=== PATIENT | male | born 1945 | race Caucasian/White ===

== ENCOUNTER → 2017-09-12 13:57 | Outpatient (CLI) | payer MEDICARE, SELFPAY ==
--- NOTE | 2017-09-12 | DI.RAD.S_ITS ---
PROCEDURE: XR SHOULDER RT MIN 2V INDICATIONS: SHOULDER PAIN TECHNIQUE: 3 views of the shoulder were acquired. COMPARISON: [facility], , XR SHOULDER 2V RIGHT, 02/16/2005, 12:13. FINDINGS: Bones: No fractures or dislocations. No suspicious bony lesions. Visualized ribs appear intact. Degenerative a.c. joint disease is again noted. Soft tissues: No suspicious soft tissue calcifications. IMPRESSION: Arthritis right a.c. joint Dictated by: Parish Abarca M.D. on 09/12/2017 at 14:25 Approved by: Parish Abarca M.D. on 09/12/2017 at 14:26
--- NOTE | 2017-09-12 | DI.CT.S_ITS ---
PROCEDURE: CT CHEST WO CON INDICATIONS: Lung nodules TECHNIQUE: Noncontrast 2.0-2.5 mm thick sections acquired from the pulmonary apices to the posterior costophrenic angles. 7 mm thick coronal and sagittal MIP reformats were then acquired. A low radiation dose technique was utilized. COMPARISON: [facility], CT, THORAX WITHOUT CONTRAST, 09/28/2010, 12:46. [facility], CT, PE STUDY (CTA CHEST), 01/08/2011, 20:59. [facility], CT, THORAX WITHOUT CONTRAST, 09/24/2016, 13:18. [facility], CR, CHEST 2 VIEW, 07/03/2014, 16:56. FINDINGS: Image quality: Diagnostic, given the low radiation dose technique. Lungs and pleura: There is mild to moderate emphysema. Small pulmonary nodules are present in the lower lobes bilaterally, unchanged in size. For example, there is a 3 mm nodule in the right lower lobe (series 3 image 103), unchanged. A calcified nodule is seen in the same slice in the right lower. A couple of nodules are present in the left lower lobe, measuring 2 mm (series 3 image 99) and 3 mm (series 3 image 113), also stable. There is a calcified nodule in the right upper lobe in the posterior segment. There is left basilar scars/atelectasis. Mediastinum: Heart size is normal. No pericardial effusion. No mediastinal adenopathy by size criteria. Thoracic aorta and central pulmonary arteries are normal in size. Esophagus is normal in caliber. Tiny hiatal hernia. Bones and chest wall: No suspicious bony lesions. No vertebral body compression fractures. No axillary or supraclavicular adenopathy by size criteria. Thyroid gland is normal. Abdomen: There is a 3.5 cm exophytic cyst in the superior pole the left kidney. Visualized upper abdomen solid organs and bowel loops appear normal in the absence of contrast. IMPRESSION: 1. Stable subcentimeter lung nodules bilaterally in lower lobes as described. 2. Calcified nodules are likely secondary to old granulomatous disease. 3. Mild to moderate emphysema. Fleischner Society criteria for SOLID lung nodule followup. Nodule size (mm)Low-risk patientHigh-risk patient<6 (single or multiple)No routine followup.Optional CT at 12 months. 6-8 (single or multiple)CT at 6-12 months, then optional CT at 18-24 mo.CT at 6-12 months, then CT at 18-24 months. >8 (single)CT at 3 months, PET-CT, or biopsy. Same as for low-risk pts. >8 (multiple)CT at 3-6 months, then optional CT at 18-24 mo.CT at 3-6 months, then CT at 18-24 months. Fleischner Society criteria for SUB-SOLID lung nodule followup. Solitary pure ground-glass nodules<6 mm (ground glass or part solid)No followup needed. 6 mm or larger (ground glass)CT at 6-12 months to confirm persistence, then CT every 2 years until 5 years.6 mm or larger (part solid)CT at 3-6 months to confirm persistence, then annual CT until 5 years if unchanged and solid component remains <6 mm. Multiple sub-solid nodules<6 mmCT at 3-6 months, then CT consider at 2 & 4 years for high risk patients. [address] at 3-6 months. Subsequent management based on most suspicious lesions. Recommendations do not apply to lung cancer screening, patients with immunosuppression, or patients with known primary cancer. Dictated by: Calvin Fields M.D. on 09/12/2017 at 16:20 Approved by: Calvin Fields M.D. on 09/14/2017 at 13:44
== END ==
PROVIDERS: PCP Family Medicine; Visit Provider Family Medicine
DX: R91.8 Other nonspecific abnormal finding of lung field (principal); J43.9 Emphysema, unspecified; M19.011 Primary osteoarthritis, right shoulder
CPT/HCPCS: 71250; 73030

== ENCOUNTER → 2017-09-22 12:40 | Outpatient (CLI) | payer MEDICARE, SELFPAY ==
--- NOTE | 2017-09-22 | DI.US.S_ITS ---
PROCEDURE: US ABD AORTA ANEURYSM SCREEN INDICATIONS: AAA SCREEN TECHNIQUE: Real time scanning was performed of the aorta and iliac arteries, with image documentation. COMPARISON: None. FINDINGS: Aorta: Proximal aortic diameter measures 2.3 cm. Mid-aorta measures 1.8 cm. Distal aortic diameter is 1.5 cm. Iliac arteries: Right common iliac artery measures 1.0 cm. Left common iliac artery measures 1.1 cm. IMPRESSION: No aortic aneurysm Dictated by: Parish Abarca M.D. on 09/22/2017 at 13:33 Approved by: Parish Abarca M.D. on 09/22/2017 at 13:34
== END ==
PROVIDERS: PCP Family Medicine; Visit Provider Family Medicine
DX: Z13.6 Encounter for screening for cardiovascular disorders (principal)
CPT/HCPCS: 76706

== ENCOUNTER → 2018-09-25 15:47 | Outpatient (CLI) | payer MEDICARE, SELFPAY ==
--- NOTE | 2018-09-25 | DI.RAD.S_ITS ---
PROCEDURE: XR CHEST 2V INDICATIONS: HISTORY OF PNEUMONIA,BACK PAIN TECHNIQUE: 2 views of the chest were acquired. COMPARISON: [facility], , CHEST 2 VIEW, 07/03/2014, 16:56. FINDINGS: Surgical changes and devices: None. Lungs and pleura: No acute consolidation. Scattered subsegmental atelectasis and/or scarring. No pleural effusions or pneumothorax. Blunting of the left costophrenic angle is unchanged Mediastinum: Mediastinal contours are normal. Heart size is normal. Bones and chest wall: No suspicious bony abnormalities. Soft tissues appear unremarkable. IMPRESSION: No acute disease. Scattered scarring/atelectasis. Dictated by: Abram Pulliam M.D. on 09/25/2018 at 17:12 Approved by: Abram Pulliam M.D. on 09/25/2018 at 17:13
== END ==
PROVIDERS: PCP Family Medicine; Visit Provider Family Medicine
DX: M54.9 Dorsalgia, unspecified (principal); Z87.01 Personal history of pneumonia (recurrent)
CPT/HCPCS: 71046

== ENCOUNTER → 2018-11-09 10:55 | Outpatient (CLI) | payer MEDICARE, SELFPAY ==
--- NOTE | 2018-11-09 11:08 | DI.CT.S_ITS ---
PROCEDURE: CT CHEST WO CON INDICATIONS: CHEST PAIN TECHNIQUE: Noncontrast 5 mm thick sections acquired from the pulmonary apices to the posterior costophrenic angles. 1 mm lung window, 5 mm thick coronal and sagittal and 7 mm axial MIP reformats were then acquired. For radiation dose reduction, the following was used: automated exposure control, adjustment of mA and/or kV according to patient size. COMPARISON: [facility], CT, CT CHEST WO CON, 09/12/2017, 14:17. FINDINGS: Image quality: Excellent. Lungs and pleura: No acute consolidation. Scattered subsegmental atelectasis and/or scarring. Upper lobe predominant centrilobular emphysema. Scattered calcified granulomatous change, chronic. 2 mm right basilar pulmonary nodule is unchanged. Lingular linear/bandlike scarring and atelectasis. Additional 2 mm nodules in the left lung base, for example image 26 series 2, also unchanged. Central bronchial wall thickening, with areas of mucoid impaction involving the left lower lobe. No pleural effusions or pneumothorax. Central and peripheral airways are patent and normal in caliber. Mediastinum: Heart size is normal. Coronary artery calcifications are present. No pericardial effusion. Small right posterior thigh containing diaphragmatic hernia. He No mediastinal adenopathy by size criteria. Thoracic aorta and central pulmonary arteries are normal in size. Esophagus is normal in caliber. No hiatal hernia. Bones and chest wall: No suspicious bony lesions. No vertebral body compression fractures. No axillary or supraclavicular adenopathy by size criteria. Thyroid gland unremarkable. Abdomen: Visualized upper abdominal solid organs and bowel loops appear normal in the absence of contrast. Simple appearing left renal cyst measuring 3-4 cm befor as before e IMPRESSION: Overall, no acute process. No focal consolidation. Chronic scarring and atelectasis as above. Redemonstration of long standing granulomatous sequela, unchanged. Coronary artery disease. Upper lobe predominant centrilobular emphysema. Central bronchial wall thickening, suggesting reactive airways disease and/or nonspecific bronchitis. Dictated by: Abram Pulliam M.D. on 11/09/2018 at 13:31 Approved by: Abram Pulliam M.D. on 11/09/2018 at 13:43
== END ==
PROVIDERS: PCP Family Medicine; Visit Provider Family Medicine
DX: R07.9 Chest pain, unspecified (principal); J98.4 Other disorders of lung; J98.11 Atelectasis; I25.10 Atherosclerotic heart disease of native coronary artery without angina pectoris; J43.2 Centrilobular emphysema
CPT/HCPCS: 71250

== ENCOUNTER 2019-01-03 17:38 | Emergency (ER) | payer MEDICARE, SELFPAY ==
[2019-01-03 17:45] VITALS: BP 150/83; PULSE 106; RESP 15; TEMP 38.5; O2SAT 99
--- NOTE | 2019-01-03 18:12 | ED.FEVER ---
HPI - Fever General Chief Complaint: Fever Stated Complaint: says running a temp of 103. Time Seen by Provider: 01/03/19 18:09 Source: patient Mode of arrival: ambulatory Limitations: no limitations History of Present Illness HPI Narrative: Patient is a 73-year-old male. Has a history of COPD. Here for evaluation of a fever. He states that he has had the fever for the past 3 days. He did take some Tylenol or ibuprofen today. He did contact his primary doctor told him that if the fever ?spikes ?he needed to come to the emergency department. He denies any chest pain, shortness of breath, abdominal pain. He does state that he has had off and on lower back pain for the past several weeks if not months or more. He also has left-sided groin pain that has also been off and on for the past several weeks if not months or longer. No urinary symptoms. No change in bowel habits. No rashes. no other sick contacts. He states that he does have a cough at this is been going on for 8 years now. He also has a sore throat that he contributes to sinus congestion which has also been going on for many years now. Related Data Home Medications Medication Instructions Recorded Confirmed aspirin 81 mg PO QPM 01/03/19 01/03/19 cholecalciferol (vitamin D3) 1,000 unit PO QPM 01/03/19 01/03/19 [Vitamin D3] cyanocobalamin (vitamin B-12) 1,000 mcg PO QPM 01/03/19 01/03/19 [Vitamin B-12] latanoprost 1 drp OPHTHALMIC (EYE) BEDTIME 01/03/19 01/03/19 pravastatin 20 mg PO BEDTIME 01/03/19 01/03/19 tiotropium bromide [Spiriva with 1 cap INHALATION DAILY 01/03/19 01/03/19 HandiHaler] Allergies Allergy/AdvReac Type Severity Reaction Status Date / Time No Known Drug Allergies Allergy Verified 01/03/19 17:45 Review of Systems Constitutional Constitutional: Reports fever(s) and Denies headache(s) Eyes Eyes: Denies change in vision ENT Ears, Nose, Mouth, and Throat: Denies headache(s) and Denies disequilibrium Cardiovascular Cardiovascular: Denies chest pain, Denies edema, Denies palpitations and Denies dyspnea Respiratory Respiratory: Denies dyspnea Gastrointestinal Gastrointestinal: Denies abdominal pain, Denies nausea and Denies vomiting Genitourinary Genitourinary: Denies dysuria Comments: Left-sided groin pain Musculoskeletal Musculoskeletal: Denies abnormal gait, Reports back pain, Denies myalgias and Denies arthralgias Integumentary/Breasts Skin/Breast: Denies lesions and Denies rash Neurologic Neurologic: Denies abnormal gait, Denies behavioral changes, Denies headache(s) and Denies disequilibrium Psychiatric Psychiatric: Denies behavioral changes Endocrine Endocrine: Denies palpitations Hematologic/Lymphatic Hematologic/Lymphatic: Denies easy bleeding and Denies easy bruising [facility], [facility] Medical History COPD (chronic obstructive pulmonary disease) (Acute) Social History Smoking Status: Current every day smoker Social History Smoking Status: Current every day smoker Exam Initial Vital Signs Initial Vital Signs: Vital Signs Temperature 101.3 F H 01/03/19 17:45 Pulse Rate 106 H 01/03/19 17:45 Respiratory Rate 15 01/03/19 17:45 Blood Pressure 150/83 H 01/03/19 17:45 Pulse Oximetry 99 01/03/19 17:45 Const General: cooperative, healthy appearing, comfortable, well developed, well groomed and No acute distress Orientation: alert and oriented x3 HENMT Head: normal to inspection and normocephalic Ears: TM's normal bilaterally Mouth: oral mucosae normal Throat: posterior oropharynx normal Resp Effort & Inspection: normal respiratory effort Auscultation: clear to auscultation bilaterally Cardio Rate: regular rate Rhythm: regular rhythm Pulses: radial pulses present GI Inspection: non-distended Palpation: soft, No firm and No tender Rectal Exam: visual inspection normal Other: Patient has no left-sided groin tenderness. He does state that the tenderness is over 1 of the abductor tendons. No prostate tenderness on rectal exam. Back/Spine/Pelvis Thoracic/Lumbar Spine: No thoracic spinal tenderness and No lumbar spinal tenderness Skin Lesions: no lesions Rashes: no rashes Neuro General: alert and awake Cognition: normal cognition Speech: speech normal Motor: muscle tone normal throughout Sensory Exam: no sensory deficits noted Extrem General: normal to inspection and capillary refill normal Psych Appearance: grossly normal and well kempt Course Orders Ordered: ED Orders 01/03/19 18:11 XR chest 2V Stat 01/03/19 18:14 EKG-12 Lead Stat 01/03/19 18:30 Complete Blood Count AUTO DIFF Stat Comprehensive Metabolic Panel Stat Lactate (Lactic Acid) Stat Lipase Stat Procalcitonin Stat 01/03/19 18:50 Blood Culture Stat Discontinued Medications Acetaminophen (Tylenol) 650 mg PO NOW ONE Stop: 01/03/19 18:10 Last Admin: 01/03/19 19:23 Dose: 650 mg Documented by: VAN Sodium Chloride (Normal Saline 0.9%) 1,000 mls @ 1,000 mls/hr IV BOLUS ONE Stop: 01/03/19 19:08 Last Infusion: 01/03/19 20:13 Dose: 0 mls/hr Documented by: Admin: 01/03/19 19:24 Dose: 1,000 mls/hr Documented by: VAN Vital Signs Vital signs: Vital Signs - 8 hr 01/03/19 17:45 01/03/19 18:32 01/03/19 19:34 Temperature 101.3 F H 100.4 F H Pulse Rate 106 H 96 H 88 Respiratory Rate 15 17 Blood Pressure 150/83 H Blood Pressure [Right Arm] 152/69 H 136/61 Pulse Oximetry 99 97 98 01/03/19 20:12 01/03/19 20:13 Temperature 101.4 F H 101.4 F H Pulse Rate 82 Respiratory Rate 19 Blood Pressure 140/64 Blood Pressure [Right Arm] Pulse Oximetry 99 MDM - Fever Lab Data Attestation: I reviewed the patient's lab results. Result diagrams: 01/03/19 18:30 01/03/19 18:30 Labs: Lab Results 01/03/19 01/03/19 01/03/19 Range/Units 18:30 18:30 18:30 WBC 15.5 H (4.5-11.0) X10^3/uL RBC 4.71 (4.5-5.9) X10^6/uL Hgb 14.6 (13.5-17.5) g/dL Hct 41.9 (41-53) % MCV 89.1 (80-100) fL MCH 31.0 (26-34) PG MCHC 34.8 (30-36) % RDW 13.5 (11.6-14.8) % Plt Count 159 (150-400) X10^3/uL Neut % (Auto) 88.2 H (50-75) % Lymph % (Auto) 4.8 L (25-40) % Sandoval % (Auto) 6.2 (3-14) % Eos % (Auto) 0.3 L (2-4) % Baso % (Auto) 0.5 (0-2) % Neut # (Auto) 37294 H (5774-4560) /uL Lymph # (Auto) 700 L (1555-3256) /uL Sandoval # (Auto) 1000 H (0-900) /uL Eos # (Auto) 0 (0-450) /uL Baso # (Auto) 100 (0-100) /uL Sodium 135 L (137-145) mmol/L Potassium 3.6 (3.4-5.1) mmol/L Chloride 104 (98-107) mmol/L Carbon Dioxide 22 (22-32) mmol/L BUN 20 (9-20) mg/dL Creatinine 0.90 (0.66-1.25) mg/dL Estimated GFR > 60.0 (>60) mL/min BUN/Creatinine Ratio 22.2 H (6-22) Glucose 110 (80-110) mg/dL Lactate (0.7-2.1) mmol/L Calcium 9.0 (8.4-10.2) mg/dL Total Bilirubin 0.9 (0.2-1.3) mg/dL AST 23 (17-59) IU/L ALT 19 L (21-72) IU/L Alkaline Phosphatase 72 (38-126) U/L Total Protein 7.1 (6.3-8.2) g/dL Albumin 3.9 (3.5-5.0) g/dL Globulin 3.2 (1.7-4.1) g/dL Albumin/Globulin Ratio 1.2 (1.0-2.8) Lipase 34 (23-300) U/L Procalcitonin 0.05 (<0.5) ng/mL 01/03/19 Range/Units 18:30 WBC (4.5-11.0) X10^3/uL RBC (4.5-5.9) X10^6/uL Hgb (13.5-17.5) g/dL Hct (41-53) % MCV (80-100) fL MCH (26-34) PG MCHC (30-36) % RDW (11.6-14.8) % Plt Count (150-400) X10^3/uL Neut % (Auto) (50-75) % Lymph % (Auto) (25-40) % Sandoval % (Auto) (3-14) % Eos % (Auto) (2-4) % Baso % (Auto) (0-2) % Neut # (Auto) (7707-8971) /uL Lymph # (Auto) (0610-6040) /uL Sandoval # (Auto) (0-900) /uL Eos # (Auto) (0-450) /uL Baso # (Auto) (0-100) /uL Sodium (137-145) mmol/L Potassium (3.4-5.1) mmol/L Chloride (98-107) mmol/L Carbon Dioxide (22-32) mmol/L BUN (9-20) mg/dL Creatinine (0.66-1.25) mg/dL Estimated GFR (>60) mL/min BUN/Creatinine Ratio (6-22) Glucose (80-110) mg/dL Lactate 0.9 (0.7-2.1) mmol/L Calcium (8.4-10.2) mg/dL Total Bilirubin (0.2-1.3) mg/dL AST (17-59) IU/L ALT (21-72) IU/L Alkaline Phosphatase (38-126) U/L Total Protein (6.3-8.2) g/dL Albumin (3.5-5.0) g/dL Globulin (1.7-4.1) g/dL Albumin/Globulin Ratio (1.0-2.8) Lipase (23-300) U/L Procalcitonin (<0.5) ng/mL Urine Dip Bedside Urine Glucose Negative Bedside Urine Bilirubin - Negative Bedside Urine Ketone - Negative Urine Specific [place] 1.020 Bedside Urine Occult Blood - Negative Bedside Urine pH 6.0 Bedside Urine Protein +/- 15 Bedside Urine Urobilinogen +/- 1mg Bedside Urine Nitrite - Negative Bedside Urine Leukocytes - Negative Esterase Imaging Data Chest x-ray: Radiologist's impression: [address] [address] XRay Report Signed Patient: Judah Cee [facility]#: [id number] : 3Acct:[id number] Age/Sex: 73 / MDate of Service: 01/03/19 Loc: ED Accession Number: [id number] Procedure: XR chest 2V Ordering Provider: Rj Yañez D.O. PROCEDURE: XR CHEST 2V INDICATIONS: sepsis screen for PNA TECHNIQUE: 2 views of the chest were acquired. COMPARISON: [facility], CR, XR CHEST 2V, 09/25/2018, 15:55. FINDINGS: Surgical changes and devices: None. Lungs and pleura: Bibasilar scarring. No acute pulmonary infiltrates. No pleural effusions or pneumothorax. Mediastinum: Mediastinal contours are normal. Heart size is normal. Bones and chest wall: No suspicious bony abnormalities. Soft tissues appear unremarkable. IMPRESSION: Bibasilar scarring. No evidence acute pulmonary process. Dictated by: Sonu Barnoe M.D. on 01/03/2019 at 19:14 Approved by: Sonu Barone M.D. on 01/03/2019 at 19:14 ECG Data Attestation: I personally reviewed and interpreted this ECG as follows: Prior ECG tracings: not available for review Interpretation: Sinus rhythm Ventricular rate of 92 Normal axis Normal QRS Normal QTC No ST T wave changes MDM Narrative Medical decision making narrative: Patient is extremely nontoxic appearing. I do not have a specific source of his infection. Does not appear to be pneumonia. His abdomen is soft. He has no testicular tenderness. His prostate is nontender. I do not think that is low back pain is related to prostatitis. He has no signs urinary tract infection. No rashes. I do not have a specific source of his infection. I have no indication for antibiotics. I did considered atypical pneumonia given his COPD exacerbation but he has had no chest pain or shortness of breath or change in his cough. We did discuss use of Tylenol and ibuprofen. I have him follow up with his primary provider. He was given strict return precautions. He expressed understanding and agreement with plan. Discharge Plan Departure Patient Disposition: Home Clinical Impression: Fever of unknown origin Discharge Date/Time: 01/03/19 20:16 Instructions: DI for Fever (Symptom) -- Adult Activity Restrictions/Additional Instructions: You can do 2 regular strength Tylenol every 4-6 hours and/or 3x 200 mg Motrin/ibuprofen every 6-8 hours as needed for fevers. Contact your primary doctor tomorrow for a follow-up. Return to the emergency department for any new symptoms to include chest pain, shortness of breath, productive cough, abdominal pain, rashes, urinary symptoms, or any other concerning symptoms. Continue all of your other medications as directed Prescriptions: No Action latanoprost 0.005 % drops 1 drp OPHTHALMIC (EYE) BEDTIME RF: 0 cyanocobalamin (vitamin B-12) [Vitamin B-12] 1,000 mcg tablet 1,000 mcg PO QPM RF: 0 aspirin 81 mg tablet,chewable 81 mg PO QPM RF: 0 pravastatin 20 mg tablet 20 mg PO BEDTIME RF: 0 cholecalciferol (vitamin D3) [Vitamin D3] 1,000 unit capsule 1,000 unit PO QPM RF: 0 Spiriva with HandiHaler 18 mcg capsule, w/inhalation device 1 cap INHALATION DAILY RF: 0 Referrals: Cisco Villafana MD [Primary Care Provider] -
[2019-01-03 18:32] VITALS: BP 152/69; PULSE 96; O2SAT 97
[2019-01-03 18:43] LABS: Add Manual Diff / Slide Review NO; Basophils Absolute Auto 100 /uL (0-100); Basophils Percent Auto 0.5 % (0-2); Eosinophils Absolute Auto 0 /uL (0-450); Eosinophils Percent Auto 0.3 % (2-4); Hematocrit 41.9 % (41-53); Hemoglobin 14.6 g/dL (13.5-17.5); Lymphocytes Absolute Auto 700 /uL (1100-4500); Lymphocytes Percent Auto 4.8 % (25-40); Mean Corpuscular HGB Conc 34.8 % (30-36); Mean Corpuscular Volume 89.1 fL (80-100); Monocytes Absolute Auto 1000 /uL (0-900); Monocytes Percent Auto 6.2 % (3-14); Neutrophils Absolute Auto 13700 /uL (1500-7000); Neutrophils Percent Auto 88.2 % (50-75); Platelet Count 159 X10^3/uL (150-400); Red Blood Cell Count 4.71 X10^6/uL (4.5-5.9); Red Cell Distribution Width 13.5 % (11.6-14.8); White Blood Cell Count 15.5 X10^3/uL (4.5-11.0)
[2019-01-03 18:57] LABS: Lactate (Lactic Acid) 0.9 mmol/L (0.7-2.1)
[2019-01-03 18:58] LABS: Alanine Aminotransferase 19 IU/L (21-72); Albumin 3.9 g/dL (3.5-5.0); Albumin Globulin Ratio 1.2 (1.0-2.8); Alkaline Phosphatase 72 U/L (38-126); Aspartate Aminotransferase 23 IU/L (17-59); BUN Creatinine Ratio 22.2 (6-22); Bilirubin Total 0.9 mg/dL (0.2-1.3); Blood Urea Nitrogen 20 mg/dL (9-20); Carbon Dioxide 22 mmol/L (22-32); Chloride 104 mmol/L (98-107); Estimated Glomerular Filt Rate > 60.0 mL/min (>60); Globulin 3.2 g/dL (1.7-4.1); Glucose 110 mg/dL (80-110); HEMOLYSIS < 15 (0-50); Lipase 34 U/L (23-300); Potassium 3.6 mmol/L (3.4-5.1); Sodium 135 mmol/L (137-145); Total Protein 7.1 g/dL (6.3-8.2)
[2019-01-03 19:17] LABS: Procalcitonin 0.05 ng/mL (<0.5)
[2019-01-03] MEDS: ACETAMINOPHEN 325 MG TABLET 650 MG PO (19:23)
[2019-01-03] MEDS: SODIUM CHLORIDE 0.9% 1,000 ML 1000 ML IV (19:24)
[2019-01-03 19:34] VITALS: BP 136/61; PULSE 88; RESP 17; TEMP 38; O2SAT 98
[2019-01-03 20:12] VITALS: TEMP 38.6
[2019-01-03 20:13] VITALS: BP 140/64; PULSE 82; RESP 19; TEMP 38.6; O2SAT 99
== END 2019-01-03 20:16 | disposition home or self-care (01) ==
PROVIDERS: Emergency Provider Emergency Medicine; PCP Family Medicine
DX: R50.9 Fever, unspecified (principal); R07.9 Chest pain, unspecified; J44.9 Chronic obstructive pulmonary disease, unspecified
CPT/HCPCS: 36415; 36591; 71046; 80053; 81003; 83605; 83690; 84145; 85025; 87040; 93005; 93010; 96360; 99283; 99285

== ENCOUNTER → 2019-08-28 13:21 | Outpatient (CLI) | payer MEDICARE, SELFPAY ==
[2019-08-28 14:34] LABS: Add Manual Diff / Slide Review NO; Basophils Absolute Auto 100 /uL (0-100); Basophils Percent Auto 0.8 % (0-2); Eosinophils Absolute Auto 400 /uL (0-450); Eosinophils Percent Auto 5.7 % (2-4); Hematocrit 48.7 % (41-53); Hemoglobin 16.8 g/dL (13.5-17.5); Lymphocytes Absolute Auto 1600 /uL (1100-4500); Lymphocytes Percent Auto 21.5 % (25-40); Mean Corpuscular HGB Conc 34.4 % (30-36); Mean Corpuscular Hemoglobin 31.1 PG (26-34); Mean Corpuscular Volume 90.5 fL (80-100); Monocytes Absolute Auto 700 /uL (0-900); Monocytes Percent Auto 9.9 % (3-14); Neutrophils Absolute Auto 4600 /uL (1500-7000); Neutrophils Percent Auto 62.1 % (50-75); Platelet Count 197 X10^3/uL (150-400); Red Blood Cell Count 5.38 X10^6/uL (4.5-5.9); Red Cell Distribution Width 13.8 % (11.6-14.8); White Blood Cell Count 7.5 X10^3/uL (4.5-11.0)
[2019-08-28 15:01] LABS: INR 1.1 (0.9-1.3); Prothrombin Time 12.8 SECONDS (10.1-12.7)
[2019-08-28 15:03] LABS: PTT Partial Thromboplastin Tim 30 SECONDS (26.4-36.2)
[2019-08-28 16:14] LABS: BUN Creatinine Ratio 17.5 (6-22); Blood Urea Nitrogen 18 mg/dL (9-20); Calcium 9.6 mg/dL (8.4-10.2); Carbon Dioxide 29 mmol/L (22-32); Chloride 106 mmol/L (98-107); Estimated Glomerular Filt Rate > 60.0 mL/min (>60); Glucose 108 mg/dL (80-110); HEMOLYSIS < 15 (0-50); Potassium 4.2 mmol/L (3.4-5.1); Sodium 142 mmol/L (137-145)
== END ==
PROVIDERS: PCP Family Medicine; Referring Provider Urology; Visit Provider Urology
DX: C61 Malignant neoplasm of prostate (principal)
CPT/HCPCS: 36415; 80048; 85025; 85610; 85730; 86900; 86901

== ENCOUNTER → 2021-02-04 12:01 | Outpatient (CLI) | payer MEDICARE, SELFPAY ==
[2021-02-04 12:34] LABS: COVID19 -Nasal RAPID Negative (Negative)
== END ==
PROVIDERS: PCP Family Medicine; Visit Provider Nurse Practitioner
DX: Z20.822 Contact with and (suspected) exposure to COVID-19 (principal); Z01.812 Encounter for preprocedural laboratory examination
CPT/HCPCS: 87635; C9803

== ENCOUNTER 2021-02-06 14:13 | Day surgery (SDC) | payer MEDICARE, SELFPAY ==
--- NOTE | 2021-02-06 | PATH_ITS ---
[facility] Accession Number: [id number] . 01 Material submitted: . PART A: cecum - CECAL POLYP 2MM PART B: colon - ASCENDING COLON POLYPS X7: 4MM, 2MM, 6MM (X3), 8MM (X2) PART C: colon - TRANSVERSE COLON POLYP 6MM . 02 Diagnosis: A. Cecal Polyp, 2 mm, Biopsy: Tubular adenoma. . B. Ascending Colon Polyps, 4, 2, 6 (x3), 8 mm (x2), Biopsies: Fragments of tubular adenoma (seven polyps removed). . C. Transverse Colon Polyp, 6 mm, Biopsy: Tubular adenoma. MRV 02/09/2021 1004 Local . 02 Electronically signed: . Andrei Carpenter MD, PhD, Pathologist NPI- [id number] . 01 Gross description: . Part A: CECAL POLYP 2MM: Received in formalin is 1 fragment(s) of cash, soft tissue measuring 0.4 x 0.3 x 0.3 cm submitted entirely in 1 cassette(s) Part B: ASCENDING COLON POLYPS X7: 4MM, 2MM, 6MM (X3), 8MM (X2): Received in formalin are multiple fragment(s) of cash, soft tissue measuring 2.5 x 0.4 x 0.3 cm in aggregate submitted entirely in 1 cassette(s) Part C: TRANSVERSE COLON POLYP 6MM: Received in formalin are 2 fragment(s) of cash, soft tissue measuring 0.4 x 0.3 x 0.2 cm to 0.4 x 0.2 x 0.1 cm submitted entirely in 1 cassette(s) /TONG 02/07/2021 0507 Local . 02 Pathologist provided ICD-10: D12.0, D12.2, D12.3 . 02 CPT . 660866, 093983, 799530 Performed at: 01 [facility] [address] [id number] MD Nimesh Stevenson MD Phone: [phone] Performed at: 02 [facility]ated within [facility] [address] [address] [place], [place] [id number] MD Reshma Pittman MD Phone: [phone]
--- NOTE | 2021-02-06 12:43 | P.HP_ITS ---
History of Present Illness History of Present Illness Date Patient Seen: 02/06/21 Chief complaint: SCREENING COLONOSCOPY Narrative: 75 year old male comes in today for consideration of a screening colonoscopy. Last colonoscopy on 06/07/2012, indicated for history of colorectal polyps. Sigmoid colon was noted to be redundant. Six polyps on the left side seen between 2 and 8 mm, all hyperplastic ecxept for the 60 cm polyp which was approximately 4 mm, tubular adenoma. There have been no lower GI symptoms suggesting disease such as change in bowel habits, bleeding, abdominal pain or anemia. There's been no family history of colon cancer or colon polyps. Overall health issues have been stable, including no major cardiac events for at least 6 weeks. PCP: Dr. Villafana Past medical history: COPD Lung nodules History of pneumonia Tobacco dependence Hyperlipidemia History of colon polyps Erectile dysfunction Past surgical history: Tonsillectomy Cataract extraction Prostatectomy Family history: No colon cancer or colon polyps. Family history: , retired. Fourteen years of education. Patient History Medical History (Updated 01/18/19 @ 00:00 by ) COPD (chronic obstructive pulmonary disease) Family & Social History Tobacco & Substance use: Smoking Status Current every day smoker alcohol intake frequency holiday/special occasion Substance Use Type marijuana Meds Home Medications and Allergies Home Medications Medication Instructions Recorded Confirmed Type aspirin 81 mg chewable tablet 81 mg PO QPM 01/03/19 02/06/21 History cholecalciferol (vitamin D3) 25 1,000 unit PO QPM 01/03/19 02/06/21 History mcg (1,000 unit) capsule (Vitamin D3) cyanocobalamin (vitamin B-12) 1,000 mcg PO QPM 01/03/19 02/06/21 History 1,000 mcg tablet (Vitamin B-12) latanoprost 0.005 % eye drops 1 drp OPHTHALMIC (EYE) BEDTIME 01/03/19 02/06/21 History pravastatin 20 mg tablet 20 mg PO BEDTIME 01/03/19 02/06/21 History tiotropium bromide 18 mcg capsule 1 cap INHALATION DAILY 01/03/19 02/06/21 History with inhalation device (Spiriva with HandiHaler) Allergies Allergy/AdvReac Type Severity Reaction Status Date / Time No Known Drug Allergies Allergy Verified 02/06/21 14:58 Review of Systems Review of Systems Narrative: See HPI. Exam Narrative Exam Narrative: GENERAL: Alert and oriented, appearing stated age and in no acute distress. HEENT: Head normocephalic/atraumatic. LUNGS: Clear to ausculation bilaterally, no wheezes, rhonchi or rales. CV: Normal S1 and S2 with regular rate and rhythm, no audible murmurs, rubs or gallops. ABDOMEN: Soft, non-tender, non-distended, no organomegaly. Positive bowel sounds. EXTREMITIES: No clubbing, cyanosis, or edema. NEURO: Cranial nerves II through XII grossly intact, no focal deficits. PSYCH: Alert and oriented x 3. SKIN: No concerning lesions. Assessment & Plan Assessment & Plan narrative: 1. History of polyps 2. Screening for colon cancer Plan for colonoscopy. The nature and character of the procedure as well as anticipated results were discussed. The possibility of not completing the procedure was also discussed. Possible complications including aspiration pneu monia, bleeding, perforation and reaction to medications either for sedation or preparation and missed lesions were discussed. Questions were answered and proceeding to the colonoscopy was elected. Informed consent signed. I sincerely appreciate the referral allowing me to participate in this patient's care. Please contact me with any questions or concerns. Time Spent With Patient Critical Care time: I spent a total of [] minutes of critical care time on this patient's care today; this time is exclusive of procedural time.
--- NOTE | 2021-02-06 12:49 | PM.OP.COLON ---
Operative Date/Time/Diagnoses Date of procedure: 02/06/21 Procedure Notes SCOAP/Timeout: 5:01 p.m. Procedure in detail: ENDOSCOPIST: Dania Scott MD Sedation RN: Bar Alejo RN Sedation start time: 5:01 p.m. Sedation end time: 6:06 p.m. PROCEDURE: Colonoscopy with biopsy INDICATIONS: 1. History of colon polyps 2. Screening for colon cancer MEDICATION: Levsin 0.125 mg sublingual, incremental doses of Versed and fentanyl until appropriate level sedation achieved. ASA CLASS: 2 CECAL WITHDRAWAL TIME: 26 minutes COMPLICATIONS: None. EXTENT OF PROCEDURE: Cecum. QUALITY OF PREP: Good with portions of liquid stool. PROCEDURE: Prior to insertion of the colonoscope, a digital rectal examination was accomplished with circumferential palpation of the distal rectal mucosa without significant findings being noted. The high-definition colonoscope was passed into the rectum in the usual fashion and advanced over to the cecum without difficulty. The ileocecal valve, appendiceal stoma, and medial wall all could be inspected and a 2 mm polyp was seen and removed with cold biopsy forceps, excellent hemostasis ASCENDING COLON: As the colonoscope was withdrawn, care was taken to expose and inspect the haustral folds and 7 polyps, ranging between 2 and 8 mm, were removed, excellent hemostasis. HEPATIC FLEXURE: Normal, no polyps, diverticula or other abnormalities. TRANSVERSE COLON: A 6 mm polyp was seen and removed with cold biopsy forceps. Otherwise, no diverticula or other abnormalities. DESCENDING COLON: Minor diverticulosis, otherwise, no polyps or other abnormalities. SIGMOID COLON: Minor diverticulosis, otherwise, no polyps or other abnormalities. RECTUM: Normal. J maneuver was produced. There was no significant perianal disease. The J maneuver was broken. The remainder of the rectum was inspected and there was no external hemorrhoid disease. The scope was withdrawn. IMPRESSION: 1. Cecal polyp x1, 2 mm, removed with cold biopsy forceps 2. Ascending polyp x7, 2-8 mm, removed with cold biopsy forceps 3. Transverse polyp x1, 6 mm 4. Left-sided diverticulosis, mild PLAN: 1. Follow-up in clinic status post pathology results. The possibility of a missed lesion including a malignancy has been discussed with the patient previously. Potential alarm symptoms have been discussed and should be reported immediately.
[2021-02-06] MEDS: LACTATED RINGERS 1,000 ML 200 ML IV (14:42)
[2021-02-06] MEDS: FLEETS ENEMA 1 EACH PR ×2 (14:43→15:22)
[2021-02-06 14:52] VITALS: BP 144/89; PULSE 105; RESP 20; TEMP 36.6; O2SAT 100; BMI 24.5
[2021-02-06] MEDS: HYOSCYAMINE 0.125 MG TABLET PO (15:07)
--- NOTE | 2021-02-06 15:23 | SUR.PREOP ---
pt had brown cloudy stool and showed Dr. Scott and pt was given a second enema. Pt is laying on left side awaiting to see if enema will work.
[2021-02-06] MEDS: MIDAZOLAM 5 MG/5 ML VIAL IV (18:09)
[2021-02-06] MEDS: fentaNYL 250 MCG/5 ML INJ IV (18:09)
[2021-02-06 18:20] VITALS: BP 142/78; PULSE 70; RESP 16; TEMP 36.6; O2SAT 98
--- NOTE | 2021-02-06 18:28 | SUR.PHASEII ---
All discharge papers discussed with patient ; dr Lieberman at bedside speaking to patient.
== END 2021-02-06 18:29 | disposition home or self-care (01) ==
PROVIDERS: PCP Family Medicine; Referring Provider Student in an Organized Health Care Education/Training Program; Visit Provider Student in an Organized Health Care Education/Training Program
PROC: 0DJD8ZZ Inspection of Lower Intestinal Tract, Via Natural or Artificial Opening Endoscopic (ICD-10-PCS; CPT 45378; principal; 2021-02-06 15:15)
DX: Z12.11 Encounter for screening for malignant neoplasm of colon (principal); Z86.010 Personal history of colon polyps; J44.9 Chronic obstructive pulmonary disease, unspecified; F17.210 Nicotine dependence, cigarettes, uncomplicated; K57.30 Diverticulosis of large intestine without perforation or abscess without bleeding; D12.0 Benign neoplasm of cecum; D12.2 Benign neoplasm of ascending colon; D12.3 Benign neoplasm of transverse colon
CPT/HCPCS: 45380; J2250; J3010

== ENCOUNTER → 2021-08-07 12:56 | Outpatient (CLI) | payer MEDICARE, SELFPAY ==
--- NOTE | 2021-08-07 12:59 | DI.RAD.S_ITS ---
PROCEDURE: FL BARIUM SWALLOW W SPEECH INDICATIONS: COUGH COMPARISON: None. TECHNIQUE: Examination was conducted in conjunction with speech pathology per standard protocol. In the lateral projection, filming was performed of the patient swallowing. AP projection filming may also be performed with patient swallowing. COMPARISON: FINDINGS: Function: The oral preparatory phase appears normal, with proper containment with liquids. There is premature spillage of solid contrast materials during showing process. The subsequent oral propulsive phase, pharyngeal phase, and esophageal phase of swallowing appear normal with all proffered substances. No laryngotracheal penetration or aspiration. Pooling identified within the right vallecula. 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 No cervical esophageal webs. No Zenker's diverticulum. No strictures. Calibrated 13 millimeter barium tablet readily passed through the esophagus into the stomach. IMPRESSION: 1. Large cricopharyngeal bar. 2. Premature spillage of barium contrasted solid material during chewing process. 3. Right vallecular pooling. Please see speech pathology for for additional study details. Dictated by: Socorro Carlin MD, PhD on 08/07/2021 at 15:06 Approved by: Socorro Carlin MD, PhD on 08/07/2021 at 15:08
--- NOTE | 2021-08-07 17:00 | ST.SWALLOW ---
Visit Care Team Role Provider Type Cisco Villafana MD Primary Care Provider Physician Specialty: Family Practice Address: [address] [place] [address], [facility] [place], [address] Email: [email or web address] Daniel Koehler MD Attending Provider Physician Referring Provider Specialty: Ear, Nose, Throat Address: [address] [place] [address], [id number] Email: [email or web address] Modified Barium Swallow Study [employer] Modified Barium Swallow Study Start: 08/07/21 16:09 Freq: Status: Active Protocol: Document 08/07/21 16:10 LNK (Rec: 08/07/21 17:00 LNK [id number]) Modified Barium Swallow Study Total Time Visit Start Time 13:30 Visit Stop Time 14:00 Total Visit Minutes [address] Koehler ENT; TOBI Mancera Reason for Referral dysphagia Setting Setting Outpatient Care Patient Information Identification Type Name,Date of Patient History Pt was seen for a Modified Barium Swallow Study at the referral of JESS Ovalles. Ptt c/o frequent cough with meals and PND/secretions. Pt reports a medical histoy of allergies, continuous smoking, frequent throat clearing and coughing and dry mouth. pt reported that his notes frequent coughing and encouraged pt to see his PCP, who referred to Dr. Koehler. Subjective Observations pt was seated in the fluoroscopy chair with directions and procedures described for him. He indicated he understood and agreed to proceed. Patient Positioning Position View Lat-A/P Imaging Lateral View Textures Administered Trials Presented Thin Liquid via Spoon,Thin Liquid via Cup,Pudding Thick Liquid via Spoon,Regular Textures Oral Phase Source: MBSIMP (TM) (C) Bolus Specific Scoring Grid Lip Closure No Impairment (WNL) Tongue Control During Bolus Hold No Impairment (WNL) Bolus Prep/Mastication No Impairment (WNL) Bolus Transport/Lingual Motion No Impairment (WNL) A/P Lingual Propulsion Delay Yes: premature to the valeculla and pyriform sinuses Number of Seconds Delayed (seconds) 5-10s with solids Oral Residue Minimal Impairment Residue Clearing Minimal Impairment Nasal Regurgitation No Additional Oral Phase Observations OME and DKS were WNL. Pt has missing lower teeth with an upper denture. Mastication was adequate. Pt chewed for several seconds before swallowing. No significant oral residue was noted across all trials. Pharyngeal Phase Source: MBSIMP (TM) (C) Bolus Specific Scoring Grid Delayed Initiation of Pharyngeal Swallow Yes: premature to the valeculla and pyriform sinuses Number of Seconds Delayed (seconds) 5-10s with solids Soft Palate Elevation No Impairment (WNL) Tongue Base Strength/Range of Motion Moderate Impairment Residue Along the Tongue Base Yes: moderate residue secondary to large C3-C4 osteophytes Clearance of Residue Along Tongue Base Moderate Impairment Laryngeal Elevation Moderate Impairment Anterior Hyoid Movement Moderate Impairment Epiglottic Range of Motion WFL Vallecular Residue Yes: moderate residue secondary to large C3-C4 osteophytes Clearance of Vallecular Residue Moderate Impairment Laryngeal Vestibular Closure No Impairment (WNL) Pharyngeal Stripping Wave Moderate Impairment Posterior Pharyngeal Wall Residue Yes: moderate residue secondary to large C3-C4 osteophytes Clearance of Posterior Pharyngeal Wall Moderate Impairment Residue Upper Esophageal Sphincter Opening Moderate Impairment Residue in the Pyriform Sinuses Yes Clearance of Residue in the Pyriform Moderate Impairment Sinuses Pharyngoesophageal Backflow Observed Yes: small diverticulum under osteophytes with large CP bar below Additional Pharyngeal Phase Observations Premature spillage of all trials pre-swallow to the valeculla and pyriform sinuses . C3-C4 osteophytes identified with small diverticulum and large CP bar present near the laryngeal opening noted. The hyolaryngeal elevation was moderately reduced. Combined with the osteophytes, the reduction in hyolaryngeal elevation resulting in significant pooling in the valeculla and the pyriform sinuses. 4+ swallows were attempted to clear the solid trials from the pharynx. Additional water was required, but did not completely clear the residue. No contrast was observed to penetrate the laryngeal vesibule. No aspiration was observed. Pt did clear his throat x1 during MBSS. A/P View Textures Administered Trials Presented Barium Tablet A/P View Observations Pharyngeal Contraction WFL Vocal Fold Function Good Residue Observed Valleculae Right Esophageal Function WFL Esophageal Clearance Upright Position WFL Additional Observations The 13 mm tablet cleared the esophagus to the stomach. Clinical Impressions Dysphagia Type Pharyngeal phase Findings Pt presented with pharyngeal phase dysphagia contributed by large osteophyte and a large CP bar. At rest the osteophytes intrude into the pharynx altering its shape. This may be related to the frequent coughing caused by pooled secretions in the valeculla and during the swallow. There may be interference by the protruding pharyngeal tissue near C3-C4 causing slight penetration and triggering cough. Still pictures of the MBSS were describe to the pt relative to his results. Pt inquired as strategies or other things he could do to ease the flow of secretions. He was encouraged to drink more water/fluids to thin secretions Patient Appropriate for Therapy Follow up appointment x1 to review MBSS Recommendations Diet Comments No change in diet texture or liquids Aspiration Precautions Recommended Precautions Alternate Liquids/Solids Additional Precautions increased mindfulness of swallowing/reduce distractions /talking during meal Treatment Plan Therapy Recommendations Outpatient Speech Therapy, Compensatory Strategy Education
--- NOTE | 2021-08-07 17:03 | ST.SWALLOW ---
Visit Care Team Role Provider Type Cisco Villafana MD Primary Care Provider Physician Specialty: Family Practice Address: [address] [place] [address], [place], [address] Email: [email or web address] Daniel Koehler MD Attending Provider Physician Referring Provider Specialty: Ear, Nose, Throat Address: [address] [place] [address], [address] Email: [email or web address] Modified Barium Swallow Study [employer] Modified Barium Swallow Study Start: 08/07/21 16:09 Freq: Status: Active Protocol: Document 08/07/21 16:10 LNK (Rec: 08/07/21 17:00 LNK [id number]) Modified Barium Swallow Study Total Time Visit Start Time 13:30 Visit Stop Time 14:00 Total Visit Minutes [address] Koehler ENT; TOBI Mancera Reason for Referral dysphagia Setting Setting Outpatient Care Patient Information Identification Type Name,Date of Patient History Pt was seen for a Modified Barium Swallow Study at the referral of JESS Ovalles. Ptt c/o frequent cough with meals and PND/secretions. Pt reports a medical history of allergies, continuous smoking, frequent throat clearing and coughing and dry mouth. pt reported that his notes frequent coughing and encouraged pt to see his PCP, who referred to Dr. Koehler. Subjective Observations pt was seated in the fluoroscopy chair with directions and procedures described for him. He indicated he understood and agreed to proceed. Patient Positioning Position View Lat-A/P Imaging Lateral View Textures Administered Trials Presented Thin Liquid via Spoon,Thin Liquid via Cup,Pudding Thick Liquid via Spoon,Regular Textures Oral Phase Source: MBSIMP (TM) (C) Bolus Specific Scoring Grid Lip Closure No Impairment (WNL) Tongue Control During Bolus Hold No Impairment (WNL) Bolus Prep/Mastication No Impairment (WNL) Bolus Transport/Lingual Motion No Impairment (WNL) A/P Lingual Propulsion Delay Yes: premature to the valeculla and pyriform sinuses Number of Seconds Delayed (seconds) 5-10s with solids Oral Residue Minimal Impairment Residue Clearing Minimal Impairment Nasal Regurgitation No Additional Oral Phase Observations OME and DKS were WNL. Pt has missing lower teeth with an upper denture. Mastication was adequate. Pt chewed for several seconds before swallowing. No significant oral residue was noted across all trials. Pharyngeal Phase Source: MBSIMP (TM) (C) Bolus Specific Scoring Grid Delayed Initiation of Pharyngeal Swallow Yes: premature to the valeculla and pyriform sinuses Number of Seconds Delayed (seconds) 5-10s with solids Soft Palate Elevation No Impairment (WNL) Tongue Base Strength/Range of Motion Moderate Impairment Residue Along the Tongue Base Yes: moderate residue secondary to large C3-C4 osteophytes Clearance of Residue Along Tongue Base Moderate Impairment Laryngeal Elevation Moderate Impairment Anterior Hyoid Movement Moderate Impairment Epiglottic Range of Motion WFL Vallecular Residue Yes: moderate residue secondary to large C3-C4 osteophytes Clearance of Vallecular Residue Moderate Impairment Laryngeal Vestibular Closure No Impairment (WNL) Pharyngeal Stripping Wave Moderate Impairment Posterior Pharyngeal Wall Residue Yes: moderate residue secondary to large C3-C4 osteophytes Clearance of Posterior Pharyngeal Wall Moderate Impairment Residue Upper Esophageal Sphincter Opening Moderate Impairment Residue in the Pyriform Sinuses Yes Clearance of Residue in the Pyriform Moderate Impairment Sinuses Pharyngoesophageal Backflow Observed Yes: small diverticulum under osteophytes with large CP bar below Additional Pharyngeal Phase Observations Premature spillage of all trials pre-swallow to the valeculla and pyriform sinuses . C3-C4 osteophytes identified with small diverticulum and large CP bar present near the laryngeal opening noted. The hyolaryngeal elevation was moderately reduced. Combined with the osteophytes, the reduction in hyolaryngeal elevation resulting in significant pooling in the valeculla and the pyriform sinuses. 4+ swallows were attempted to clear the solid trials from the pharynx. Additional water was required, but did not completely clear the residue. No contrast was observed to penetrate the laryngeal vesibule. No aspiration was observed. Pt did clear his throat x1 during MBSS. A/P View Textures Administered Trials Presented Barium Tablet A/P View Observations Pharyngeal Contraction WFL Vocal Fold Function Good Residue Observed Valleculae Right Esophageal Function WFL Esophageal Clearance Upright Position WFL Additional Observations The 13 mm tablet cleared the esophagus to the stomach. Clinical Impressions Dysphagia Type Pharyngeal phase Findings Pt presented with pharyngeal phase dysphagia contributed by large osteophyte and a large CP bar. At rest the osteophytes intrude into the pharynx altering its shape. This may be related to the frequent coughing caused by pooled secretions in the valeculla and during the swallow. There may be interference by the protruding pharyngeal tissue near C3-C4 causing slight penetration and triggering cough. Still pictures of the MBSS were describe to the pt relative to his results. Pt inquired as strategies or other things he could do to ease the flow of secretions. He was encouraged to drink more water/fluids to thin secretions Patient Appropriate for Therapy Follow up appointment x1 to review MBSS Recommendations Diet Comments No change in diet texture or liquids Aspiration Precautions Recommended Precautions Alternate Liquids/Solids Additional Precautions increased mindfulness of swallowing/reduce distractions /talking during meal Treatment Plan Therapy Recommendations Outpatient Speech Therapy, Compensatory Strategy Education
== END ==
PROVIDERS: PCP Family Medicine; Referring Provider Otolaryngology; Visit Provider Otolaryngology
DX: R05.9 Cough, unspecified (principal); R13.10 Dysphagia, unspecified
CPT/HCPCS: 74230; 92611

== ENCOUNTER → 2021-12-11 15:11 | Outpatient (CLI) | payer MEDICARE, SELFPAY ==
[2021-12-11 17:32] LABS: Prostate Specific Antigen < 0.064 ng/mL (0.10-4.00)
== END ==
PROVIDERS: PCP Family Medicine; Referring Provider Urology; Visit Provider Urology
DX: C61 Malignant neoplasm of prostate (principal); N39.3 Stress incontinence (female) (male)
CPT/HCPCS: 36415; 84153

== ENCOUNTER → 2022-06-24 14:27 | Outpatient (CLI) | payer MEDICARE, SELFPAY ==
--- NOTE | 2022-06-30 10:06 | PM.PFT.1 ---
Pulmonary Function Test Referral & Results Date Patient Seen: 06/24/22 Requesting provider: Cisco Villafana Results: The spirometry demonstrates an FVC of 4.27 L which is 96% of predicted. The FEV1 was measured at 2.31 L which is 73% of predicted. The FEV1/FVC ratio was 54 which is 75% of predicted. Following the administration of bronchodilator there was 12% improvement in FEV1 and a 54% improvement in FEF 25-75%. Lung volumes show an SVC of 4.55 L which is 96% of predicted. The diffusing capacity was measured at 21.52 which is 61% of predicted. No hemoglobin value was provided, so no correction for potential anemia could be made, if appropriate. The maximum voluntary ventilation was minimally reduced Interpretation: This study demonstrates mild obstructive lung disease based on reduction FEV1. There is evidence of some limited benefit following bronchodilator administration as above particularly small airway flow based on improvement in FEF 25-75% Lung volumes are normal There is a [id number] reduction diffusing capacity suggesting disease at the capillary alveolar level Clinical correlation suggested
== END ==
PROVIDERS: PCP Family Medicine; Referring Provider Family Medicine; Visit Provider Family Medicine
DX: J44.9 Chronic obstructive pulmonary disease, unspecified (principal); F17.210 Nicotine dependence, cigarettes, uncomplicated
CPT/HCPCS: 94060; 94726; 94729

== ENCOUNTER → 2022-08-09 10:50 | Outpatient (CLI) | payer MEDICARE, SELFPAY ==
--- NOTE | 2022-08-09 | DI.RAD.S_ITS ---
PROCEDURE: XR HIP W PEL IF DONE RT 2V INDICATIONS: right hip/ilium pain TECHNIQUE: AP pelvis with lateral view(s) of the right hip(s). COMPARISON: None. FINDINGS: Bones: Normal mineralization. No visible fractures. Normal bone alignment. There is apparent decrease of the right sacroiliac joint space given the current projection. Moderate symmetric hip joint space loss and mild spurring. No suspicious bone lesions. Soft tissues: The visualized bowel gas pattern is normal. No suspicious soft tissue calcifications. IMPRESSION: 1. 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 2. No visible fractures. 3. Moderate symmetric hip joint degeneration. Dictated by: Sandra Romero M.D. on 08/09/2022 at 12:35 Approved by: Sandra Romero M.D. on 08/09/2022 at 12:37
== END ==
PROVIDERS: PCP Family Medicine; Referring Provider Family Medicine; Visit Provider Family Medicine
DX: M25.551 Pain in right hip (principal); M79.18 Myalgia, other site; M16.11 Unilateral primary osteoarthritis, right hip
CPT/HCPCS: 73502

== ENCOUNTER → 2022-10-28 15:54 | Outpatient (CLI) | payer MEDICARE, SELFPAY ==
--- NOTE | 2022-10-28 15:57 | DI.RAD.S_ITS ---
PROCEDURE: XR ELBOW RT MIN 3V INDICATIONS: Right elbow pain TECHNIQUE: 3 views of the elbow were acquired. COMPARISON: None. FINDINGS: Bones: No fractures or dislocations. No suspicious bony lesions. Degenerative marginal osteophytes noted in the elbow joint. Soft tissues: No elbow joint effusion. No suspicious soft tissue calcifications. 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 on 10/28/2022 at 19:45
--- NOTE | 2022-10-28 15:57 | DI.RAD.S_ITS ---
PROCEDURE: XR LUMBAR SPINE MIN 4V INDICATIONS: Low back pain TECHNIQUE: 5 views of the lumbar spine acquired, COMPARISON: None. FINDINGS: Bones: Vertebral body height and bone mineralization normal. Grade 1 retrolisthesis noted at L2-3. Hypertrophic facet joints noted throughout the exam particularly lower lumbar spine. Disc spaces are relatively preserved. Small anterior osteophytes present. Oblique images are unremarkable Soft tissues: Overlying bowel gas pattern is normal. No suspicious soft tissue calcifications. IMPRESSION: Facet arthropathy associated with grade 1 retrolisthesis L2-3 Approved by: Ray Olson M.D. on 10/28/2022 at 19:46
== END ==
PROVIDERS: PCP Family Medicine; Referring Provider Anesthesiology; Visit Provider Anesthesiology
DX: M19.021 Primary osteoarthritis, right elbow (principal); M25.521 Pain in right elbow; M47.816 Spondylosis without myelopathy or radiculopathy, lumbar region; M43.16 Spondylolisthesis, lumbar region; M54.50 Low back pain, unspecified; M79.18 Myalgia, other site
CPT/HCPCS: 72110; 73080; 99214

== ENCOUNTER → 2023-01-14 14:44 | Outpatient (CLI) | payer MEDICARE, SELFPAY ==
--- NOTE | 2023-01-14 | DI.RAD.S_ITS ---
PROCEDURE: XR KNEE RT 3V INDICATIONS: right knee pain TECHNIQUE: 3 views of the knee were acquired. COMPARISON: None. FINDINGS: Bones: No fractures or dislocations. No suspicious bony lesions. Mild tricompartmental knee joint degeneration. There is benign appearing bone spur or an osteochondroma in the posterior medial aspect of the proximal tibia. Soft tissues: Small joint effusion. No suspicious soft tissue calcifications. IMPRESSION: 1. Mild degenerative joint disease. 2. Small knee joint effusion. 3. A benign appearing bone spur or osteochondroma in the posterior medial aspect of the proximal tibia. If there is focal pain and tenderness, consider MRI for further evaluation. Dictated by: Calvin Fields M.D. on 01/14/2023 at 15:11 Approved by: Calvin Fields M.D. on 01/14/2023 at 15:13
== END ==
PROVIDERS: Family Provider Family Medicine; PCP Family Medicine; Referring Provider Family Medicine; Visit Provider Family Medicine
DX: M17.11 Unilateral primary osteoarthritis, right knee (principal); M25.561 Pain in right knee; M25.461 Effusion, right knee
CPT/HCPCS: 73562

== ENCOUNTER 2023-02-09 16:30 | Outpatient (RCR) | payer MEDICARE, SELFPAY ==
--- NOTE | 2022-12-09 16:30 | PT.OIE ---
Current Diagnoses Low back pain, unspecified (12/09/22) Past Medical History (Last Updated 10/28/22 @ 16:00 by Brandon Valdes MD) COPD (chronic obstructive pulmonary disease) Low back pain Right buttock pain Right elbow pain Visit Care Team Role Provider Type Cisco Villafana MD Family Provider Physician Primary Care Provider Specialty: Family Practice Address: [address] [place], [address] Email: [email or web address] Brandon Valdes MD Attending Provider Physician Referring Provider Specialty: Anesthesiology Interventional Radiology Pain Management Address: [address] [place], [address] Email: [email or web address] Physical Therapy Initial Evaluation PT-OP-A Visit Information Start: 12/09/22 17:42 Freq: Status: Active Protocol: Document 12/09/22 15:45 DCW (Rec: 12/09/22 17:49 [facility] [id number]) Out-Patient Physical Therapy Visit Information Visit Information Visit Type Initial Evaluation Visit Start Time 15:45 Visit Stop Time 16:30 Total Visit Minutes 45 Visit Number 1 Number of DRAWING SUPERVISOR Visits 0 Evaluation Information Evaluation Date 12/09/22 PT-OP-B Current Condition Start: 12/09/22 17:42 Freq: Status: Active Protocol: Document 12/09/22 15:45 DCW (Rec: 12/09/22 17:49 [facility] [id number]) Current Condition History of Current Condition Onset Date A few months Current Complaints Increased low back pain with walking History of Current Condition Pt is a 77 year old male presenting with a few month history of increased right low back pain with walking. Pt notes that he can walk approximately one block before his back starts to bother him . Notes that when it starts, it sends a jolt of pain with every heel strike of his right foot. Nothing else really seems to increase symptoms, and he feels better with rest. 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 Admits he has not been as active recently and feels like his hamstrings are tighter than they used to be. Prior Treatments and Tests Lumbar x-ray: IMPRESSION: Facet arthropathy associated with grade 1 retrolisthesis L2 -3 per Ray Olson M.D. on 10/28/2022 Treatment Goals Patient/Caregiver Goals Return to walking >1 mile without pain PT-OP-C Subjective Start: 12/09/22 17:42 Freq: Status: Active Protocol: Document 12/09/22 15:45 DCW (Rec: 12/09/22 17:51 DCW [id number]) OP-PT Subjective Patient Comments Patient Comments I tried some pill, it didn't really do much. The x-ray showed something between my pelvis and spine, I guess. I didn't really understand it. Patient Questionnaires Oswestry Low Back Index Oswestry Score 5/50 = 10% PT-OP-F Manual Assessment Start: 12/09/22 17:42 Freq: Status: Active Protocol: Document 12/09/22 15:45 DCW (Rec: 12/10/22 08:47 DCW [id number]) Manual Assessments Soft Tissue Assessment Soft Tissue Mobility Assessment Moderate tone with tenderness to palpation 2/4: Pain with wincinh along right lumbar paraspinals and right superior glutes Joint Mobility Assessment Joint Mobility Assessment No noted mobility issues or hips or lumbar vertebrae PT-OP-K Range of Motion Start: 12/09/22 17:42 Freq: Status: Active Protocol: Document 12/09/22 15:45 DCW (Rec: 12/09/22 17:49 DCW [id number]) Lumbar Spine Range of Motion Lumbar Spine Active Degrees Testing Position Standing Flexion 60 Extension 20 ROM Limitations Soft Tissue Tightness,Muscle Tone PT-OP-L Special Tests Start: 12/09/22 17:42 Freq: Status: Active Protocol: Document 12/09/22 15:45 DCW (Rec: 12/10/22 08:47 DCW [id number]) Special Tests Lumbar Spine Special Tests Vertical Spine Loading Test Results Negative Straight Leg Raise Test Results Mild HS tightness bilaterally Slump Test Results Negative Manual Traction Test Results Negative Compression Test Results Negative A-P Shearing Test Results Negative PT-OP-M Strength Start: 12/09/22 17:42 Freq: Status: Active Protocol: Document 12/09/22 15:45 DCW (Rec: 12/10/22 08:47 DCW [id number]) Trunk Strength Trunk Manual Muscle Testing Core Stabilization Good abdominal strength with verbal bracing cues, pt admits it is not a muscle group he regularly uses when walking/ lifting PT-OP-Q Treatments Start: 12/09/22 17:42 Freq: Status: Active Protocol: Document 12/09/22 15:45 DCW (Rec: 12/09/22 17:49 DCW [id number]) Therapeutic Exercises Supine Exercises TrA Marching Supine Exercise Name PPT /c TrA contraction - Marching Standing Exercises Self-STM Standing Exercise Name R Lumbar STM /c Tennis ball Pallof Press Standing Exercise Name Pallof Press Side bilateral Resistance Lv 3 PT-OP-T Assessment and Plan Start: 12/09/22 17:42 Freq: Status: Active Protocol: Document 12/09/22 15:45 DCW (Rec: 12/10/22 16:02 DCW [id number]) Physical Therapy Assessment Rehab Potential Rehabilitation Potential Good Evaluation Complexity Number of Personal Factors/Comorbidities 1-2 Number of Body Systems Impaired 1-2 Clinical Presentation at Evaluation Stable Impairments Impairments Functional Activities, Functional Mobility,Pain,ROM, Soft Tissue Mobility,Strength, Tone Goals Two Impairment Pt unable to walk >1 block before stopping due to low back pain Transport Assistant Goal (LTG) Pt to report ability to ambulate >one mile 3x/week without increased back pain in order to return to prior level of functional mobilty. LTG Duration 02/08/23 One Impairment Pt does not have an appropriate home exercise program Short Term Goal (STG) Pt to be independent and compliant with an appropriate HEP. STG Duration 01/09/23 Assessment Summary Assessment Pt presents with signs and symptoms consistent with right -sided lumbar paraspinal musculature dysfunction. Unable to replicate any of pt' s subjective complaints today with clinical testing, did note increased soft tissue tone and slight tenderness with palpation along lower trap and upper glutes, as well as a tendency for minimal use of abdominal bracing while walking and lifting. Pt will likely benefit from skilled therapy focusing on core strengthening, STM, joint mobilizations, and body mechanics in order to improve lumbar mobility and decrease soreness present while ambulating. Physical Therapy Plan Frequency and Duration Frequency of Treatment 2x/Week Plan of Care Start Date 12/09/22 Plan of Care End Date 02/08/23 Therapeutic Interventions Therapeutic Interventions Gait Training,Home Exercise Program,Joint Mobilizations, Manual Therapy,Patient/ Caregiver Education,Self-Care/ Home Management,Soft Tissue Mobilization,Therapeutic Activities,Therapeutic Exercises Modalities Cold Pack/Ice Massage,Electric Stimulation,Hot Packs, Ultrasound Next Visit Focus/Plan Next Note Type Treatment Note Next Visit Plan Core strengthening, STM, lumbar mobilizations
--- NOTE | 2022-12-09 16:30 | PT.OPPOC ---
Physical, Occupational & Speech Therapy At [facility] Current Diagnoses Low back pain, unspecified (12/09/22) Visit Care Team Role Provider Type Cisco Villafana MD Family Provider Physician Primary Care Provider Specialty: Family Practice Address: [address] [place] [address], [facility] [place], [address] Email: [email or web address] Brandon Valdes MD Attending Provider Physician Referring Provider Specialty: Anesthesiology Interventional Radiology Pain Management Address: [address] [place] [address], [id number] Email: [email or web address] Plan Of Care PT-OP-T Assessment and Plan Start: 12/09/22 17:42 Freq: Status: Active Protocol: Document 12/09/22 15:45 DCW (Rec: 12/10/22 16:02 DCW [id number]) Physical Therapy Assessment Rehab Potential Rehabilitation Potential Good Evaluation Complexity Number of Personal Factors/Comorbidities 1-2 Number of Body Systems Impaired 1-2 Clinical Presentation at Evaluation Stable Impairments Impairments Functional Activities, Functional Mobility,Pain,ROM, Soft Tissue Mobility,Strength, Tone Goals Two Impairment Pt unable to walk >1 block before stopping due to low back pain Contractor Field Hauling Goal (LTG) Pt to report ability to ambulate >one mile 3x/week without increased back pain in order to return to prior level of functional mobilty. LTG Duration 02/08/23 One Impairment Pt does not have an appropriate home exercise program Short Term Goal (STG) Pt to be independent and compliant with an appropriate HEP. STG Duration 01/09/23 Assessment Summary Assessment Pt presents with signs and symptoms consistent with right -sided lumbar paraspinal musculature dysfunction. Unable to replicate any of pt' s subjective complaints today with clinical testing, did note increased soft tissue tone and slight tenderness with palpation along lower trap and upper glutes, as well as a tendency for minimal use of abdominal bracing while walking and lifting. Pt will likely benefit from skilled therapy focusing on core strengthening, STM, joint mobilizations, and body mechanics in order to improve lumbar mobility and decrease soreness present while ambulating. Physical Therapy Plan Frequency and Duration Frequency of Treatment 2x/Week Plan of Care Start Date 12/09/22 Plan of Care End Date 02/08/23 Therapeutic Interventions Therapeutic Interventions Gait Training,Home Exercise Program,Joint Mobilizations, Manual Therapy,Patient/ Caregiver Education,Self-Care/ Home Management,Soft Tissue Mobilization,Therapeutic Activities,Therapeutic Exercises Modalities Cold Pack/Ice Massage,Electric Stimulation,Hot Packs, Ultrasound Next Visit Focus/Plan Next Note Type Treatment Note Next Visit Plan Core strengthening, STM, lumbar mobilizations Plan of Care Dates Plan of Care Start Date 12/09/22 Plan of Care End Date 02/08/23 Electronically Signed by: Gee Sanchez, PT 12/10/22 3748 If you are in agreement with this Plan of Care, please return a signed and dated copy. I have reviewed this Plan of Care and certify that the skilled therapy services above are required to meet the patient?s needs. Physician Signature Date Printed Name and Credentials Clinical Instructor Signature Printed Name and Credentials
--- NOTE | 2022-12-16 16:30 | PT.OTN ---
Current Diagnoses Low back pain, unspecified (12/16/22) Physical Therapy Treatment Note PT-OP-A Visit Information Start: 12/09/22 17:42 Freq: Status: Active Protocol: Document 12/16/22 15:45 DCW (Rec: 12/16/22 16:30 DCW [id number]) Out-Patient Physical Therapy Visit Information Visit Information Visit Type Treatment Note Visit Start Time 15:45 Visit Stop Time 16:30 Total Visit Minutes 45 Visit Number 2 Number of SCENE SHIFTER Visits 0 Evaluation Information Evaluation Date 12/09/22 PT-OP-B Current Condition Start: 12/09/22 17:42 Freq: Status: Active Protocol: Document 12/09/22 15:45 DCW (Rec: 12/09/22 17:49 DCW [id number]) Current Condition History of Current Condition Onset Date A few months Current Complaints Increased low back pain with walking History of Current Condition Pt is a 77 year old male presenting with a few month history of increased right low back pain with walking. Pt notes that he can walk approximately one block before his back starts to bother him . Notes that when it starts, it sends a jolt of pain with every heel strike of his right foot. Nothing else really seems to increase symptoms, and he feels better with rest. 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 Admits he has not been as active recently and feels like his hamstrings are tighter than they used to be. Prior Treatments and Tests Lumbar x-ray: IMPRESSION: Facet arthropathy associated with grade 1 retrolisthesis L2 -3 per Ray Olson M.D. on 10/28/2022 Treatment Goals Patient/Caregiver Goals Return to walking >1 mile without pain PT-OP-C Subjective Start: 12/09/22 17:42 Freq: Status: Active Protocol: Document 12/16/22 15:45 DCW (Rec: 12/16/22 16:30 DCW [id number]) OP-PT Subjective Patient Comments Patient Comments It's off and on. I walked a half a block to get my mail, and it was a little sore. PT-OP-F Manual Assessment Start: 12/09/22 17:42 Freq: Status: Active Protocol: Document 12/09/22 15:45 DCW (Rec: 12/10/22 08:47 DCW [id number]) Manual Assessments Soft Tissue Assessment Soft Tissue Mobility Assessment Moderate tone with tenderness to palpation 2/4: Pain with wincinh along right lumbar paraspinals and right superior glutes Joint Mobility Assessment Joint Mobility Assessment No noted mobility issues or hips or lumbar vertebrae PT-OP-K Range of Motion Start: 12/09/22 17:42 Freq: Status: Active Protocol: Document 12/09/22 15:45 DCW (Rec: 12/09/22 17:49 DCW [id number]) Lumbar Spine Range of Motion Lumbar Spine Active Degrees Testing Position Standing Flexion 60 Extension 20 ROM Limitations Soft Tissue Tightness,Muscle Tone PT-OP-L Special Tests Start: 12/09/22 17:42 Freq: Status: Active Protocol: Document 12/09/22 15:45 DCW (Rec: 12/10/22 08:47 DCW [id number]) Special Tests Lumbar Spine Special Tests Vertical Spine Loading Test Results Negative Straight Leg Raise Test Results Mild HS tightness bilaterally Slump Test Results Negative Manual Traction Test Results Negative Compression Test Results Negative A-P Shearing Test Results Negative PT-OP-M Strength Start: 12/09/22 17:42 Freq: Status: Active Protocol: Document 12/09/22 15:45 DCW (Rec: 12/10/22 08:47 DCW [id number]) Trunk Strength Trunk Manual Muscle Testing Core Stabilization Good abdominal strength with verbal bracing cues, pt admits it is not a muscle group he regularly uses when walking/ lifting PT-OP-Q Treatments Start: 12/09/22 17:42 Freq: Status: Active Protocol: Document 12/16/22 15:45 DCW (Rec: 12/16/22 16:30 DCW [id number]) Gym Equipment Therapeutic Ball Bridging Exercise Details Bridging with feet on ball Ball Size/Color Red - 55 cm Body Position Supine LTR Exercise Details LTR Ball Size/Color Red - 55 cm Body Position Supine Therapeutic Exercises Standing Exercises Hip Extension Standing Exercise Name Hip Extension Side bilateral Resistance Green loop Other Exercises Resisted Ambulation Other Exercise Name Resisted Side-stepping Resistance Green loop Manual Therapy Treatment Soft Tissue Mobilization Paraspinals Body Location R lumbar paraspinals, lower lat, upper glute Mobilization Type Strumming,Sustained Pressure Intensity/Depth Moderate Body Position Sidelying Manual Traction Lower Extremity Details Long axis LE traction /c strap Body Position Supine PT-OP-T Assessment and Plan Start: 12/09/22 17:42 Freq: Status: Active Protocol: Document 12/16/22 15:45 DCW (Rec: 12/16/22 16:30 DCW [id number]) Physical Therapy Assessment Impairments Impairments Functional Activities, Functional Mobility,Pain,ROM, Soft Tissue Mobility,Strength, Tone Goals Two Impairment Pt unable to walk >1 block before stopping due to low back pain Jump Iron Machine Presser Goal (LTG) Pt to report ability to ambulate >one mile 3x/week without increased back pain in order to return to prior level of functional mobilty. LTG Duration 02/08/23 One Impairment Pt does not have an appropriate home exercise program Short Term Goal (STG) Pt to be independent and compliant with an appropriate HEP. STG Duration 01/09/23 Assessment Summary Assessment Pt tolerated new treatments very well today, focused on STM to decrease tone, as well as hip/core strengthening. Pt instructed to continue with HEP and report back next visit how he felt following today's session. Physical Therapy Plan Frequency and Duration Frequency of Treatment 2x/Week Plan of Care Start Date 12/09/22 Plan of Care End Date 02/08/23 Therapeutic Interventions Therapeutic Interventions Gait Training,Home Exercise Program,Joint Mobilizations, Manual Therapy,Patient/ Caregiver Education,Self-Care/ Home Management,Soft Tissue Mobilization,Therapeutic Activities,Therapeutic Exercises Modalities Cold Pack/Ice Massage,Electric Stimulation,Hot Packs, Ultrasound Next Visit Focus/Plan Next Note Type Treatment Note Next Visit Plan Core strengthening, STM, lumbar mobilizations
--- NOTE | 2022-12-23 16:29 | PT.OTN ---
Current Diagnoses Low back pain, unspecified (12/23/22) Physical Therapy Treatment Note PT-OP-A Visit Information Start: 12/09/22 17:42 Freq: Status: Active Protocol: Document 12/23/22 15:45 DCW (Rec: 12/23/22 16:29 DCW [id number]) Out-Patient Physical Therapy Visit Information Visit Information Visit Type Treatment Note Visit Start Time 15:45 Visit Stop Time 16:30 Total Visit Minutes 45 Visit Number 3 Number of PUG MILL OPERATOR Visits 0 Evaluation Information Evaluation Date 12/09/22 PT-OP-B Current Condition Start: 12/09/22 17:42 Freq: Status: Active Protocol: Document 12/09/22 15:45 DCW (Rec: 12/09/22 17:49 DCW [id number]) Current Condition History of Current Condition Onset Date A few months Current Complaints Increased low back pain with walking History of Current Condition Pt is a 77 year old male presenting with a few month history of increased right low back pain with walking. Pt notes that he can walk approximately one block before his back starts to bother him . Notes that when it starts, it sends a jolt of pain with every heel strike of his right foot. Nothing else really seems to increase symptoms, and he feels better with rest. 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 Admits he has not been as active recently and feels like his hamstrings are tighter than they used to be. Prior Treatments and Tests Lumbar x-ray: IMPRESSION: Facet arthropathy associated with grade 1 retrolisthesis L2 -3 per Ray Olson M.D. on 10/28/2022 Treatment Goals Patient/Caregiver Goals Return to walking >1 mile without pain PT-OP-C Subjective Start: 12/09/22 17:42 Freq: Status: Active Protocol: Document 12/23/22 15:45 DCW (Rec: 12/23/22 16:29 DCW [id number]) OP-PT Subjective Patient Comments Patient Comments I'm still feeling it by the time I get back from my mailbox. PT-OP-F Manual Assessment Start: 12/09/22 17:42 Freq: Status: Active Protocol: Document 12/09/22 15:45 DCW (Rec: 12/10/22 08:47 DCW [id number]) Manual Assessments Soft Tissue Assessment Soft Tissue Mobility Assessment Moderate tone with tenderness to palpation 2/4: Pain with wincinh along right lumbar paraspinals and right superior glutes Joint Mobility Assessment Joint Mobility Assessment No noted mobility issues or hips or lumbar vertebrae PT-OP-K Range of Motion Start: 12/09/22 17:42 Freq: Status: Active Protocol: Document 12/09/22 15:45 DCW (Rec: 12/09/22 17:49 DCW [id number]) Lumbar Spine Range of Motion Lumbar Spine Active Degrees Testing Position Standing Flexion 60 Extension 20 ROM Limitations Soft Tissue Tightness,Muscle Tone PT-OP-L Special Tests Start: 12/09/22 17:42 Freq: Status: Active Protocol: Document 12/09/22 15:45 DCW (Rec: 12/10/22 08:47 DCW [id number]) Special Tests Lumbar Spine Special Tests Vertical Spine Loading Test Results Negative Straight Leg Raise Test Results Mild HS tightness bilaterally Slump Test Results Negative Manual Traction Test Results Negative Compression Test Results Negative A-P Shearing Test Results Negative PT-OP-M Strength Start: 12/09/22 17:42 Freq: Status: Active Protocol: Document 12/09/22 15:45 DCW (Rec: 12/10/22 08:47 DCW [id number]) Trunk Strength Trunk Manual Muscle Testing Core Stabilization Good abdominal strength with verbal bracing cues, pt admits it is not a muscle group he regularly uses when walking/ lifting PT-OP-Q Treatments Start: 12/09/22 17:42 Freq: Status: Active Protocol: Document 12/23/22 15:45 DCW (Rec: 12/23/22 16:29 DCW [id number]) Gym Equipment Shuttle Recovery Unilateral Squats Resistance 37# (one new) Shuttle Recovery Platform Stable Bilateral Squats Resistance 75# (two new) Shuttle Recovery Platform Stable Shuttle Balance Red Details WBOS, Staggered Therapeutic Exercises Standing Exercises Pallof Press Standing Exercise Name Pallof Press Side bilateral Resistance Lv 3 Manual Therapy Treatment Soft Tissue Mobilization Paraspinals Body Location R lumbar paraspinals, lower lat, upper glute Mobilization Type Strumming,Sustained Pressure Intensity/Depth Moderate Body Position Sidelying Manual Traction Lower Extremity Details Long axis B LE traction /c strap Body Position Supine PT-OP-T Assessment and Plan Start: 12/09/22 17:42 Freq: Status: Active Protocol: Document 12/23/22 15:45 DCW (Rec: 12/23/22 16:29 DCW [id number]) Physical Therapy Assessment Impairments Impairments Functional Activities, Functional Mobility,Pain,ROM, Soft Tissue Mobility,Strength, Tone Goals Two Impairment Pt unable to walk >1 block before stopping due to low back pain Jail Goal (LTG) Pt to report ability to ambulate >one mile 3x/week without increased back pain in order to return to prior level of functional mobilty. LTG Duration 02/08/23 One Impairment Pt does not have an appropriate home exercise program Short Term Goal (STG) Pt to be independent and compliant with an appropriate HEP. STG Duration 01/09/23 Assessment Summary Assessment Pt showing good response to treatment, decreased right paraspinal tone today, less tenderness during STM. Reviewed Pallof press HEP, continue to work on core strengthening and tone management. Physical Therapy Plan Frequency and Duration Frequency of Treatment 2x/Week Plan of Care Start Date 12/09/22 Plan of Care End Date 02/08/23 Therapeutic Interventions Therapeutic Interventions Gait Training,Home Exercise Program,Joint Mobilizations, Manual Therapy,Patient/ Caregiver Education,Self-Care/ Home Management,Soft Tissue Mobilization,Therapeutic Activities,Therapeutic Exercises Modalities Cold Pack/Ice Massage,Electric Stimulation,Hot Packs, Ultrasound Next Visit Focus/Plan Next Note Type Treatment Note Next Visit Plan Core strengthening, STM, lumbar mobilizations
--- NOTE | 2022-12-28 15:03 | PT.OTN ---
Current Diagnoses Low back pain, unspecified (12/28/22) Physical Therapy Treatment Note PT-OP-A Visit Information Start: 12/09/22 17:42 Freq: Status: Active Protocol: Document 12/28/22 14:15 DCW (Rec: 12/28/22 15:02 DCW [id number]) Out-Patient Physical Therapy Visit Information Visit Information Visit Type Treatment Note Visit Start Time 14:15 Visit Stop Time 15:00 Total Visit Minutes 45 Visit Number 4 Number of GARBAGE COLLECTOR SUPERVISOR Visits 0 Evaluation Information Evaluation Date 12/09/22 PT-OP-B Current Condition Start: 12/09/22 17:42 Freq: Status: Active Protocol: Document 12/09/22 15:45 DCW (Rec: 12/09/22 17:49 DCW [id number]) Current Condition History of Current Condition Onset Date A few months Current Complaints Increased low back pain with walking History of Current Condition Pt is a 77 year old male presenting with a few month history of increased right low back pain with walking. Pt notes that he can walk approximately one block before his back starts to bother him . Notes that when it starts, it sends a jolt of pain with every heel strike of his right foot. Nothing else really seems to increase symptoms, and he feels better with rest. 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 Admits he has not been as active recently and feels like his hamstrings are tighter than they used to be. Prior Treatments and Tests Lumbar x-ray: IMPRESSION: Facet arthropathy associated with grade 1 retrolisthesis L2 -3 per Ray Olson M.D. on 10/28/2022 Treatment Goals Patient/Caregiver Goals Return to walking >1 mile without pain PT-OP-C Subjective Start: 12/09/22 17:42 Freq: Status: Active Protocol: Document 12/28/22 14:15 DCW (Rec: 12/28/22 15:02 MDW [id number]) OP-PT Subjective Patient Comments Patient Comments Pt admits he is feeling pretty good today, had no problem up walking around today. PT-OP-F Manual Assessment Start: 12/09/22 17:42 Freq: Status: Active Protocol: Document 12/09/22 15:45 DCW (Rec: 12/10/22 08:47 DCW [id number]) Manual Assessments Soft Tissue Assessment Soft Tissue Mobility Assessment Moderate tone with tenderness to palpation 2/4: Pain with wincinh along right lumbar paraspinals and right superior glutes Joint Mobility Assessment Joint Mobility Assessment No noted mobility issues or hips or lumbar vertebrae PT-OP-K Range of Motion Start: 12/09/22 17:42 Freq: Status: Active Protocol: Document 12/09/22 15:45 DCW (Rec: 12/09/22 17:49 DCW [id number]) Lumbar Spine Range of Motion Lumbar Spine Active Degrees Testing Position Standing Flexion 60 Extension 20 ROM Limitations Soft Tissue Tightness,Muscle Tone PT-OP-L Special Tests Start: 12/09/22 17:42 Freq: Status: Active Protocol: Document 12/09/22 15:45 DCW (Rec: 12/10/22 08:47 DCW [id number]) Special Tests Lumbar Spine Special Tests Vertical Spine Loading Test Results Negative Straight Leg Raise Test Results Mild HS tightness bilaterally Slump Test Results Negative Manual Traction Test Results Negative Compression Test Results Negative A-P Shearing Test Results Negative PT-OP-M Strength Start: 12/09/22 17:42 Freq: Status: Active Protocol: Document 12/09/22 15:45 DCW (Rec: 12/10/22 08:47 DCW [id number]) Trunk Strength Trunk Manual Muscle Testing Core Stabilization Good abdominal strength with verbal bracing cues, pt admits it is not a muscle group he regularly uses when walking/ lifting PT-OP-Q Treatments Start: 12/09/22 17:42 Freq: Status: Active Protocol: Document 12/28/22 14:15 DCW (Rec: 12/28/22 15:02 DCW [id number]) Gym Equipment Shuttle Recovery Unilateral Squats Resistance 50# (two new) Shuttle Recovery Platform Stable Bilateral Squats Resistance 87# (three new) Shuttle Recovery Platform Stable Shuttle Balance Red Details WBOS, Staggered Therapeutic Exercises Standing Exercises Hip Extension Standing Exercise Name Hip Extension Side bilateral Resistance Green loop Other Exercises Resisted Ambulation Other Exercise Name Resisted Side-stepping Resistance Green loop Manual Therapy Treatment Soft Tissue Mobilization Paraspinals Body Location R lumbar paraspinals, lower lat, upper glute Mobilization Type Strumming,Sustained Pressure Intensity/Depth Moderate Body Position Sidelying Manual Traction Lower Extremity Details Long axis B LE traction /c strap Body Position Supine PT-OP-T Assessment and Plan Start: 12/09/22 17:42 Freq: Status: Active Protocol: Document 12/28/22 14:15 DCW (Rec: 12/28/22 15:02 DCW [id number]) Physical Therapy Assessment Impairments Impairments Functional Activities, Functional Mobility,Pain,ROM, Soft Tissue Mobility,Strength, Tone Goals Two Impairment Pt unable to walk >1 block before stopping due to low back pain Custom Ski Maker Goal (LTG) Pt to report ability to ambulate >one mile 3x/week without increased back pain in order to return to prior level of functional mobilty. LTG Duration 02/08/23 One Impairment Pt does not have an appropriate home exercise program Short Term Goal (STG) Pt to be independent and compliant with an appropriate HEP. STG Duration 01/09/23 Assessment Summary Assessment Pt showing good improvement with pain-free functional mobility, was able to go out walking around [place] this past weekend with no increased back pain, continue to focus on strengthening and tone management. Physical Therapy Plan Frequency and Duration Frequency of Treatment 2x/Week Plan of Care Start Date 12/09/22 Plan of Care End Date 02/08/23 Therapeutic Interventions Therapeutic Interventions Gait Training,Home Exercise Program,Joint Mobilizations, Manual Therapy,Patient/ Caregiver Education,Self-Care/ Home Management,Soft Tissue Mobilization,Therapeutic Activities,Therapeutic Exercises Modalities Cold Pack/Ice Massage,Electric Stimulation,Hot Packs, Ultrasound Next Visit Focus/Plan Next Note Type Treatment Note Next Visit Plan Core strengthening, STM, lumbar mobilizations
--- NOTE | 2023-01-06 14:18 | PT.OTN ---
Current Diagnoses Low back pain, unspecified (01/06/23) Physical Therapy Treatment Note PT-OP-A Visit Information Start: 12/09/22 17:42 Freq: Status: Active Protocol: Document 01/06/23 13:30 SP (Rec: 01/06/23 14:35 SP [id number]) Out-Patient Physical Therapy Visit Information Visit Information Visit Type Treatment Note Visit Start Time 13:30 Visit Stop Time 14:18 Total Visit Minutes 48 Visit Number 5 Number of STORE OPERATIONS ASSOCIATE Visits 1 Evaluation Information Evaluation Date 12/09/22 PT-OP-B Current Condition Start: 12/09/22 17:42 Freq: Status: Active Protocol: Document 12/09/22 15:45 DCW (Rec: 12/09/22 17:49 DCW [id number]) Current Condition History of Current Condition Onset Date A few months Current Complaints Increased low back pain with walking History of Current Condition Pt is a 77 year old male presenting with a few month history of increased right low back pain with walking. Pt notes that he can walk approximately one block before his back starts to bother him . Notes that when it starts, it sends a jolt of pain with every heel strike of his right foot. Nothing else really seems to increase symptoms, and he feels better with rest. 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 Admits he has not been as active recently and feels like his hamstrings are tighter than they used to be. Prior Treatments and Tests Lumbar x-ray: IMPRESSION: Facet arthropathy associated with grade 1 retrolisthesis L2 -3 per Ray Olson M.D. on 10/28/2022 Treatment Goals Patient/Caregiver Goals Return to walking >1 mile without pain PT-OP-C Subjective Start: 12/09/22 17:42 Freq: Status: Active Protocol: Document 01/06/23 13:30 SP (Rec: 01/06/23 14:35 SP [id number]) OP-PT Subjective Patient Comments Patient Comments Pt reports does 10 min on recumbent bike at home and uses pillow at back and feels good. He reports hasn't been walking lately due continued back pain but delayed until almost return from mailbox 1/2 block away. PT-OP-F Manual Assessment Start: 12/09/22 17:42 Freq: Status: Active Protocol: Document 12/09/22 15:45 DCW (Rec: 12/10/22 08:47 DCW [id number]) Manual Assessments Soft Tissue Assessment Soft Tissue Mobility Assessment Moderate tone with tenderness to palpation 2/4: Pain with wincinh along right lumbar paraspinals and right superior glutes Joint Mobility Assessment Joint Mobility Assessment No noted mobility issues or hips or lumbar vertebrae PT-OP-K Range of Motion Start: 12/09/22 17:42 Freq: Status: Active Protocol: Document 12/09/22 15:45 DCW (Rec: 12/09/22 17:49 DCW [id number]) Lumbar Spine Range of Motion Lumbar Spine Active Degrees Testing Position Standing Flexion 60 Extension 20 ROM Limitations Soft Tissue Tightness,Muscle Tone PT-OP-L Special Tests Start: 12/09/22 17:42 Freq: Status: Active Protocol: Document 12/09/22 15:45 DCW (Rec: 12/10/22 08:47 DCW [id number]) Special Tests Lumbar Spine Special Tests Vertical Spine Loading Test Results Negative Straight Leg Raise Test Results Mild HS tightness bilaterally Slump Test Results Negative Manual Traction Test Results Negative Compression Test Results Negative A-P Shearing Test Results Negative PT-OP-M Strength Start: 12/09/22 17:42 Freq: Status: Active Protocol: Document 12/09/22 15:45 DCW (Rec: 12/10/22 08:47 DCW [id number]) Trunk Strength Trunk Manual Muscle Testing Core Stabilization Good abdominal strength with verbal bracing cues, pt admits it is not a muscle group he regularly uses when walking/ lifting PT-OP-Q Treatments Start: 12/09/22 17:42 Freq: Status: Active Protocol: Document 01/06/23 13:30 SP (Rec: 01/06/23 14:35 SP [id number]) Gym Equipment Shuttle Recovery Unilateral Squats Details good knee alignment and eccentric control Resistance 50# (two new) Shuttle Recovery Platform Stable Reps/Time x15 Bilateral Squats Details good eccentric control Resistance 87# (three new) Shuttle Recovery Platform Stable Reps/Time x15 Therapeutic Exercises Supine Exercises LTR Supine Exercise Name added HEP Side bilateral Resistance R>L Reps/Minutes 20 SH or 5 breaths Comments good feedback stretch, painfree SKTC Supine Exercise Name added stretching Side bilateral Equipment Used grasp behind knee Reps/Minutes 60 Comments good feedback LS/SI decrease tension TrA Marching Supine Exercise Name progressed: sequencial Marching Side bilateral Reps/Minutes 5 reps leading each LE Comments cued PPT /c TrA contraction improved no LB recruitment Standing Exercises Hip Extension Standing Exercise Name Hip Extension Side bilateral Resistance Green loop at ankles Reps/Minutes x10- stopped R SI area pain w/ kick R and LLE Comments cued TA and only kick for glut fac Self-STM Standing Exercise Name R Lumbar STM /c Tennis ball Pallof Press Standing Exercise Name Pallof Press Side bilateral Resistance Lv 3 press out from chest Reps/Minutes 2x15 Comments cued soft knee, neutral pelvis Other Exercises Resisted Ambulation Other Exercise Name Resisted Side-stepping- added to HEP- gave HO Resistance Green loop at ankles Equipment Used near rail, no UE contact needed Reps/Minutes 15 ft x2 laps Comments cued trail LE clearance, wt shift into toes Manual Therapy Treatment Soft Tissue Mobilization Paraspinals Body Location R lumbar paraspinals, lower lat, upper glute Mobilization Type Strumming,Sustained Pressure Intensity/Depth Moderate Body Position Sidelying Comments ed pillows betwen BLEs, manual and ed review self use ball wall and does perform at home when needed. PT-OP-T Assessment and Plan Start: 12/09/22 17:42 Freq: Status: Active Protocol: Document 01/06/23 13:30 SP (Rec: 01/06/23 14:35 SP [id number]) Physical Therapy Assessment Goals Two Impairment Pt unable to walk >1 block before stopping due to low back pain Custodial Goal (LTG) Pt to report ability to ambulate >one mile 3x/week without increased back pain in order to return to prior level of functional mobilty. LTG Duration 02/08/23 One Impairment Pt does not have an appropriate home exercise program Short Term Goal (STG) Pt to be independent and compliant with an appropriate HEP. STG Duration 01/09/23 Assessment Summary Assessment Pt reported R LB/SI pain during resisted hip ext didn't improve with cues for pelvic alignment correction PPT or TA facilitation. Pt tolerate all other ther ex well. Initiated stretching to BLE and LS supine/sit with good feedback response less back tension. Provide HOs for set up/recall and recommended to continue at home. Physical Therapy Plan Frequency and Duration Frequency of Treatment 2x/Week Plan of Care Start Date 12/09/22 Plan of Care End Date 02/08/23 Therapeutic Interventions Therapeutic Interventions Gait Training,Home Exercise Program,Joint Mobilizations, Manual Therapy,Patient/ Caregiver Education,Self-Care/ Home Management,Soft Tissue Mobilization,Therapeutic Activities,Therapeutic Exercises Modalities Cold Pack/Ice Massage,Electric Stimulation,Hot Packs, Ultrasound Next Visit Focus/Plan Next Note Type Treatment Note Next Visit Plan Assess reponse to added stretches and added resisted side stepping last tx. POC: Core strengthening, STM, lumbar mobilizations
--- NOTE | 2023-01-13 16:32 | PT.OTN ---
Current Diagnoses Low back pain, unspecified (01/13/23) Physical Therapy Treatment Note PT-OP-A Visit Information Start: 12/09/22 17:42 Freq: Status: Active Protocol: Document 01/13/23 15:45 DCW (Rec: 01/13/23 16:32 DCW [id number]) Out-Patient Physical Therapy Visit Information Visit Information Visit Type Treatment Note Visit Start Time 15:45 Visit Stop Time 16:30 Total Visit Minutes 45 Visit Number 6 Number of ELECTRICIAN MACHINE SHOP Visits 0 Evaluation Information Evaluation Date 12/09/22 PT-OP-B Current Condition Start: 12/09/22 17:42 Freq: Status: Active Protocol: Document 12/09/22 15:45 DCW (Rec: 12/09/22 17:49 DCW [id number]) Current Condition History of Current Condition Onset Date A few months Current Complaints Increased low back pain with walking History of Current Condition Pt is a 77 year old male presenting with a few month history of increased right low back pain with walking. Pt notes that he can walk approximately one block before his back starts to bother him . Notes that when it starts, it sends a jolt of pain with every heel strike of his right foot. Nothing else really seems to increase symptoms, and he feels better with rest. 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 Admits he has not been as active recently and feels like his hamstrings are tighter than they used to be. Prior Treatments and Tests Lumbar x-ray: IMPRESSION: Facet arthropathy associated with grade 1 retrolisthesis L2 -3 per Ray Olson M.D. on 10/28/2022 Treatment Goals Patient/Caregiver Goals Return to walking >1 mile without pain PT-OP-C Subjective Start: 12/09/22 17:42 Freq: Status: Active Protocol: Document 01/13/23 15:45 DCW (Rec: 01/13/23 16:32 [facility] [id number]) OP-PT Subjective Patient Comments Patient Comments I have a bad knee, it just showed up Tuesday. 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 PT-OP-F Manual Assessment Start: 12/09/22 17:42 Freq: Status: Active Protocol: Document 12/09/22 15:45 DCW (Rec: 12/10/22 08:47 DCW [id number]) Manual Assessments Soft Tissue Assessment Soft Tissue Mobility Assessment Moderate tone with tenderness to palpation 2/4: Pain with wincinh along right lumbar paraspinals and right superior glutes Joint Mobility Assessment Joint Mobility Assessment No noted mobility issues or hips or lumbar vertebrae PT-OP-K Range of Motion Start: 12/09/22 17:42 Freq: Status: Active Protocol: Document 12/09/22 15:45 DCW (Rec: 12/09/22 17:49 DCW [id number]) Lumbar Spine Range of Motion Lumbar Spine Active Degrees Testing Position Standing Flexion 60 Extension 20 ROM Limitations Soft Tissue Tightness,Muscle Tone PT-OP-L Special Tests Start: 12/09/22 17:42 Freq: Status: Active Protocol: Document 12/09/22 15:45 DCW (Rec: 12/10/22 08:47 DCW [id number]) Special Tests Lumbar Spine Special Tests Vertical Spine Loading Test Results Negative Straight Leg Raise Test Results Mild HS tightness bilaterally Slump Test Results Negative Manual Traction Test Results Negative Compression Test Results Negative A-P Shearing Test Results Negative PT-OP-M Strength Start: 12/09/22 17:42 Freq: Status: Active Protocol: Document 12/09/22 15:45 DCW (Rec: 12/10/22 08:47 DCW [id number]) Trunk Strength Trunk Manual Muscle Testing Core Stabilization Good abdominal strength with verbal bracing cues, pt admits it is not a muscle group he regularly uses when walking/ lifting PT-OP-Q Treatments Start: 12/09/22 17:42 Freq: Status: Active Protocol: Document 01/13/23 15:45 DCW (Rec: 01/13/23 16:32 DCW [id number]) Gym Equipment Shuttle Recovery Unilateral Squats Resistance 50# (one new) Shuttle Recovery Platform Stable Bilateral Squats Resistance 87# (one new) Shuttle Recovery Platform Stable Shuttle Balance Red Details WBOS, Staggered Therapeutic Exercises Supine Exercises Piriformis Stretch Supine Exercise Name Knee to Opposite Shoulder Side bilateral Hamstring Stretch Supine Exercise Name HS stretch Side bilateral SKTC Supine Exercise Name SKtC Side bilateral Standing Exercises Hip Extension Standing Exercise Name Hip Extension Side bilateral Resistance Green loop Other Exercises Resisted Ambulation Other Exercise Name Resisted Side-stepping Resistance Green loop Manual Therapy Treatment Soft Tissue Mobilization Paraspinals Body Location R lumbar paraspinals, lower lat, upper glute Mobilization Type Strumming,Sustained Pressure Intensity/Depth Moderate Body Position Sidelying Manual Traction Lower Extremity Details Long axis B LE traction /c strap Body Position Supine PT-OP-T Assessment and Plan Start: 12/09/22 17:42 Freq: Status: Active Protocol: Document 01/13/23 15:45 DCW (Rec: 01/13/23 16:32 DCW [id number]) Physical Therapy Assessment Impairments Impairments Functional Activities, Functional Mobility,Pain,ROM, Soft Tissue Mobility,Strength, Tone Goals Two Impairment Pt unable to walk >1 block before stopping due to low back pain Skilled Nursing Goal (LTG) Pt to report ability to ambulate >one mile 3x/week without increased back pain in order to return to prior level of functional mobilty. LTG Duration 02/08/23 One Impairment Pt does not have an appropriate home exercise program Short Term Goal (STG) Pt to be independent and compliant with an appropriate HEP. STG Duration 01/09/23 Assessment Summary Assessment Pt walking with less knee restriction following therapy session today, noted some continued discomfort in standing. Overall, hip and low back not bothering him as much on a day-to-day basis. Physical Therapy Plan Frequency and Duration Frequency of Treatment 2x/Week Plan of Care Start Date 12/09/22 Plan of Care End Date 02/08/23 Therapeutic Interventions Therapeutic Interventions Gait Training,Home Exercise Program,Joint Mobilizations, Manual Therapy,Patient/ Caregiver Education,Self-Care/ Home Management,Soft Tissue Mobilization,Therapeutic Activities,Therapeutic Exercises Modalities Cold Pack/Ice Massage,Electric Stimulation,Hot Packs, Ultrasound Next Visit Focus/Plan Next Note Type Treatment Note Next Visit Plan Assess reponse to added stretches and added resisted side stepping last tx. POC: Core strengthening, STM, lumbar mobilizations
--- NOTE | 2023-01-27 14:48 | PT.OTN ---
Current Diagnoses Low back pain, unspecified (01/27/23) Physical Therapy Treatment Note PT-OP-A Visit Information Start: 12/09/22 17:42 Freq: Status: Active Protocol: Document 01/27/23 14:00 DCW (Rec: 01/27/23 14:48 DCW [id number]) Out-Patient Physical Therapy Visit Information Visit Information Visit Type Treatment Note Visit Start Time 14:00 Visit Stop Time 14:45 Total Visit Minutes 45 Visit Number 7 Number of SENIOR GENETIC COUNSELOR Visits 0 Evaluation Information Evaluation Date 12/09/22 PT-OP-B Current Condition Start: 12/09/22 17:42 Freq: Status: Active Protocol: Document 12/09/22 15:45 DCW (Rec: 12/09/22 17:49 DCW [id number]) Current Condition History of Current Condition Onset Date A few months Current Complaints Increased low back pain with walking History of Current Condition Pt is a 77 year old male presenting with a few month history of increased right low back pain with walking. Pt notes that he can walk approximately one block before his back starts to bother him . Notes that when it starts, it sends a jolt of pain with every heel strike of his right foot. Nothing else really seems to increase symptoms, and he feels better with rest. 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 Admits he has not been as active recently and feels like his hamstrings are tighter than they used to be. Prior Treatments and Tests Lumbar x-ray: IMPRESSION: Facet arthropathy associated with grade 1 retrolisthesis L2 -3 per Ray Olson M.D. on 10/28/2022 Treatment Goals Patient/Caregiver Goals Return to walking >1 mile without pain PT-OP-C Subjective Start: 12/09/22 17:42 Freq: Status: Active Protocol: Document 01/27/23 14:00 DCW (Rec: 01/27/23 14:48 DCW [id number]) OP-PT Subjective Patient Comments Patient Comments Pt reports he had covid last week, symptoms were fairly mild and he is now testing negative. PT-OP-F Manual Assessment Start: 12/09/22 17:42 Freq: Status: Active Protocol: Document 12/09/22 15:45 DCW (Rec: 12/10/22 08:47 DCW [id number]) Manual Assessments Soft Tissue Assessment Soft Tissue Mobility Assessment Moderate tone with tenderness to palpation 2/4: Pain with wincinh along right lumbar paraspinals and right superior glutes Joint Mobility Assessment Joint Mobility Assessment No noted mobility issues or hips or lumbar vertebrae PT-OP-K Range of Motion Start: 12/09/22 17:42 Freq: Status: Active Protocol: Document 12/09/22 15:45 DCW (Rec: 12/09/22 17:49 DCW [id number]) Lumbar Spine Range of Motion Lumbar Spine Active Degrees Testing Position Standing Flexion 60 Extension 20 ROM Limitations Soft Tissue Tightness,Muscle Tone PT-OP-L Special Tests Start: 12/09/22 17:42 Freq: Status: Active Protocol: Document 12/09/22 15:45 DCW (Rec: 12/10/22 08:47 DCW [id number]) Special Tests Lumbar Spine Special Tests Vertical Spine Loading Test Results Negative Straight Leg Raise Test Results Mild HS tightness bilaterally Slump Test Results Negative Manual Traction Test Results Negative Compression Test Results Negative A-P Shearing Test Results Negative PT-OP-M Strength Start: 12/09/22 17:42 Freq: Status: Active Protocol: Document 12/09/22 15:45 DCW (Rec: 12/10/22 08:47 DCW [id number]) Trunk Strength Trunk Manual Muscle Testing Core Stabilization Good abdominal strength with verbal bracing cues, pt admits it is not a muscle group he regularly uses when walking/ lifting PT-OP-Q Treatments Start: 12/09/22 17:42 Freq: Status: Active Protocol: Document 01/27/23 14:00 DCW (Rec: 01/27/23 14:48 DCW [id number]) Gym Equipment Shuttle Recovery Unilateral Squats Resistance 50# (two new) Shuttle Recovery Platform Stable Bilateral Squats Resistance 87# (two new) Shuttle Recovery Platform Stable Shuttle Balance Red Details WBOS (EO/EC), Staggered, Lateral Weight Shift Therapeutic Exercises Standing Exercises Hip Extension Standing Exercise Name Hip Extension Side bilateral Resistance Green loop Other Exercises Resisted Ambulation Other Exercise Name Resisted Side-stepping Resistance Green loop Manual Therapy Treatment Soft Tissue Mobilization Paraspinals Body Location R lumbar paraspinals, lower lat, upper glute Mobilization Type Strumming,Sustained Pressure Intensity/Depth Moderate Body Position Sidelying PT-OP-T Assessment and Plan Start: 12/09/22 17:42 Freq: Status: Active Protocol: Document 01/27/23 14:00 DCW (Rec: 01/27/23 14:48 DCW [id number]) Physical Therapy Assessment Impairments Impairments Functional Activities, Functional Mobility,Pain,ROM, Soft Tissue Mobility,Strength, Tone Goals Two Impairment Pt unable to walk >1 block before stopping due to low back pain Reinforcing Iron Worker Helper Goal (LTG) Pt to report ability to ambulate >one mile 3x/week without increased back pain in order to return to prior level of functional mobilty. LTG Duration 02/08/23 One Impairment Pt does not have an appropriate home exercise program Short Term Goal (STG) Pt to be independent and compliant with an appropriate HEP. STG Duration 01/09/23 Assessment Summary Assessment Pt feeling fairly good overall , hopeful he will be able to discharge to independent HEP, however would prefer to try to go for some longer walks prior to discharge. Agreeable to schedule follow-up in 1-2 weeks, and will plan to do some 1+ mile walks before then . Physical Therapy Plan Frequency and Duration Frequency of Treatment 2x/Week Plan of Care Start Date 12/09/22 Plan of Care End Date 02/08/23 Therapeutic Interventions Therapeutic Interventions Gait Training,Home Exercise Program,Joint Mobilizations, Manual Therapy,Patient/ Caregiver Education,Self-Care/ Home Management,Soft Tissue Mobilization,Therapeutic Activities,Therapeutic Exercises Modalities Cold Pack/Ice Massage,Electric Stimulation,Hot Packs, Ultrasound Next Visit Focus/Plan Next Note Type Treatment Note Next Visit Plan Assess reponse to added stretches and added resisted side stepping last tx. POC: Core strengthening, STM, lumbar mobilizations
--- NOTE | 2023-02-09 17:05 | PT.OTN ---
Current Diagnoses Low back pain, unspecified (02/09/23) Physical Therapy Treatment Note PT-OP-A Visit Information Start: 12/09/22 17:42 Freq: Status: Active Protocol: Document 02/09/23 16:30 DCW (Rec: 02/09/23 17:04 DCW [id number]) Out-Patient Physical Therapy Visit Information Visit Information Visit Type Discharge Summary Visit Start Time 16:30 Visit Stop Time 16:46 Total Visit Minutes 16 Visit Number 8 Number of GAS STATION CLERK Visits 0 Evaluation Information Evaluation Date 12/09/22 PT-OP-B Current Condition Start: 12/09/22 17:42 Freq: Status: Active Protocol: Document 12/09/22 15:45 DCW (Rec: 12/09/22 17:49 DCW [id number]) Current Condition History of Current Condition Onset Date A few months Current Complaints Increased low back pain with walking History of Current Condition Pt is a 77 year old male presenting with a few month history of increased right low back pain with walking. Pt notes that he can walk approximately one block before his back starts to bother him . Notes that when it starts, it sends a jolt of pain with every heel strike of his right foot. Nothing else really seems to increase symptoms, and he feels better with rest. 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 Admits he has not been as active recently and feels like his hamstrings are tighter than they used to be. Prior Treatments and Tests Lumbar x-ray: IMPRESSION: Facet arthropathy associated with grade 1 retrolisthesis L2 -3 per Ray Olson M.D. on 10/28/2022 Treatment Goals Patient/Caregiver Goals Return to walking >1 mile without pain PT-OP-C Subjective Start: 12/09/22 17:42 Freq: Status: Active Protocol: Document 02/09/23 16:30 DCW (Rec: 02/09/23 17:04 OKW [id number]) OP-PT Subjective Patient Comments Patient Comments Notes he had a bit of back soreness after walking to his mailbox earlier today, but overall is feeling like he's doing better. Admits I haven' t been as regular with it as I should have. PT-OP-F Manual Assessment Start: 12/09/22 17:42 Freq: Status: Active Protocol: Document 02/09/23 16:30 DCW (Rec: 02/09/23 16:41 DCW [id number]) Manual Assessments Soft Tissue Assessment Soft Tissue Mobility Assessment Mild tone with tenderness to palpation 4: Complaint of pain along right lumbar paraspinals and right superior glutes Joint Mobility Assessment Joint Mobility Assessment No noted mobility issues or hips or lumbar vertebrae PT-OP-K Range of Motion Start: 12/09/22 17:42 Freq: Status: Active Protocol: Document 02/09/23 16:30 DCW (Rec: 02/09/23 16:41 DCW [id number]) Lumbar Spine Range of Motion Lumbar Spine Active Degrees Testing Position Standing Flexion 80 Extension 35 ROM Limitations Soft Tissue Tightness,Muscle Tone PT-OP-L Special Tests Start: 12/09/22 17:42 Freq: Status: Active Protocol: Document 02/09/23 16:30 DCW (Rec: 02/09/23 16:41 DCW [id number]) Special Tests Lumbar Spine Special Tests Vertical Spine Loading Test Results Negative Straight Leg Raise Test Results Mild HS tightness bilaterally Slump Test Results Negative Manual Traction Test Results Negative Compression Test Results Negative A-P Shearing Test Results Negative PT-OP-M Strength Start: 12/09/22 17:42 Freq: Status: Active Protocol: Document 02/09/23 16:30 DCW (Rec: 02/09/23 16:41 DCW [id number]) Trunk Strength Trunk Manual Muscle Testing Core Stabilization Good abdominal strength with verbal bracing cues PT-OP-Q Treatments Start: 12/09/22 17:42 Freq: Status: Active Protocol: Document 01/27/23 14:00 DCW (Rec: 01/27/23 14:48 DCW [id number]) Gym Equipment Shuttle Recovery Unilateral Squats Resistance 50# (two new) Shuttle Recovery Platform Stable Bilateral Squats Resistance 87# (two new) Shuttle Recovery Platform Stable Shuttle Balance Red Details WBOS (EO/EC), Staggered, Lateral Weight Shift Therapeutic Exercises Standing Exercises Hip Extension Standing Exercise Name Hip Extension Side bilateral Resistance Green loop Other Exercises Resisted Ambulation Other Exercise Name Resisted Side-stepping Resistance Green loop Manual Therapy Treatment Soft Tissue Mobilization Paraspinals Body Location R lumbar paraspinals, lower lat, upper glute Mobilization Type Strumming,Sustained Pressure Intensity/Depth Moderate Body Position Sidelying PT-OP-T Assessment and Plan Start: 12/09/22 17:42 Freq: Status: Active Protocol: Document 02/09/23 16:30 DCW (Rec: 02/09/23 17:04 DCW [id number]) Physical Therapy Assessment Impairments Impairments Functional Activities, Functional Mobility,Pain,ROM, Soft Tissue Mobility,Strength, Tone Goals Two Impairment Pt unable to walk >1 block before stopping due to low back pain Fci Goal (LTG) Pt to report ability to ambulate >one mile 3x/week without increased back pain in order to return to prior level of functional mobilty. LTG Duration Met One Impairment Pt does not have an appropriate home exercise program Short Term Goal (STG) Pt to be independent and compliant with an appropriate HEP. STG Duration Met Progress Towards Goals Progress Towards Goals Goals Met Assessment Summary Assessment Pt feels agreeable with discharge at this point. I know what I need to do, I just need to actually do it. Showing fairly good improvement overall, has met all goals, although still occasionally experiencing low back pain. Appropriate for discharge from skilled therapy at this time. Physical Therapy Plan Frequency and Duration Frequency of Treatment 1x/Week Plan of Care Start Date 02/09/23 Plan of Care End Date 02/10/23 Therapeutic Interventions Therapeutic Interventions Gait Training,Home Exercise Program,Joint Mobilizations, Manual Therapy,Patient/ Caregiver Education,Self-Care/ Home Management,Soft Tissue Mobilization,Therapeutic Activities,Therapeutic Exercises Modalities Cold Pack/Ice Massage,Electric Stimulation,Hot Packs, Ultrasound Discharge Physical Therapy Discharge Reasons Goals Met Next Visit Focus/Plan Next Note Type Discharge Summary
--- NOTE | 2023-02-09 17:05 | PT.OPPOC ---
Physical, Occupational & Speech Therapy At [facility] Current Diagnoses Low back pain, unspecified (02/09/23) Visit Care Team Role Provider Type Cisco Villafana MD Family Provider Physician Primary Care Provider Specialty: Family Practice Address: [address] [place] [address] [place], [address] Email: [email or web address] Brandon Valdes MD Attending Provider Physician Referring Provider Specialty: Anesthesiology Interventional Radiology Pain Management Address: [facility] [place], [address] Email: [email or web address] Plan Of Care PT-OP-T Assessment and Plan Start: 12/09/22 17:42 Freq: Status: Active Protocol: Document 02/09/23 16:30 DCW (Rec: 02/09/23 17:04 DCW [id number]) Physical Therapy Assessment Impairments Impairments Functional Activities, Functional Mobility,Pain,ROM, Soft Tissue Mobility,Strength, Tone Goals Two Impairment Pt unable to walk >1 block before stopping due to low back pain Care Home Goal (LTG) Pt to report ability to ambulate >one mile 3x/week without increased back pain in order to return to prior level of functional mobilty. LTG Duration Met One Impairment Pt does not have an appropriate home exercise program Short Term Goal (STG) Pt to be independent and compliant with an appropriate HEP. STG Duration Met Progress Towards Goals Progress Towards Goals Goals Met Assessment Summary Assessment Pt feels agreeable with discharge at this point. I know what I need to do, I just need to actually do it. Showing fairly good improvement overall, has met all goals, although still occasionally experiencing low back pain. Appropriate for discharge from skilled therapy at this time. Physical Therapy Plan Frequency and Duration Frequency of Treatment 1x/Week Plan of Care Start Date 02/09/23 Plan of Care End Date 02/10/23 Therapeutic Interventions Therapeutic Interventions Gait Training,Home Exercise Program,Joint Mobilizations, Manual Therapy,Patient/ Caregiver Education,Self-Care/ Home Management,Soft Tissue Mobilization,Therapeutic Activities,Therapeutic Exercises Modalities Cold Pack/Ice Massage,Electric Stimulation,Hot Packs, Ultrasound Discharge Physical Therapy Discharge Reasons Goals Met Next Visit Focus/Plan Next Note Type Discharge Summary Plan of Care Dates Plan of Care Start Date 02/09/23 Plan of Care End Date 02/10/23 Electronically Signed by: Gee Sanchez, PT 02/09/23 4215 If you are in agreement with this Plan of Care, please return a signed and dated copy. I have reviewed this Plan of Care and certify that the skilled therapy services above are required to meet the patient?s needs. Physician Signature Date Printed Name and Credentials Clinical Instructor Signature Printed Name and Credentials
== END 2023-02-14 14:07 | disposition home or self-care (01) ==
LOC: PHYS 16:30
PROVIDERS: Family Provider Family Medicine; PCP Family Medicine; Referring Provider Anesthesiology; Visit Provider Anesthesiology
DX: M54.50 Low back pain, unspecified (principal)
CPT/HCPCS: 97110; 97140; 97161

== ENCOUNTER → 2023-03-16 10:29 | Outpatient (CLI) | payer MEDICARE, SELFPAY ==
--- NOTE | 2023-03-16 10:30 | DI.RAD.S_ITS ---
PROCEDURE: XR HIP W PEL IF DONE RT 2V INDICATIONS: RIGHT HIP PAIN TECHNIQUE: AP pelvis with lateral view(s) of the right hip(s). COMPARISON: [facility], , XR HIP W PEL IF DONE RT 2V, 08/09/2022, 11:12. FINDINGS: Bones: No fractures or dislocations. Pelvic ring appears intact. No suspicious bony lesions. Moderate bilateral hip degenerative change. Soft tissues: The visualized bowel gas pattern is normal. No suspicious soft tissue calcifications. IMPRESSION: Moderate bilateral hip degenerative change. No acute bony abnormality. Comment: If suspect occult right hip fracture, consider CT hip Dictated by: Sonu Barone M.D. on 03/16/2023 at 11:09 Approved by: Sonu Barone M.D. on 03/16/2023 at 11:12
== END ==
PROVIDERS: Family Provider Family Medicine; PCP Family Medicine; Referring Provider Anesthesiology; Visit Provider Anesthesiology
DX: M25.551 Pain in right hip (principal)
CPT/HCPCS: 73502

== ENCOUNTER → 2023-05-02 11:14 | Outpatient (CLI) | payer MEDICARE, SELFPAY ==
--- NOTE | 2023-05-02 11:16 | DI.RAD.S_ITS ---
PROCEDURE: XR FOOT LT MIN 3V INDICATIONS: Foot pain TECHNIQUE: 3 views of the foot were acquired. COMPARISON: None. FINDINGS: Bones: No fractures or dislocations. Mild interphalangeal joint degeneration. No suspicious bony lesions. Plantar calcaneal spurring. Soft tissues: No tibiotalar joint effusion. Achilles tendon appears normal. IMPRESSION: No acute osseous abnormalities. Mild interphalangeal joint degeneration. Plantar calcaneal enthesophyte. Dictated by: True Winkler M.D. on 05/02/2023 at 15:21 Approved by: True Winkler M.D. on 05/02/2023 at 15:22
== END ==
PROVIDERS: Family Provider Family Medicine; PCP Family Medicine; Referring Provider Anesthesiology; Visit Provider Anesthesiology
DX: M19.072 Primary osteoarthritis, left ankle and foot (principal); M77.32 Calcaneal spur, left foot; M17.11 Unilateral primary osteoarthritis, right knee; M25.761 Osteophyte, right knee; G58.8 Other specified mononeuropathies; M79.672 Pain in left foot; M25.561 Pain in right knee; G89.29 Other chronic pain
CPT/HCPCS: 73630; 99213

== ENCOUNTER 2023-05-11 13:51 | Outpatient (CLI) | payer MEDICARE, SELFPAY ==
[2023-05-11 14:15] VITALS: BP 180/86; PULSE 71; RESP 18; TEMP 36.3; O2SAT 100
--- NOTE | 2023-05-11 14:30 | DI.RAD.S_ITS ---
PROCEDURE: PAIN CLUNEAL NRV BLOCK RT INDICATIONS: CLUNEAL NEURALGIA COMPARISON: None. FINDINGS: Fluoroscopic spot filming was performed to verify placement of spinal needles along the right iliac crest, as labeled on the films. Appropriate locations of the needle tips was confirmed by injection of iodinated contrast. IMPRESSION: Intraprocedural examination demonstrates appropriate needle position. Approved by: Drew Mcneil M.D. on 05/11/2023 at 16:40
[2023-05-11] MEDS: MIDAZOLAM 2 MG/2 ML VIAL 1 MG IV (14:40)
[2023-05-11] MEDS: iopamidoL 15 ML VIAL 3 ML INJ (14:44)
[2023-05-11] MEDS: BUPIVACAINE 0.5% (PF) 10 ML VIAL INJ (14:44)
[2023-05-11 14:45] VITALS: BP 161/78; PULSE 90; RESP 22; O2SAT 99
[2023-05-11 14:50] VITALS: BP 161/86; PULSE 85; RESP 20; O2SAT 100
[2023-05-11 15:00] VITALS: BP 167/79; PULSE 86; RESP 16; O2SAT 98
[2023-05-11 15:05] VITALS: BP 166/85; PULSE 81; RESP 20; O2SAT 95
[2023-05-11 15:10] VITALS: BP 159/96; PULSE 80; RESP 18; O2SAT 97
--- NOTE | 2023-05-11 15:24 | P.PCN_ITS ---
Date/Time/Diagnoses Date of procedure: 05/11/23 Time of procedure: 14:30 Procedure Notes Physician: Brandon Valdes Total Fluoroscopy time (seconds): 10 Total sedation minutes: 13 Procedure in detail & Post-procedure care: Right Cluneal Nerve Injection Indications: Judah is presenting for treatment of cluneal neuralgia with low back and buttock pain. Preoperative diagnosis: Right cluneal neuralgia Postoperative diagnosis: Same Focused Examination: Ax3 Mood and affect are normal Vital Signs: VSS ASA: 2 Consent: Following review of allergies and potential side effects/complications, including, but not necessarily limited to, infection, allergic reaction, local tissue breakdown, stroke, temporary or permanent nerve injury, paralysis, and possible , the patient indicated that they understood and agreed to proceed.? An informed consent document was signed by the patient, witnessed by a nurse and placed in the patient's chart.? Additionally, other treatment options including medications and physical therapy were reviewed with the patient. All questions were answered. Site was then marked. Anesthesia: After review of previous anesthetic history and IV conscious sedation, the patient was deemed safe to proceed with today's procedure with IV conscious sedation. IV sedation was accomplished with midazolam 1 mg administered by the RN after order by Dr. Valdes. Sedation was titrated to rosina ent comfort during the course of the procedure. Patient remained responsive to all verbal commands. Position: Prone Monitoring: NIBP, Pulse oximetry, 3 lead EKG Needle used: 25 gauge, 3.5 inch spinal needle x3 Contrast: Isovue 300-M 3mL Injectate: Depomedrol 40mg with 8 mL 0.5% Bupivacaine - 3 mL per site Technique: The skin was prepped with chloraprep and then draped in a sterile fashion. Time out was performed as per protocol. Oxygen applied via NC. Midline of the spine was identified using fluoroscopy. The skin was measured 8 cm from midline and sterile kelsey placed on the skin delineating the superior aspect of the iliac crest on the right. Two hazel were subsequently made 2 cm medial and 2 cm lateral for a total of 3 target sites. Skin and subcutaneous structures of the needle entry sites were then infiltrated with 5 mL of lidocaine 1%. Under AP and contralateral oblique control, the needle was guided to the superior aspect of the iliac crest in the 3 locations. Contrast was injected and the spread was consistent with appropriate needle location. There was no evidence for intravascular uptake. After negative aspiration, the above-mentioned injectate was then slowly administered and the needles withdrawn. The patient expressed no unusual discomfort or paresthesias during needle positioning or injection. Band- Aids applied to injection sites. EBL: less than 1 ml Complications: None Post Procedure: Patient was taken to the recovery and monitored. The patient was provided a Pain Log to continue to record the patient's response to the target- specific procedure prior to the patient's follow-up visit with the referring physician. Patient was stable upon discharge. Detailed post procedure instructions were provided. Patient was asked to call in the event of worsening pain, fever, weakness, numbness or bladder/bowel incontinence.
== END 2023-05-11 15:15 | disposition home or self-care (01) ==
LOC: RAD 13:52
PROVIDERS: Family Provider Family Medicine; PCP Family Medicine; Referring Provider Anesthesiology; Visit Provider Anesthesiology
DX: G58.8 Other specified mononeuropathies (principal)
CPT/HCPCS: 64450; 99152; J1030; J2250; J2919

== ENCOUNTER → 2023-06-04 14:37 | Outpatient (CLI) | payer MEDICARE, SELFPAY ==
--- NOTE | 2023-06-04 14:38 | DI.MRI.S_ITS ---
PROCEDURE: MR ANKLE LT WO CON INDICATIONS: Other specified joint disorders, left ankle TECHNIQUE: Noncontrast sagittal T1 spin echo and T2 fast spin echo with fat saturation, axial proton density fast spin echo and T2 fast spin echo with fat saturation, coronal T1 spin echo and T2 fast spin echo with fat saturation through the ankle/hindfoot. COMPARISON: None. FINDINGS: Image quality: Excellent. Bones and joints: [id number] midfoot and hindfoot joint osteoarthritic changes are seen with joint space narrowing, subchondral sclerosis and subcortical cystic changes. Finding is more notably involving articulation between medial malleolus and medial periphery of talus. No fracture or dislocation. Tiny 2 mm osteochondral injury involving lateral weight-bearing portion of talar dome is seen. Small tibiotalar joint effusion is seen, no gross loose bodies.. Medial structures: The posterior tibialis tendon is thickened with intrasubstance T2 hyperintense signal at the level of distal talus and talonavicular joint. The flexor digitorum longus, and flexor hallucis longus tendons are intact. The posterior tibial neurovascular bundle appears normal within the tarsal tunnel, without extrinsic mass effect. The deltoid ligament and spring ligament are thickened with intrasubstance T2 hyperintense signal. Lateral structures: The anterior talofibular, calcaneofibular, and posterior talofibular ligaments appear thickened with intrasubstance T2 hyperintense signal. More superiorly, the anterior and posterior tibiofibular ligaments also appears thickened with intrasubstance T2 hyperintense signal. The tibiofibular syndesmosis is normal in width at 2 mm or less. Mildly thickened peroneus longus and brevis tendons at the level of lateral malleolus tip is seen. The sinus tarsi demonstrates normal fatty signal, without edema, fibrosis, or cyst formation. Visualized sinus tarsi components (cervical ligament, interosseous talocalcaneal ligament, roots of the inferior extensor retinaculum) appear normal. Anterior structures: There is significant thickening of the tibialis anterior tendon at the level of distal tibia and tibiotalar joint. The extensor hallucis longus, and extensor digitorum longus tendons appear intact. The dorsal talonavicular ligament appears intact. Posterior and plantar structures: Achilles tendon is intact. Medial band of plantar fascia is mildly thickened at its plantar calcaneal insertion. No abductor digiti quinti muscle atrophy to suggest G[place]am neuropathy. IMPRESSION: 1. 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 No acute fracture or dislocation. Tiny 2 mm osteochondral injury involving lateral weight-bearing portion of talar dome. Small joint effusion, no gross loose bodies. 2. Mild distal posterior tibialis tendinosis at the level of distal talus and talonavicular joint. Mild to moderate peroneus longus and brevis tendon at the level of lateral malleolus tip. Moderate tendinosis involving tibialis anterior tendon at the level of distal tibia and tibiotalar joint. No full-thickness ankle tendon rupture. 3. Low-grade intrasubstance partial-thickness tear involving medial and lateral ankle ligaments more notably involving anterior talofibular ligament. No full-thickness ankle ligament rupture. 4. Mildly thickened medial band of plantar fascia concerning for low-grade plantar fasciitis. Dictated by: Art Pruitt M.D. on 06/06/2023 at 10:44 Approved by: Art Pruitt M.D. on 06/06/2023 at 13:01
== END ==
PROVIDERS: Family Provider Family Medicine; PCP Family Medicine; Referring Provider Orthopaedic Surgery Foot and Ankle Surgery; Visit Provider Orthopaedic Surgery Foot and Ankle Surgery
DX: M25.872 Other specified joint disorders, left ankle and foot (principal); M19.072 Primary osteoarthritis, left ankle and foot; S93.492A Sprain of other ligament of left ankle, initial encounter; M25.472 Effusion, left ankle
CPT/HCPCS: 73721

== ENCOUNTER 2023-06-15 13:59 | Outpatient (CLI) | payer MEDICARE, SELFPAY ==
[2023-06-15] VITALS (8 sets, daily range): BP systolic 143–193; BP diastolic 70–102; PULSE 89–95; RESP 16–24; TEMP 36.5; O2SAT 98–100
--- NOTE | 2023-06-15 14:30 | DI.RAD.S_ITS ---
PROCEDURE: PAIN CLUNEAL NRV BLOCK RT INDICATIONS: CLUNEAL NEUROPATHY COMPARISON: [facility], , PAIN CLUNEAL NRV BLOCK RT, 05/11/2023, 15:44. FINDINGS: Fluoroscopic spot filming was performed to verify placement of spinal needles at the right iliac crest region, as labeled on the films. Appropriate locations of the needle tips were confirmed by injection of iodinated contrast. IMPRESSION: Intraprocedural examination demonstrates appropriate needle positioning. Approved by: Drew Mcneil M.D. on 06/15/2023 at 20:34
[2023-06-15] MEDS: MIDAZOLAM 2 MG/2 ML VIAL 1 MG IV (14:34)
[2023-06-15] MEDS: BUPIVACAINE 0.5% (PF) 10 ML VIAL 2 ML INJ (14:41)
[2023-06-15] MEDS: iopamidoL 15 ML VIAL 3 ML INJ (14:43)
[2023-06-15] MEDS: DEXAMETHASONE 10 MG/ML VIAL 20 MG INJ (14:43)
--- NOTE | 2023-06-15 14:55 | P.PCN_ITS ---
Date/Time/Diagnoses Date of procedure: 06/15/23 Time of procedure: 14:30 Procedure Notes Physician: Brandon Valdes Total Fluoroscopy time (seconds): 13 Total sedation minutes: 14 Procedure in detail & Post-procedure care: Right Cluneal Nerve Injection Indications: Judah is presenting for treatment of cluneal neuralgia with low back and buttock pain. Preoperative diagnosis: Cluneal neuralgia Postoperative diagnosis: Same Focused Examination: Ax3 Mood and affect are normal Vital Signs: VSS ASA: 2 Consent: Following review of allergies and potential side effects/complications, including, but not necessarily limited to, infection, allergic reaction, local tissue breakdown, stroke, temporary or permanent nerve injury, paralysis, and possible , the patient indicated that they understood and agreed to proceed.? An informed consent document was signed by the patient, witnessed by a nurse and placed in the patient's chart.? Additionally, other treatment options including medications and physical therapy were reviewed with the patient. All questions were answered. Site was then marked. Anesthesia: After review of previous anesthetic history and IV conscious sedation, the patient was deemed safe to proceed with today's procedure with IV conscious sedation. IV sedation was accomplished with midazolam 1 mg administered by the RN after order by Dr. Valdes. Sedation was titrated to patient comfort during the course of the procedure. Patient remained responsive to all verbal commands. Position: Prone Monitoring: NIBP, Pulse oximetry, 3 lead EKG Needle used: 25 gauge, 3.5 inch spinal needle x3 Contrast: Isovue 300-M 3mL Injectate: Dexamethasone 15 mg with 7.5 mL 0.5% Bupivacaine - 3 mL per site Technique: The skin was prepped with chloraprep and then draped in a sterile fashion. Time out was performed as per protocol. Oxygen applied via NC. Midline of the spine was identified using fluoroscopy. The skin was measured 8 cm from midline and sterile kelsey placed on the skin delineating the superior aspect of the iliac crest on the right. Two hazel were subsequently made 2 cm medial and 2 cm lateral for a total of 3 target sites. Skin and subcutaneous structures of the needle entry sites were then infiltrated with 5 mL of lidocaine 1%. Under AP and contralateral oblique control, the needle was guided to the superior aspect of the iliac crest in the 3 locations. Contrast was injected and the spread was consistent with appropriate needle location. There was no evidence for intravascular uptake. After negative aspiration, the above-mentioned injectate was then slowly administered and the needles withdrawn. The patient expressed no unusual discomfort or paresthesias during needle positioning or injection. Band- Aids applied to injection sites. EBL: less than 1 ml Complications: None Post Procedure: Patient was taken to the recovery and monitored. The patient was provided a Pain Log to continue to record the patient's response to the target- specific procedure prior to the patient's follow-up visit with the referring physician. Patient was stable upon discharge. Detailed post procedure instructions were provided. Patient was asked to call in the event of worsening pain, fever, weakness, numbness or bladder/bowel incontinence.
== END 2023-06-15 15:13 | disposition home or self-care (01) ==
PROVIDERS: Family Provider Family Medicine; PCP Family Medicine; Referring Provider Anesthesiology; Visit Provider Anesthesiology
DX: G58.8 Other specified mononeuropathies (principal)
CPT/HCPCS: 64450; 99152; J1100; J2250

== ENCOUNTER 2023-10-12 09:26 | Outpatient (CLI) | payer MEDICARE, SELFPAY ==
[2023-10-12] VITALS (8 sets, daily range): BP systolic 127–170; BP diastolic 62–85; PULSE 68–84; RESP 16–24; TEMP 36.3; O2SAT 96–100
[2023-10-12] MEDS: MIDAZOLAM 2 MG/2 ML VIAL 1 MG IV (09:53)
[2023-10-12] MEDS: BUPIVACAINE 0.25% (PF) VIAL 10 ML INJ (09:56)
[2023-10-12] MEDS: methylPREDNISolone acet DEPO 40 MG/ML VIAL INJ (09:57)
[2023-10-12] MEDS: iopamidoL 15 ML VIAL 3 ML INJ (09:57)
--- NOTE | 2023-10-12 10:00 | DI.RAD.S_ITS ---
PROCEDURE: PAIN CLUNEAL NRV BLOCK RT INDICATIONS: CLUNEAL NEUROPATHY COMPARISON: [facility], XA, PAIN CLUNEAL NRV BLOCK RT, 06/15/2023, 15:40. [facility], XA, PAIN CLUNEAL NRV BLOCK RT, 05/11/2023, 15:44. FINDINGS: Fluoroscopic spot filming was performed to verify placement of spinal needles at the level of the right iliac crest, as labeled on the films. Appropriate location(s) of the needle tip(s) was confirmed by injection of iodinated contrast. IMPRESSION: Fluoroscopically guided cluneal nerve injection. Dictated by: Lu Pride M.D. on 10/12/2023 at 11:34 Approved by: Lu Pride M.D. on 10/12/2023 at 11:48
--- NOTE | 2023-10-12 10:09 | P.PCN_ITS ---
Date/Time/Diagnoses Date of procedure: 10/12/23 Time of procedure: 10:00 Procedure Notes Physician: Brandon Valdes Total Fluoroscopy time (seconds): 10 Total sedation minutes: 10 Procedure in detail & Post-procedure care: Right Cluneal Nerve Injection Indications: Judah is presenting for treatment of cluneal neuralgia with low back and buttock pain. Preoperative diagnosis: Right cluneal neuralgia Postoperative diagnosis: Same Focused Examination: Ax3 Mood and affect are normal Vital Signs: VSS ASA: 2 Consent: Following review of allergies and potential side effects/complications, including, but not necessarily limited to, infection, allergic reaction, local tissue breakdown, stroke, temporary or permanent nerve injury, paralysis, and possible , the patient indicated that they understood and agreed to proce ed.? An informed consent document was signed by the patient, witnessed by a nurse and placed in the patient's chart.? Additionally, other treatment options including medications and physical therapy were reviewed with the patient. All questions were answered. Site was then marked. Anesthesia: After review of previous anesthetic history and IV conscious sedation, the patient was deemed safe to proceed with today's procedure with IV conscious sedation. IV sedation was accomplished with midazolam 1 mg administered by the RN after order by Dr. Valdes. Sedation was titrated to patient comfort during the course of the procedure. Patient remained responsive to all verbal commands. Position: Prone Monitoring: NIBP, Pulse oximetry, 3 lead EKG Needle used: 25 gauge, 3.5 inch spinal needle x3 Contrast: Isovue 300-M 3mL Injectate: Depomedrol 40mg with 8 mL 0.25% Bupivacaine - 3 mL per site Technique: The skin was prepped with chloraprep and then draped in a sterile fashion. Time out was performed as per protocol. Oxygen applied via NC. Midline of the spine was identified using fluoroscopy. The skin was measured 8 cm from midline and sterile kelsey placed on the skin delineating the superior aspect of the iliac crest on the right. Two hazel were subsequently made 2 cm medial and 2 cm lateral for a total of 3 target sites. Skin and subcutaneous structures of the needle entry sites were then infiltrated with 5 mL of lidocaine 1%. Under AP and contralateral oblique control, the needle was guided to the superior aspect of the iliac crest in the 3 locations. Contrast was injected and the spread was consistent with appropriate needle location. There was no evidence for intravascular uptake. After negative aspiration, the above-mentioned injectate was then slowly administered and the needles withdrawn. The patient expressed no unusual discomfort or paresthesias during needle positioning or injection. Band- Aids applied to injection sites. EBL: less than 1 ml Complications: None Post Procedure: Patient was taken to the recovery and monitored. The patient was provided a Pain Log to continue to record the patient's response to the target- specific procedure prior to the patient's follow-up visit with the referring physician. Patient was stable upon discharge. Detailed post procedure instructions were provided. Patient was asked to call in the event of worsening pain, fever, weakness, numbness or bladder/bowel incontinence.
== END 2023-10-12 10:25 | disposition home or self-care (01) ==
LOC: RAD 09:27
PROVIDERS: Family Provider Family Medicine; PCP Family Medicine; Referring Provider Anesthesiology; Visit Provider Anesthesiology
DX: G58.8 Other specified mononeuropathies (principal)
CPT/HCPCS: 64450; 99152; J1010; J2250; J3490

== ENCOUNTER 2023-11-30 11:37 | Day surgery (SDC) | payer MEDICARE, SELFPAY ==
[2023-11-28 10:33] VITALS: BMI 23.1
--- NOTE | 2023-11-29 08:44 | PM.HP.1 ---
History of Present Illness History of Present Illness Chief complaint: [facility] Medical History (Updated 11/10/23 @ 15:45 by Phuc Ashford MD) Nerve damage Acute arthritis Emphysema, unspecified Prostate cancer Lumbar spondylosis Cluneal neuropathy Osteophyte, right knee Left foot pain Osteoarthritis of right knee Right knee pain Right hip pain Right buttock pain Low back pain Right elbow pain COPD (chronic obstructive pulmonary disease) Surgical History (Updated 11/28/23 @ 10:38 by Sandra Moss RN) Hx of prostatectomy Family History Father Prostate CA Mother Lung cancer Social History marital status: details: Pt. works part-time at [employer]. household members: spouse lives independently: Yes occupational status: employed Smoking Status: Current every day smoker alcohol intake: former substance use type: does not use Meds Home Medications and Allergies Home Medications Medication Instructions Recorded Confirmed Type aspirin 81 mg chewable tablet 81 mg PO QPM 01/03/19 11/10/23 History cholecalciferol (vitamin D3) 25 1,000 unit PO QPM 01/03/19 11/10/23 History mcg (1,000 unit) capsule (Vitamin D3) cyanocobalamin (vitamin B-12) 1,000 mcg PO QPM 01/03/19 11/10/23 History 1,000 mcg tablet (Vitamin B-12) pravastatin 20 mg tablet 20 mg PO BEDTIME 01/03/19 11/10/23 History tiotropium bromide 18 mcg capsule 1 cap inhalation DAILY 12/20/22 11/10/23 History with inhalation device (Spiriva with HandiHaler) Allergies Allergy/AdvReac Type Severity Reaction Status Date / Time No Known Drug Allergies Allergy Verified 11/10/23 15:03 Assessment & Plan Time-Based Coding :: [TOTAL MINUTES] spent with patient and on the chart (including review of chart, obtaining history, exam, reviewing outside data, placing orders, documenting exam and treatment plan, and counseling patient) on [DATE].
--- NOTE | 2023-11-29 08:44 | PM.PREOP ---
Pre-operative Note Interval Note History & Physical reviewed/Exam performed by Physician: Yes Changes to H&P: No
[2023-11-30 12:26] VITALS: BP 155/87; PULSE 72; RESP 18; TEMP 36.6; O2SAT 98; BMI 23.1
[2023-11-30] MEDS: LACTATED RINGERS 1,000 ML 42 ML IV (12:54)
[2023-11-30] MEDS: CEFAZOLIN 2 GM/100 ML PREMIX 100 ML IV (13:45)
--- NOTE | 2023-11-30 14:00 | SUR.OPER ---
Supine on padded OR bed, head on pillow, arms secured on padded arm boards at <90 degrees abduction, legs uncrossed, safety belt at thigh, tape over blanket over lower legs.
[2023-11-30] MEDS: BUPIVACAINE 0.25% (PF) VIAL 30 ML INJ (14:08)
[2023-11-30 14:46] VITALS: BP 142/82; PULSE 73; RESP 12; TEMP 36.5; O2SAT 97
[2023-11-30 14:50] VITALS: BP 137/80; PULSE 69; RESP 17; TEMP 36.5; O2SAT 97
--- NOTE | 2023-11-30 14:52 | PM.OP.1 ---
Operative Date/Time/Diagnoses Date of procedure: 11/30/23 Time of procedure: 14:52 Pre-op diagnosis: Left inguinal hernia Post-op diagnosis: same Procedure & Clinicians Procedure: Open left inguinal hernia repair Same procedure as scheduled: Yes Indications: Symptomatic reducible left inguinal hernia Surgeon: Phuc Ashford Residential Property Manager: Andrew Desai Anesthesia Type: General Operative Notes Findings: Moderate-sized indirect defect. No floor defect Specimen(s): none sent Estimated Blood Loss (mL): 20 Procedure in detail: The patient was placed supine on the table and bilateral lower extremity compression devices were applied. Anesthesia was induced they were intubated with an LMA and received Ancef. A time-out was performed. They were prepped and draped in sterile fashion. The left external inguinal ring and the anterior superior iliac crest were identified and marked. 1 finger breath above the inguinal ligament the skin was infiltrated with 0.25% bupivacaine. The skin incision was made, the subcutaneous tissues were divided with electrocautery exposing the external oblique aponeurosis which was then opened along the direction of its fibers. Using blunt dissection the internal oblique aporneurosis was from the external oblique upper leaflet. The cord was carefully dissected away from the inguinal canal adjacent to the pubic tubercle. The cord including the vas deferens, testicular bloody supply, ilioguinal and genital nerve were encircled with a Prabhu drain. No direct floor defect was identified. The cremasteric fibers surrounding the cord were divided adjacent to the internal ring. The vas deferens and the testicular vessels were preserved and protected. The cord contents were carefully explored. There was a moderate-sized indirect hernia on the anterior medial aspect of the cord which was skeletonized away from the vas deferens and testicular blood supply. The indirect hernia was skeletonized back to the internal ring and reduced spontaneously into the abdomen. A 7x 15 cm lightweight Bard Pro Loop hernia mesh was anchored to the insertion of the rectus muscle at the pubic tubercle such that there was approximately 2 cm of tubercle overlap with Ethibond. The inferior edge of the mesh was secured to the shelving edge of the inguinal ligament using Ethibond. Interrupted 3 0 Vicryl suture was used to anchor the superior aspect of the mesh to the conjoined tendon in several places. The tails were then reapproximated loosely around the spermatic cord. The tails of the mesh were then tucked under the external oblique aponeurosis. The repair was checked for hemostasis. The wound was irrigated with sterile saline. The external oblique aponeurosis was reapproximated in a running fashion using 3 0 Vicryl. The subcutaneous tissues were reapproximated with 3 0 Vicryl skin closed with 4 0 Monocryl followed by the application of Dermabond. At the end of the operation I ensured that both testicles were within the scrotum. The sponge instrument count at the end operation was correct. The patient emerged from anesthesia was extubated and transferred to the postoperative care unit in stable condition. A total of 30 ml of of 0.25% bupivicaine was used to infiltrate the skin. Complications: none Post-operative Condition: stable Disposition: same day surgery
[2023-11-30 14:55] VITALS: BP 143/78; PULSE 63; RESP 18; TEMP 36.4; O2SAT 97
[2023-11-30 15:02] VITALS: BP 143/82; PULSE 70; RESP 20; TEMP 36.4; O2SAT 96
== END 2023-11-30 15:20 | disposition home or self-care (01) ==
PROVIDERS: Family Provider Family Medicine; PCP Family Medicine; Referring Provider Surgery; Visit Provider Surgery
PROC: (CPT 49505; principal; 2023-11-30 14:15)
DX: K40.90 Unilateral inguinal hernia, without obstruction or gangrene, not specified as recurrent (principal)
CPT/HCPCS: 49505; J0330; J0690; J1100; J2405; J2704; J3010

== ENCOUNTER → 2024-01-11 13:09 | Outpatient (CLI) | payer MEDICARE, SELFPAY ==
--- NOTE | 2024-01-11 | DI.RAD.S_ITS ---
PROCEDURE: XR KNEE RT 1TO2V INDICATIONS: chronic pain of right knee TECHNIQUE: 3 views of the knee were acquired. COMPARISON: [facility], CR, XR KNEE RT 3V, 01/14/2023, 14:53. FINDINGS: Bones: Patella Leeanne noted. Small amount of subperiosteal new bone projects from the medial proximal tibia. This is likely posttraumatic. It is unchanged from exam of 1 year prior 01/14/2023 Joints: Severe patellofemoral and medial tibial femoral degenerative change appreciated. Soft tissues: Normal IMPRESSION: Severe patellofemoral medial tibial femoral degeneration . Dictated by: Kaiser Richardson M.D. on 01/12/2024 at 7:48 Approved by: Kaiser Richardson M.D. on 01/12/2024 at 7:50
--- NOTE | 2024-01-11 | DI.MRI.S_ITS ---
PROCEDURE: MR LUMBAR SPINE WO CON INDICATIONS: CHRONIC BILATERAL LOW BACK PAIN TECHNIQUE: Noncontrast sagittal T1 spin echo and T2 fast echo, sagittal STIR, and T2 fast spin echo through the lumbar spine. In cases with scoliosis, additional coronal T2 fast spin echo may be performed. COMPARISON: [facility], CR, XR LUMBAR SPINE MIN 4V, 10/28/2022, 15:54. FINDINGS: Image quality: Diagnostic Alignment and Curvature: Stable bony alignment with grade 1 anterolisthesis of L4 on L5 and minimal retrolisthesis of L5 on S1. Bone Marrow: Marrow is of normal overall signal. No acute vertebral body compression fractures. Spinal Cord: Conus medullaris terminates at the L1 level. Visualized cord demonstrates normal signal and size. Paraspinous Soft Tissues: No paravertebral masses. T12-L1: Degenerative endplate changes with endplate osteophyte formation. Mild bilateral facet arthropathy. No significant neuroforaminal or spinal canal stenosis. L1-L2: Degenerative endplate changes. Endplate osteophyte formation. Mild bilateral facet arthropathy. Symmetric disc bulge. No significant spinal canal stenosis. Mild bilateral neuroforaminal stenosis. L2-L3: Degenerative endplate changes and endplate osteophyte formation. Bilateral facet arthropathy. Prominent symmetric disc bulge. Bilateral facet arthropathy. Mild spinal canal stenosis. Effacement of the bilateral subarticular zones. Moderate bilateral neuroforaminal stenosis. L3-L4: Degenerative endplate changes. Endplate osteophyte formation. Severe bilateral facet arthropathy and ligamentum flavum thickening. Prominent disc bulge. Combination of findings result in mild spinal canal stenosis and moderate-severe bilateral neuroforaminal stenosis. L4-L5: Degenerative endplate changes. Grade 1 anterolisthesis of L4 on L5. Severe bilateral facet arthropathy. Ligamentum flavum hypertrophy. Prominent symmetric disc bulge. There is severe spinal canal stenosis and severe bilateral neuroforaminal stenosis. L5-S1: Moderate bilateral facet arthropathy. Symmetric disc bulge. Degenerative endplate changes and endplate osteophytes. Mild spinal canal stenosis. Moderate bilateral neuroforaminal stenosis. IMPRESSION: Lumbar spine without acute abnormalities. Moderate-severe multilevel, multifactorial spondylosis as detailed above by vertebral body level. Findings are most severe at L4-5 where combination of prominent symmetric disc bulge, severe bilateral facet arthropathy, and ligamentum flavum hypertrophy results in severe spinal canal stenosis and severe bilateral neuroforaminal stenosis. Dictated by: Mejia Bowers M.D. on 01/11/2024 at 17:56 Approved by: Mejia Bowers M.D. on 01/11/2024 at 18:06
--- NOTE | 2024-01-11 | DI.CT.S_ITS ---
PROCEDURE: CT CHEST W CON INDICATIONS: CHRONIC COUGH TECHNIQUE: After the administration of intravenous contrast, 5 mm thick sections acquired from the pulmonary apices to the posterior costophrenic angles. 1 mm axial lung, 5 mm thick coronal and sagittal reformats and 7 mm axial MIP were acquired. For radiation dose reduction, the following was used: automated exposure control, adjustment of mA and/or kV according to patient size. COMPARISON: [facility], CT, CT CHEST WO [facility], 11/09/2018, 11:00. FINDINGS: Image quality: Diagnostic. Lungs and Pleura: Scattered bilateral pulmonary nodules, some of which are calcified, and overall unchanged compared to prior chest CT of 11/09/2018 and compatible with benign nodules. No new pulmonary nodules or masses. Diffuse peribronchial thickening, more pronounced within both lower lobes with areas of mucous plugging within the lingula and left lower lobe. No focal airspace opacity or consolidation. Bandlike density within the inferior lingula with areas of bronchiectasis and demonstrating similar appearance seen previously most likely related to scarring. Extensive centrilobular emphysema involving both upper lobes with mild degree of emphysematous changes involving both lower lobes. No evidence of pneumothorax or pleural effusion. Lower Neck: No enlarged lymph nodes. Thyroid: No thyroid nodules which require sonographic follow up, per consensus guidelines. Axillae: No enlarged lymph nodes. Chest Wall: Unremarkable. Bones: Unremarkable. Heart: Heart size is normal. No pericardial effusion. Thoracic Vessels: The aorta and pulmonary arteries demonstrate normal size. Mediastinum and Silvia: No enlarged lymph nodes. Esophagus: No wall thickening. No hiatal hernia. Upper Abdomen: Visualized upper abdomen solid organs and bowel loops appear normal. IMPRESSION: 1. Diffuse peribronchial thickening, more pronounced within both lower lobes with areas of mucous plugging throughout the lingula and of the left lower lobe likely related to infectious or inflammatory bronchitis. 2. Centrilobular emphysema. Dictated by: Torey Salmeron M.D. on 01/11/2024 at 15:15 Approved by: Torey Salmeron M.D. on 01/11/2024 at 15:27
== END ==
PROVIDERS: Family Provider Family Medicine; PCP Family Medicine; Referring Provider Family Medicine; Visit Provider Family Medicine
DX: J43.2 Centrilobular emphysema (principal); R91.8 Other nonspecific abnormal finding of lung field; M47.816 Spondylosis without myelopathy or radiculopathy, lumbar region; R05.3 Chronic cough; M47.817 Spondylosis without myelopathy or radiculopathy, lumbosacral region; M51.36 Other intervertebral disc degeneration, lumbar region; M51.37 Other intervertebral disc degeneration, lumbosacral region; M48.061 Spinal stenosis, lumbar region without neurogenic claudication; M48.07 Spinal stenosis, lumbosacral region; M17.11 Unilateral primary osteoarthritis, right knee; M54.50 Low back pain, unspecified; M25.561 Pain in right knee; G89.29 Other chronic pain
CPT/HCPCS: 71260; 72148; 73560; Q9967

== ENCOUNTER → 2024-02-06 09:49 | Outpatient (CLI) | payer MEDICARE, SELFPAY | LOC: RESP 09:50 | PROVIDERS: Family Provider Family Medicine; PCP Family Medicine; Referring Provider Family Medicine; Visit Provider Family Medicine | DX: R05.3 Chronic cough (principal); F17.210 Nicotine dependence, cigarettes, uncomplicated; R94.2 Abnormal results of pulmonary function studies | CPT/HCPCS: 94060; 94726; 94729 ==

== ENCOUNTER 2024-03-06 13:22 | Outpatient (CLI) | payer MEDICARE, SELFPAY ==
[2024-03-06] VITALS (8 sets, daily range): BP systolic 142–187; BP diastolic 72–94; PULSE 91–105; RESP 12–22; O2SAT 95–100
--- NOTE | 2024-03-06 13:24 | DI.RAD.S_ITS ---
PROCEDURE: PAIN L INTERLAMINAR/CAUDAL INJ INDICATIONS: L4/5 TL ERIK COMPARISON: None. FINDINGS: Fluoroscopic spot filming was performed to verify placement of spinal needles at the L4-5 level(s), as labeled on the films. Appropriate location(s) of the needle tip(s) was confirmed by injection of iodinated contrast. IMPRESSION: Fluoro guidance was provided intraoperatively for L4-5 translaminar ERIK performed by ordering physician. Dictated by: Art Pruitt M.D. on 03/06/2024 at 17:17 Approved by: Art Pruitt M.D. on 03/06/2024 at 17:17
[2024-03-06] MEDS: MIDAZOLAM 2 MG/2 ML VIAL 1 MG IV (14:35)
[2024-03-06] MEDS: BUPIVACAINE 0.25% (PF) VIAL 2 ML INJ (14:39)
[2024-03-06] MEDS: BETAMETHASONE 30 MG/5 ML MDV 12 MG INJ (14:40)
[2024-03-06] MEDS: DEXAMETHASONE 10 MG/ML VIAL INJ (14:41)
[2024-03-06] MEDS: iopamidoL 15 ML VIAL 3 ML INJ (14:41)
--- NOTE | 2024-03-06 14:52 | P.PCN_ITS ---
Date/Time/Diagnoses Date of procedure: 03/06/24 Time of procedure: 14:52 Pre-procedure diagnosis: 1. HNP WITH RADICULAR FEATURES, 2. MULTILEVEL CENTRAL STENOSIS, Post-procedure diagnosis: same Procedure Notes Procedure: 1. FLUOROSCOPICALLY GUIDED CONTRAST CONTROLLED INTERLAMINAR EPIDURAL STEROID INJECTION -L4/5 Indications: Judah is referred by Dr. Villafana for treatment of Bilateral Foraminal Stenosis R>L LE symptoms. Physician: Cisco Rogers Total Fluoroscopy time (seconds): 12 Total sedation minutes: 12 Complications: none Procedure in detail & Post-procedure care: FINDINGS Multilevel Central Spinal Stenosis with Nerve Root Compression DESCRIPTION OF PROCEDURE Fluoroscopically guided, contrast-controlled L4/5 translaminar epidural steroid injection. Following review of allergy and review of potential side effects and complications, including, but not necessarily limited to, infection, allergic reaction, local tissue breakdown, temporary as well as permanent nerve injury, paralysis, stroke and possible , the patient indicated that the patient understood and agreed to proceed. An informed consent document was signed by the patient, witnessed by a nurse, and placed in the patient's chart. Additionally, other treatment options including modalities, medications, and physical therapy were reviewed with the patient. After review of previous anaesthesic history and IV conscious sedation the patient was deemed safe to proceed with today?s procedure with IV conscious sedation as ASA class II designation. Safety time-out was performed to confirm patient ID, procedure to be performed and site of procedure. IV sedation was accomplished with a combination of 2mg of Versed was administered by the RN after DO order, titrated to patient comfort during the course of the procedure while the patient remained responsive to all verbal commands In the prone position, following sterile prep and drape of the lumbar region, the L4/5 translaminar space was identified fluoroscopically. The skin was anesthetized via a 25-gauge, 1.5inch needle with 1% lidocaine solution. At this point, a 22-gauge short bevel spinal needle was atraumatically introduced and advanced under fluoroscopic guidance into the region of the L4/5 translaminar space. Depth was confirmed on lateral view. Radiological data, including multiple fluoroscopic views of the lumbar spine, reveal a spinal needle at the L4/5 translaminar space. Lateral views then show placement of the needle in the epidural space. Subsequent views show contrast material flowing superiorly and inferiorly in the epidural space. No vascular or intrathecal uptake is observed. At this point, using loss of resistance technique with saline and air, the epidural space was entered. This was confirmed following negative aspiration with injection of approximately 1.5cc of Isovue 200, showing excellent epidural flow without vascular or intrathecal uptake. At this point, 1cc of 1% lidocaine solution combined with 2cc or 10mg of dexamethasone and 6mg betamethasone was injected without incident. The patient tolerated the procedure well without signs or symptoms of complications prior to transfer to the recovery area continued monitoring without incident. The patient was then transferred to the recovery area where they were observed for an appropriate period of time after the injection. The patient reported a VAS score of 6 prior to the procedure and a post- procedure VAS of 0. POST OP INSTRUCTIONS The patient was provided a Pain Log to continue to record their response to the target-specific procedure prior to follow-up visit with their referring physician. Additionally, specific post-injection care instructions and a contact number to our office were provided if concerns arise regarding possible complications associated with the procedure are suspected.
== END 2024-03-06 15:10 | disposition home or self-care (01) ==
LOC: RAD 13:24
PROVIDERS: Family Provider Family Medicine; PCP Family Medicine; Referring Provider Physical Medicine & Rehabilitation; Visit Provider Physical Medicine & Rehabilitation
DX: M51.16 Intervertebral disc disorders with radiculopathy, lumbar region (principal); M48.061 Spinal stenosis, lumbar region without neurogenic claudication
CPT/HCPCS: 62323; 99152; J0702; J1100; J2250; J3490

== ENCOUNTER → 2024-03-28 09:38 | Outpatient (CLI) | payer MEDICARE, SELFPAY ==
--- NOTE | 2024-03-28 09:43 | DI.RAD.S_ITS ---
PROCEDURE: XR HIP W PEL IF DONE RT 2V INDICATIONS: HIP PAIN TECHNIQUE: 2 views of the hip were acquired. COMPARISON: [facility], CR, XR HIP W PEL IF DONE RT 2V, 03/16/2023, 10:31. [facility], CR, XR HIP W PEL IF DONE RT 2V, 08/09/2022, 11:12. FINDINGS: Bones: No fractures or dislocations. No suspicious bony lesions. The visualized pelvic ring appears intact. Nonuniform joint space narrowing and osteophytic lipping of the acetabuli. Soft tissues: No suspicious soft tissue calcifications or masses. IMPRESSION: Moderate bilateral hip osteoarthritis. Dictated by: Caio Caballero M.D. on 03/28/2024 at 14:27 Approved by: Caio Caballero M.D. on 03/28/2024 at 14:29
== END ==
PROVIDERS: Family Provider Family Medicine; PCP Family Medicine; Referring Provider Family Medicine; Visit Provider Family Medicine
DX: M16.0 Bilateral primary osteoarthritis of hip (principal); M25.551 Pain in right hip
CPT/HCPCS: 73502

== ENCOUNTER → 2024-05-03 19:10 | Outpatient (CLI) | payer MEDICARE, SELFPAY ==
--- NOTE | 2024-05-03 19:13 | DI.MRI.S_ITS ---
PROCEDURE: MR STROKE Pre- and post-contrast brain MRI, non-contrast brain MR angiogram, pre- and postcontrast neck MR angiogram INDICATIONS: ALTERATION IN SPEECH TECHNIQUE: Brain: Noncontrast axial T1 spin echo, axial T2 fast spin echo, sagittal and axial FLAIR, coronal T2 fast spin echo, axial gradient echo, axial diffusion and ADC through the brain. After the administration of contrast, axial 3D VIBE of the cranial vasculature and brain. Brain MRA: Non-contrast 3-D time of flight MR angiogram, with multiple apjzsbg-vidvbofti-kaxoyywbyw (MIP) reformats performed. Neck MRA: Axial and sagittal TruFISP through the neck. Coronal dynamic MR angiogram during administration of contrast in the arterial and venous phases, with 3-dimenstional nvfeflv-rkmapfbvw-cifoishcez (MIP) reformats constructed from subtraction images. COMPARISON: None. FINDINGS: Image quality: Excellent. BRAIN: CSF spaces: Ventricles are normal in size and shape. Basal cisterns are patent. No extra-axial fluid collections. Brain: No intracranial bleeds or mass effects. Inman-white matter interface is normal. Diffusion weighted images show no acute infarct. Brainstem appears normal. Age-related global volume loss and chronic microvascular ischemic changes are present. Normal intravascular flow voids are present. No abnormal intracranial enhancement. Skull and face: Calvarial marrow signal is normal. Bilateral lens replacements. Otherwise, the orbits are unremarkable. Sinuses: Mild diffuse paranasal sinus mucosal thickening. The mastoid air cells are clear BRAIN MR ANGIOGRAM: Anterior circulation: Intracranial internal carotid arteries are normal in size and enhancement. The flow within the paired anterior cerebral arteries is normal and symmetric. The flow within the middle cerebral arteries is normal and symmetric. The anterior communicating artery is seen. No stenoses, occlusions, or aneurysms. Posterior circulation: The visualized portions of the vertebral arteries demonstrate normal caliber, and join to form a normal appearing basilar artery. The flow within the posterior cerebral arteries is normal and symmetric. No stenoses, occlusions, or aneurysms. NECK MR ANGIOGRAM: Carotids: Great vessels demonstrate a conventional anatomy as they arise from the aortic arch. The origins of the common carotid arteries appear patent. The calibers and courses of both common carotid arteries are normal. The bifurcation regions appear normal bilaterally. The internal carotid arteries demonstrate normal course and caliber. Posterior circulation: The origins of the vertebral arteries appear patent. More superior portions of both vertebral arteries demonstrate normal course and caliber, and join to form a normal appearing basilar artery. Miscellaneous: Subclavian arteries appear patent. Pre-contrast images through the neck show no soft tissue abnormalities. IMPRESSION: BRAIN MRI: No acute or subacute infarct. No acute intracranial abnormalities. Age-related global volume loss and chronic microvascular ischemic changes. BRAIN MR ANGIOGRAM: No significant arterial abnormalities. NECK MR ANGIOGRAM: No significant arterial abnormalities. Dictated by: True Winkler M.D. on 05/04/2024 at 14:43 Approved by: True Winkler M.D. on 05/04/2024 at 14:52
== END ==
PROVIDERS: Family Provider Family Medicine; PCP Family Medicine; Referring Provider Family Medicine; Visit Provider Family Medicine
DX: R47.89 Other speech disturbances (principal)
CPT/HCPCS: 70544; 70549; 70553; A9579

== ENCOUNTER 2024-05-29 09:42 | Outpatient (CLI) | payer MEDICARE, SELFPAY ==
[2024-05-29] VITALS (9 sets, daily range): BP systolic 137–175; BP diastolic 64–88; PULSE 90–98; RESP 14–24; TEMP 36.3; O2SAT 97–99
--- NOTE | 2024-05-29 09:45 | DI.RAD.S_ITS ---
PROCEDURE: PAIN SI JOINT INJECTION INDICATIONS: Right SI joint injection COMPARISON: None. FINDINGS/IMPRESSION: Fluoroscopic spot filming was performed to verify placement of spinal needles at the right SI joint level(s), as labeled on the films. Appropriate location(s) of the needle tip(s) was confirmed by injection of iodinated contrast. Dictated by: Socorro Carlin MD, PhD on 05/29/2024 at 12:08 Approved by: Socorro Carlin MD, PhD on 05/29/2024 at 12:09
[2024-05-29] MEDS: MIDAZOLAM 2 MG/2 ML VIAL 1 MG IV (10:25)
[2024-05-29] MEDS: BETAMETHASONE 30 MG/5 ML MDV 12 MG INJ (10:33)
[2024-05-29] MEDS: BUPIVACAINE 0.5% (PF) 10 ML VIAL 2 ML INJ (10:37)
[2024-05-29] MEDS: iopamidoL 15 ML VIAL 3 ML INJ (10:37)
--- NOTE | 2024-05-29 10:45 | PM.PROC.IR.1 ---
Date/Time/Diagnoses Date of procedure: 05/29/24 Time of procedure: 10:45 Pre-procedure diagnosis: Sacroiliac joint pain/DJD Post-procedure diagnosis: same Procedure Notes Procedure: Fluoroscopically guided contrast controlled right sacroiliac joint injection Indications: Judah is referred by Dr. Villafana for treatment of right sacroiliac joint DJD Physician: Cisco Rogers Total Fluoroscopy time (seconds): 8 Total sedation minutes: 16 Complications: none Procedure in detail & Post-procedure care: DESCRIPTION OF PROCEDURE Fluoroscopically guided, contrast controlled right sacroiliac joint injection Following review of allergies and review of potential side effects and complications, including, but not necessarily limited to, infection, allergic reaction, local tissue breakdown, temporary as well as permanent nerve injury, paralysis, stroke and possible , the patient indicated that they understood and agreed to proceed. An informed consent was signed by the patient, witnessed by a nurse, and placed in the patient's chart. Additionally, other treatment options including modalities, medications, and physical therapy were reviewed with the patient. After review of previous anaesthesic history and IV conscious sedation the patient was deemed safe to proceed with today?s procedure with IV conscious sedation as ASA class II designation. Safety time-out was performed to confirm patient ID, procedure to be performed and site of procedure. IV sedation was accomplished with a combination of 2mg of Versed was administered by the RN after DO order, titrated to patient comfort during the course of the procedure while the patient remained responsive to all verbal commands In the prone position following sterile prep and drape of the pelvic region, the hyper lucency on in the inferior aspect of the sacroiliac joint was identified fluoroscopically the skin was anesthetized be a 25 gauge 1 eventual with approximately 2 cc of 1% lidocaine solution. At this point, a 22 gauge 3 in spinal needle was atraumatically introduced and advanced under fluoroscopic guidance into the inferior aspect of the right sacroiliac joint. Following negative aspiration, approximately 0.3cc of Isovue-300 was injected confirming intra-articular placement without vascular uptake. Radiographic data, including multiple fluoroscopic views of the pelvis, reveals a spinal needle in the sacroiliac joint hyper lucent zone. Subsequent view show flow contrast tear superiorly and inferiorly within the joint capsule without vascular intrathecal uptake. At this point a total of 1cc of 0.5% Marcaine was combined with 1cc of 6 mg of betamethasone was injected without incident. The procedure tolerated the procedure well without signs or symptoms of complications prior to transfer to the recovery area continued monitoring without incident. The patient was then transferred to the recovery area with a bur observed for an appropriate time after the injection. The patient reverted a vas score of 7 prior to the procedure and post-procedure vas of 1. POSTOP INSTRUCTIONS The patient was provided with a pain like to continue to record the patient's response to the target specific procedure prior to the patient's follow-up visit with the referring physician. Additionally, specific post injection care instructions and a contact number to our office were provided if concerns arise regarding the possible complications associated with procedure are suspected.
== END 2024-05-29 11:10 | disposition home or self-care (01) ==
PROVIDERS: Family Provider Family Medicine; PCP Family Medicine; Referring Provider Physical Medicine & Rehabilitation; Visit Provider Physical Medicine & Rehabilitation
DX: M46.1 Sacroiliitis, not elsewhere classified (principal); M53.3 Sacrococcygeal disorders, not elsewhere classified
CPT/HCPCS: 27096; 99152; J0702; J2250

== ENCOUNTER 2024-06-21 14:57 | Emergency (ER) | payer MEDICARE, SELFPAY ==
[2024-06-21 14:58] VITALS: BP 116/84; PULSE 114; RESP 16; TEMP 37.7; O2SAT 96; BMI 23.7
--- NOTE | 2024-06-21 15:04 | DI.RAD.S_ITS ---
PROCEDURE: XR CHEST 1V INDICATIONS: suspected sepsis TECHNIQUE: One view of the chest was acquired. COMPARISON: [facility], CT, CT CHEST W CON, 01/11/2024, 13:55. FINDINGS AND IMPRESSION: Diffuse interstitial prominence, likely bronchitis/atypical infection. There is no dense airspace disease on this single view study. No pleural effusion. Suspected left lung base atelectasis/scarring. Normal heart size, unchanged. Similar mediastinal contours with right hilar prominence. Degenerative osseous changes. Dictated by: Galdino Yates M.D. on 06/21/2024 at 15:36 Approved by: Galdino Yates M.D. on 06/21/2024 at 15:38
--- NOTE | 2024-06-21 15:04 | EKG_ITS ---
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
[2024-06-21] MEDS: SODIUM CHLORIDE 0.9% 1,000 ML 1000 ML IV (15:06)
[2024-06-21 15:28] LABS: Add Manual Diff / Slide Review NO; Basophils Absolute Auto 0 /uL (0-100); Basophils Percent Auto 0.3 % (0-2); Eosinophils Absolute Auto 0 /uL (0-450); Eosinophils Percent Auto 0.1 % (2-4); Hematocrit 43.7 % (41-53); Lymphocytes Absolute Auto 200 /uL (1100-4500); Lymphocytes Percent Auto 1.8 % (25-40); Mean Corpuscular HGB Conc 34.4 % (30-36); Mean Corpuscular Hemoglobin 31.3 PG (26-34); Monocytes Absolute Auto 700 /uL (0-900); Monocytes Percent Auto 7.7 % (3-14); Neutrophils Absolute Auto 8100 /uL (1500-7000); Neutrophils Percent Auto 90.1 % (50-75); Platelet Count 143 X10^3/uL (150-400); Red Blood Cell Count 4.81 X10^6/uL (4.5-5.9); Red Cell Distribution Width 14.7 % (11.6-14.8)
[2024-06-21 15:32] LABS: INR 1.4 (0.9-1.3); Prothrombin Time 15.9 SECONDS (9.4-12.5)
[2024-06-21 15:34] LABS: PTT Partial Thromboplastin Tim 35 SECONDS (25.1-36.5)
[2024-06-21 15:37] LABS: Alanine Aminotransferase 23 IU/L (<50); Albumin Globulin Ratio 1.4 (1.0-2.8); Alkaline Phosphatase 51 U/L (38-126); Aspartate Aminotransferase 27 IU/L (17-59); BUN Creatinine Ratio 19.2 (6-22); Bilirubin Total 1.2 mg/dL (0.2-1.3); Blood Urea Nitrogen 19 mg/dL (9-20); Calcium 8.9 mg/dL (8.4-10.2); Carbon Dioxide 19 mmol/L (22-32); Chloride 106 mmol/L (98-107); Estimated Glomerular Filt Rate > 60 mL/min (>60); Globulin 2.9 g/dL (1.7-4.1); Glucose 100 mg/dL (80-110); HEMOLYSIS 17 (0-50); Lactate (Lactic Acid) 0.7 mmol/L (0.7-2.1); Lipase 25 U/L (23-300); Potassium 3.8 mmol/L (3.4-5.1); Sodium 135 mmol/L (137-145); Total Protein 6.9 g/dL (6.3-8.2)
[2024-06-21 15:44] VITALS: PULSE 104; RESP 25; O2SAT 96
[2024-06-21 15:53] LABS: Influenza A - CEPHEID Flu A POSITIVE (NEGATIVE); Influenza B - CEPHEID Flu B NEGATIVE (NEGATIVE); Respiratory Syncytial Virus Negative (Negative)
[2024-06-21 15:54] LABS: Procalcitonin 0.078 ng/mL (<0.5)
[2024-06-21 15:56] LABS: COVID-19 CEPHEID 4-PLEX PCR Negative (Negative)
[2024-06-21 16:00] VITALS: BP 138/65; PULSE 101; RESP 20; O2SAT 91
--- NOTE | 2024-06-21 16:14 | ED_ITS ---
HPI - Weakness General Chief complaint: Weakness Stated complaint: Fever Time Seen by Provider: 06/21/24 15:35 Source: patient and EMS Mode of arrival: Ambulatory History of Present Illness HPI Narrative: Patient here with . Complains of onset symptoms today. Fever body aches chills weakness coughing. No nausea vomiting or diarrhea. Patient is undergoing radiation treatment for prostate cancer with [facility], Dr. Jacobs. Vital signs noted. Sick contacts include , she started getting sick this past Tuesday after returning from [place] for a large conference. Related Data Home Medications Medication Instructions Recorded Confirmed aspirin 81 mg chewable tablet 81 mg PO QPM 01/03/19 05/14/24 cholecalciferol (vitamin D3) 25 1,000 unit PO QPM 01/03/19 05/14/24 mcg (1,000 unit) capsule (Vitamin D3) cyanocobalamin (vitamin B-12) 1,000 mcg PO QPM 01/03/19 05/14/24 1,000 mcg tablet (Vitamin B-12) pravastatin 20 mg tablet 20 mg PO BEDTIME 01/03/19 05/14/24 tiotropium bromide 18 mcg capsule 1 cap inhalation DAILY 12/20/22 05/14/24 with inhalation device (Spiriva with HandiHaler) dorzolamide 22.3 mg-timolol 6.8 1 drp EYE-BOTH ONCE 02/08/24 05/14/24 mg/mL eye drops fluticasone 250 mcg-salmeterol 50 1 ea inhalation BID 02/08/24 05/14/24 mcg/dose blistr powdr for inhalation (Johnathonela Inhub) ibuprofen 200 mg capsule 200 mg PO Q6H PRN 02/08/24 05/14/24 prednisone 5 mg tablet 5 mg PO DAILY 05/14/24 05/14/24 Previous Rx's Medication Instructions Recorded acetaminophen 500 mg capsule 1,000 mg (2 x 500 mg) PO Q6H PRN 11/30/23 pain #60 caps docusate sodium 100 mg capsule 100 mg PO BID #30 caps 11/30/23 (Colace) meloxicam 15 mg tablet 15 mg PO DAILY #30 tabs 02/08/24 benzonatate 100 mg capsule 100 mg PO TID PRN cough #21 caps 06/21/24 oseltamivir 75 mg capsule (Tamiflu) 75 mg PO BID 5 days #10 caps 06/21/24 Allergies Allergy/AdvReac Type Severity Reaction Status Date / Time No Known Drug Allergies Allergy Verified 06/21/24 14:58 Review of Systems Review of Systems Narrative: GENERAL: Positive chills, fatigue, malaise, fever, sweats. HEENT: Negative sinus pain, ear pain, sore throat RESPIRATORY: Negative dyspnea, positive cough CARDIOVASCULAR: Negative chest pain, palpitations GASTROINTESTINAL: Negative nausea, vomiting, abdominal pain : Negative dysuria, frequency, hematuria MUSCULOSKELETAL: Positive muscle or bony pain SKIN: Negative rash, skin lesions NEUROLOGIC: Negative weakness, numbness ROS Unobtainable: All systems reviewed & are unremarkable except as noted in HPI and below Patient History Medical History Acute arthritis Cluneal neuropathy COPD (chronic obstructive pulmonary disease) Emphysema, unspecified Left foot pain Low back pain Lumbar spondylosis Lumbar stenosis with neurogenic claudication Nerve damage Osteoarthritis of right knee Osteophyte, right knee Prostate cancer Right buttock pain Right elbow pain Right hip pain Right knee pain Sacral dysfunction Surgical History Hx of prostatectomy Family History Father Prostate CA Mother Lung cancer Social History marital status: details: Pt. works part-time at the [employer]. household members: spouse lives independently: Yes occupational status: employed Smoking Status: Current every day smoker alcohol intake: former substance use type: does not use Smoking Status: Current every day smoker tobacco type: cigarettes alcohol intake frequency: holidays/special occasions only Exam Narrative Exam Narrative: GENERAL: in no distress, not toxic not dyspneic HEAD: Normocephalic. EYES: Pupils equal round ENT: Mucous membranes moist. NECK: Trachea midline. CARDIOVASCULAR: Regular rate and rhythm, tachycardic RESPIRATORY: Clear to auscultation. Breath sounds equal bilaterally. No wheezes, rales, or rhonchi. Speaking comfortably full sentences GASTROINTESTINAL: Abdomen soft, non-tender EXTREMITIES: No gross deformities. BACK: No flank tenderness. NEURO: AOx4. Clear speech SKIN: Warm and dry PSYCH: Not anxious, is cooperative Initial Vital Signs Initial Vital Signs: Vital Signs Temperature 99.8 F H 06/21/24 14:58 Pulse Rate 114 H 06/21/24 14:58 Respiratory Rate 16 06/21/24 14:58 Blood Pressure 116/84 06/21/24 14:58 Pulse Oximetry 96 06/21/24 14:58 Oxygen Delivery Method Room Air 06/21/24 14:58 Course Orders Ordered: Discontinued Medications Acetaminophen (Acetaminophen 325 Mg Tablet) 975 mg PO NOW ONE Stop: 06/21/24 16:11 Last Admin: 06/21/24 16:38 Dose: Not Given Documented By: JAZZMINE Benzonatate (Benzonatate 100 Mg Capsule) 100 mg PO NOW ONE Stop: 06/21/24 16:11 Last Admin: 06/21/24 16:39 Dose: 100 mg Documented By: JAZZMINE Sodium Chloride (Normal Saline 0.9%) 1,000 mls @ 1,000 mls/hr IV BOLUS ONE Stop: 06/21/24 16:03 Last Infusion: 06/21/24 16:44 Dose: Infused Documented By: Admin: 06/21/24 15:06 Dose: 1,000 mls/hr Documented By: JAZZMINE Ketorolac Tromethamine (Ketorolac 30 Mg/Ml Vial) 15 mg IV NOW ONE Stop: 06/21/24 16:11 Last Admin: 06/21/24 16:39 Dose: 15 mg Documented By: JAZZMINE Ondansetron HCl (Ondansetron 4 Mg/2 Ml Inj) 4 mg IV NOW PRN PRN Reason: Nausea And Vomiting Ondansetron HCl (Ondansetron 4 Mg Odt) 4 mg SL NOW PRN PRN Reason: Nausea And Vomiting Oseltamivir Phosphate (Oseltamivir 75 Mg Capsule) 75 mg PO NOW ONE Stop: 06/21/24 16:15 Last Admin: 06/21/24 16:39 Dose: 75 mg Documented By: JAZZMINE Vital Signs Vital signs: Vital Signs - 8 hr 06/21/24 14:58 06/21/24 15:44 Temperature 99.8 F H Pulse Rate 114 H 104 H Respiratory Rate 16 25 H Blood Pressure 116/84 Pulse Oximetry 96 96 Oxygen Delivery Method Room Air MDM - Weakness Lab Data 06/21/24 15:11 06/21/24 15:11 Labs: Lab Results 02/27/25 Range/Units 15:11 WBC 9.0 (4.5-11.0) X10^3/uL RBC 4.81 (4.5-5.9) X10^6/uL Hgb 15.0 (13.5-17.5) g/dL Hct 43.7 (41-53) % MCV 91.0 (80-100) fL MCH 31.3 (26-34) PG MCHC 34.4 (30-36) % RDW 14.7 (11.6-14.8) % Plt Count 143 L (150-400) X10^3/uL Neut % (Auto) 90.1 H (50-75) % Lymph % (Auto) 1.8 L (25-40) % Davidson % (Auto) 7.7 (3-14) % Eos % (Auto) 0.1 L (2-4) % Baso % (Auto) 0.3 (0-2) % Neut # (Auto) 8100 H (7202-2763) /uL Lymph # (Auto) 200 L (6139-2307) /uL Davidson # (Auto) 700 (0-900) /uL Eos # (Auto) 0 (0-450) /uL Baso # (Auto) 0 (0-100) /uL PT 15.9 H (9.4-12.5) SECONDS INR 1.4 H (0.9-1.3) APTT 35 (25.1-36.5) SECONDS Sodium 135 L (137-145) mmol/L Potassium 3.8 (3.4-5.1) mmol/L Chloride 106 (98-107) mmol/L Carbon Dioxide 19 L (22-32) mmol/L BUN 19 (9-20) mg/dL Creatinine 0.99 (0.66-1.25) mg/dL Estimated GFR > 60 (>60) mL/min BUN/Creatinine Ratio 19.2 (6-22) Glucose 100 (80-110) mg/dL Lactate 0.7 (0.7-2.1) mmol/L Calcium 8.9 (8.4-10.2) mg/dL Total Bilirubin 1.2 (0.2-1.3) mg/dL AST 27 (17-59) IU/L ALT 23 (<50) IU/L Alkaline Phosphatase 51 (38-126) U/L Total Protein 6.9 (6.3-8.2) g/dL Albumin 4.0 (3.5-5.0) g/dL Globulin 2.9 (1.7-4.1) g/dL Albumin/Globulin Ratio 1.4 (1.0-2.8) Lipase 25 (23-300) U/L Procalcitonin 0.078 (<0.5) ng/mL SARS-CoV-2 (PCR) Negative (Negative) Influenza A (RT-PCR) Flu a positive H (NEGATIVE) Influenza B (RT-PCR) Flu b negative (NEGATIVE) RSV (PCR) Negative (Negative) Imaging Data Chest x-ray: Radiologist Impression: [address] [address] XRay Report Signed Patient: Judah Cee MR#: [id number] : 1945 Acct:[id number] Age/Sex: 79 / M Date of Service: 06/21/24 Loc: ED Accession Number: [id number] Procedure: XR chest 1V Ordering Provider: Juanjo Luna MD PROCEDURE: XR CHEST 1V INDICATIONS: suspected sepsis TECHNIQUE: One view of the chest was acquired. COMPARISON: [facility], CT, CT CHEST W CON, 01/11/2024, 13:55. FINDINGS AND IMPRESSION: Diffuse interstitial prominence, likely bronchitis/atypical infection. There is no dense airspace disease on this single view study. No pleural effusion. Suspected left lung base atelectasis/scarring. Normal heart size, unchanged. Similar mediastinal contours with right hilar prominence. Degenerative osseous changes. Dictated by: Galdino Yates M.D. on 06/21/2024 at 15:36 Approved by: Galdino Yates M.D. on 06/21/2024 at 15:38 [facility] Narrative Medical decision making narrative: Patient here with . Complains of onset symptoms today. Fever body aches chills weakness coughing. No nausea vomiting or diarrhea. Patient is undergoing radiation treatment for prostate cancer with [facility], Dr. Jacobs. Vital signs noted. Sick contacts include , she started getting sick this past Tuesday after returning from [place] for a large conference. After history and exam, CBC CMP lactic acid procalcitonin chest x-ray respiratory panel normal saline Toradol Tylenol Tamiflu [facility] Medical records reviewed: No recent visit for this complaint Differential considered: Includes but not limited to rhino virus influenza COVID adenovirus RSV pneumonia bronchitis Lab Test results independently reviewed as above. Pertinent findings: Positive influenza WBC 9.0 hemoglobin 15 sodium 135 potassium 3.8 BUN 19 creatinine 0.99 procalcitonin 0.078 lactic acid 0.7 Independently reviewed EKG sinus tachycardia rate 111 Imaging studies independently reviewed: Chest x-ray no acute finding Consultations: No call back from oncologist Treatments: Tylenol Toradol normal saline Tamiflu Re-evaluations: 5:22 p.m.. Patient feeling much better after IV fluids Toradol Tylenol Tamiflu. 93% room air. Has good color to his face and cheeks warm and pink. Heart rate has improved 95. Blood pressure 138/66 respiration 22. Reviewed results with patient and . They desire discharge home. We did try calling his oncologist Dr. Jacobs however no call back from him or they office. They will call tomorrow to cancel his radiation treatments as he has been treated for the flu. Return precautions reviewed. They desire discharge home Discussion: Appropriate for discharge home exam is reassuring. Return precautions reviewed with patient and . They desire discharge home. Diagnosis: Influenza Discharge Plan Departure Patient Disposition: Home Clinical Impression: Influenza A Instructions: DI for Influenza -- Adult Activity Restrictions/Additional Instructions: If test is positive for the flu. Tamiflu has been started. Cough medication prescription provided for you as well. Prescriptions have been sent to your pharmacy to [facility] tonight. We have tried calling your oncologist but no call back from his office or him. Please call the office tomorrow to inform him that you are being treated for the flu and should hold off on radiation treatment at this time. See family doctor within a week for re-evaluation. Return if worse if any questions or concerns. Keep well hydrated. Continue Tylenol or ibuprofen for fever body aches. Prescriptions: New benzonatate 100 mg capsule 100 mg PO TID PRN (Reason: cough) Qty: 21 0RF oseltamivir [Tamiflu] 75 mg capsule 75 mg PO BID 5 Days Qty: 10 0RF No Action cyanocobalamin (vitamin B-12) [Vitamin B-12] 1,000 mcg tablet 1,000 mcg PO QPM Patient Comments: Take 1 tablet by mouth once a day aspirin 81 mg tablet,chewable 81 mg PO QPM Patient Comments: Take 1 tablet by mouth once a day pravastatin 20 mg tablet 20 mg PO BEDTIME Patient Comments: take 1 tablet by mouth at bedtime cholecalciferol (vitamin D3) [Vitamin D3] 1,000 unit capsule 1,000 unit PO QPM Patient Comments: Take 1 capsule by mouth once a day acetaminophen 500 mg capsule 1,000 mg PO Q6H PRN (Reason: pain) Qty: 60 0RF docusate sodium [Colace] 100 mg capsule 100 mg PO BID Qty: 30 0RF prednisone 5 mg tablet 5 mg PO DAILY Patient Comments: [NO ORIGINAL SIG] Spiriva with HandiHaler 18 mcg capsule, w/inhalation device 1 cap inhalation DAILY fluticasone propion-salmeterol [Wixela Inhub] 250-50 mcg/dose blister with device 1 ea inhalation BID dorzolamide-timolol 22.3-6.8 mg/mL drops 1 drp EYE-BOTH ONCE ibuprofen 200 mg capsule 200 mg PO Q6H PRN Hold Instructions: Home Medication placed on hold at Doctor's office meloxicam 15 mg tablet 15 mg PO DAILY Qty: 30 2RF Hold Instructions: Home Medication placed on hold at Doctor's office Referrals: Cisco Villafana MD [Primary Care Provider] - Stand Alone Forms: Patient Portal/API/Survey
[2024-06-21 16:30] VITALS: BP 123/73; PULSE 101; RESP 18; O2SAT 93
[2024-06-21] MEDS: KETOROLAC 30 MG/ML VIAL 15 MG IV (16:39)
[2024-06-21] MEDS: OSELTAMIVIR 75 MG CAPSULE PO (16:39)
[2024-06-21] MEDS: BENZONATATE 100 MG CAPSULE PO (16:39)
[2024-06-21 17:00] VITALS: BP 138/66; PULSE 95; RESP 22; O2SAT 93
--- NOTE | 2024-06-21 17:31 | PC.NURSE ---
Addendum entered by Juanita Jones R.N. 06/21/24 17:31: Reports having flu vaccine this season Original Note: Pt reports was sick; recently came back from conference. Pt reports congestion, chronic cough. Recently undergone radiation treatment after PSA went up. Pt endorses fevers and headache.
== END 2024-06-21 17:32 | disposition home or self-care (01) ==
PROVIDERS: Emergency Provider Emergency Medicine; Family Provider Family Medicine; PCP Family Medicine
DX: J10.1 Influenza due to other identified influenza virus with other respiratory manifestations (principal); C61 Malignant neoplasm of prostate; R00.0 Tachycardia, unspecified; F17.200 Nicotine dependence, unspecified, uncomplicated
CPT/HCPCS: 0241U; 71045; 80053; 83605; 83690; 84145; 85025; 85610; 85730; 87040; 93005; 96361; 96374; 99284; J1885

== ENCOUNTER → 2024-08-23 14:25 | Outpatient (CLI) | payer MEDICARE, SELFPAY ==
[2024-08-23] VITALS (8 sets, daily range): BP systolic 141–187; BP diastolic 74–86; PULSE 82–92; RESP 14–16; TEMP 36.4; O2SAT 97–100
[2024-08-23] MEDS: MIDAZOLAM 2 MG/2 ML VIAL 1 MG IV (15:54)
[2024-08-23] MEDS: DEXAMETHASONE 10 MG/ML VIAL 20 MG INJ (15:59)
[2024-08-23] MEDS: iopamidoL 15 ML VIAL 3 ML INJ (16:00)
[2024-08-23] MEDS: BETAMETHASONE 30 MG/5 ML MDV 12 MG INJ (16:00)
[2024-08-23] MEDS: BUPIVACAINE 0.25% (PF) VIAL 2 ML INJ (16:00)
--- NOTE | 2024-08-23 16:11 | P.PCN_ITS ---
Date/Time/Diagnoses Date of procedure: 08/23/24 Time of procedure: 16:11 Pre-procedure diagnosis: 1. FORAMINAL STENOSIS WITH LE SYMPTOMS Post-procedure diagnosis: same Procedure Notes Procedure: 1. FLUOROSCOPICALLY GUIDED CONTRAST CONTROLLED TRANSFORAMINAL EPIDURAL STEROID INJECTION - RIGHT L3/4 TFESI Indications: Judah is referred by Dr. Villafana for treatment of Foraminal Stenosis with right LE Symptoms Physician: Cisco Rogers Total Fluoroscopy time (seconds): 8 Total sedation minutes: 12 Complications: none Procedure in detail & Post-procedure care: FINDINGS Foraminal Nerve Root Compression secondary to disc disease and facet hypertrophy DESCRIPTION OF PROCEDURE Following review of allergy and review of potential side effects and complications, including, but not necessarily limited to, infection, allergic reaction, local tissue breakdown, stroke, temporary or permanent nerve injury, paralysis, and possible , the patient indicated that the patient understood and agreed to proceed. An informed consent document was signed by the patient, witnessed by a nurse, and placed in the patient's chart. Additionally, other treatment options including medications, modalities, and physical therapy were reviewed with the patient. After review of previous anaesthesic history and IV conscious sedation the patient was deemed safe to proceed with today?s procedure with IV conscious sedation as ASA class II designation. Safety time-out was performed to confirm patient ID, procedure to be performed and site of procedure. IV sedation was accomplished with a combination of 1mg of Versed was administered by the RN after DO order, titrated to patient comfort during the course of the procedure while the patient remained responsive to all verbal commands In the prone position following sterile prep and drape of the lumbar region, the right L3/4 posterior neuroforamen was identified fluoroscopically. The skin was anesthetized via a 25-gauge 1.5-inch needle with 1% lidocaine solution. At this point, a 25-gauge 3.5-inch spinal needle was atraumatically introduced and advanced under fluoroscopic guidance through the posterior right L3/4 neuroforamen to approximately the anterior aspect of the canal. Depth was confirmed on lateral view. Following negative aspiration, injection of approximately 1.5 cc of Isovue 200 under live fluoroscopy in the AP view conf irmed excellent flow along the nerve root, into the epidural space without vascular or intrathecal uptake observed Radiological data, including multiple fluoroscopic views of the lumbosacral spine, reveal a spinal needle at the right L3/4 posterior neuroforamen. Subsequent views show flow of contrast material flowing superiorly and inferiorly along the nerve root confirming epidural flow. Subsequently, a test dose of 1.5 cc of 1% lidocaine solution was administered and patient was observed for two minutes for signs or symptoms of complications, including abdominal pain, shortness of breath, bilateral upper or lower extremity weakness, nausea and vomiting, prior to steroid injection. At this point, a total of 3cc or 10mg of dexamethasone and 6mg of betamethasone was injected without incident. The patient tolerated the procedure well without signs or symptoms of complications prior to transfer to the recovery area continued monitoring without incident. The patient was then transferred to the recovery area where they were observed for an appropriate time after the injection. The patient reported a VAS score of 7 prior to the procedure and a post-procedure VAS of 0. POST OP INSTRUCTIONS The patient was provided a Pain Log to continue to record their response to the target-specific procedure prior to follow-up visit with their referring phy sician. Additionally, specific post-injection care instructions and a contact number to our office were provided if concerns arise regarding possible complications associated with the procedure are suspected.
== END ==
PROVIDERS: Family Provider Family Medicine; PCP Family Medicine; Referring Provider Physical Medicine & Rehabilitation; Visit Provider Physical Medicine & Rehabilitation
DX: M48.061 Spinal stenosis, lumbar region without neurogenic claudication (principal); M51.16 Intervertebral disc disorders with radiculopathy, lumbar region; M47.26 Other spondylosis with radiculopathy, lumbar region
CPT/HCPCS: 64483; 99152; J0702; J1100; J2250; J3490

== ENCOUNTER → 2024-08-30 13:51 | Outpatient (CLI) | payer MEDICARE, SELFPAY | LOC: WC 13:53 | PROVIDERS: Family Provider Family Medicine; PCP Family Medicine; Referring Provider Physician Assistant; Visit Provider Surgery | DX: S61.412A Laceration without foreign body of left hand, initial encounter (principal); J44.9 Chronic obstructive pulmonary disease, unspecified; M19.90 Unspecified osteoarthritis, unspecified site; C61 Malignant neoplasm of prostate; F17.210 Nicotine dependence, cigarettes, uncomplicated; Z79.52 Long term (current) use of systemic steroids | CPT/HCPCS: 11042; 99203; 99213 ==

== ENCOUNTER → 2024-09-06 14:55 | Outpatient (CLI) | payer MEDICARE, SELFPAY | LOC: WC 14:57 | PROVIDERS: Family Provider Family Medicine; PCP Family Medicine; Referring Provider Family Medicine; Visit Provider Surgery | DX: S61.402D Unspecified open wound of left hand, subsequent encounter (principal) | CPT/HCPCS: 99212; 99213 ==

== ENCOUNTER → 2025-01-25 12:54 | Outpatient (CLI) | payer MEDICARE, SELFPAY ==
--- NOTE | 2025-01-25 12:59 | DI.RAD.S_ITS ---
PROCEDURE: XR LUMBAR SPINE MIN 4V INDICATIONS: LUMBAR PAIN TECHNIQUE: Five views with flexion and extension views COMPARISON: [facility], CR, XR LUMBAR SPINE MIN 4V, 10/28/2022, 15:54. FINDINGS: Bones: Osseous demineralization. Multilevel degenerative disc disease and facet arthropathy. Grade 1 anterolisthesis at L4-L5 with reduction on extension. Vertebral body heights maintained. No acute fracture. Aortic calcifications. Soft tissues: Overlying bowel gas pattern is normal. No suspicious soft tissue calcifications. IMPRESSION: L4-L5 grade 1 anterolisthesis with reduction on extension Dictated by: Dereje Henry M.D. on 01/25/2025 at 14:37 Approved by: Dereje Henry M.D. on 01/25/2025 at 14:39
== END ==
PROVIDERS: Family Provider Family Medicine; PCP Family Medicine; Referring Provider Physician Assistant; Visit Provider Physician Assistant
DX: M51.360 Other intervertebral disc degeneration, lumbar region with discogenic back pain only (principal); M47.816 Spondylosis without myelopathy or radiculopathy, lumbar region; M43.16 Spondylolisthesis, lumbar region
CPT/HCPCS: 72110

== ENCOUNTER 2025-01-31 12:31 | Outpatient (CLI) | payer MEDICARE, SELFPAY ==
[2025-01-31] VITALS (8 sets, daily range): BP systolic 126–172; BP diastolic 73–104; PULSE 93–104; RESP 16–93; TEMP 36.6; O2SAT 22–100
[2025-01-31] MEDS: MIDAZOLAM 2 MG/2 ML VIAL 1 MG IV ×2 (13:25→13:34)
--- NOTE | 2025-01-31 13:43 | PM.PROC.IR.1 ---
Date/Time/Diagnoses Date of procedure: 01/31/25 Time of procedure: 13:43 Pre-procedure diagnosis: 1. FACET ARTHROPATHY Post-procedure diagnosis: same Procedure Notes Procedure: 1. Right L4, L5 and S1 MB BLOCKS LA Indications: Judah is referred by Dr. Villafana for treatment of Right Axial LBP. Physician: Cisco Rogers Total Fluoroscopy time (seconds): 8 Total sedation minutes: 15 Complications: none Procedure in detail & Post-procedure care: DESCRIPTION OF PROCEDURE Fluoroscopically guided, contrast-controlled right L4, L5 and S1 medial branch blocks with 0.5cc of 0.5% Marcaine. Following review of allergy and review of potential side effects and complications, including, but not necessarily limited to, infection, allergic reaction, local tissue breakdown, nerve injury, paralysis, stroke and possible , the patient indicated that the patient understood and agreed to proceed. An informed consent document was signed by the patient, witnessed by a nurse, and placed in the patient's chart. After review of previous anaesthesic history and IV conscious sedation the patient was deemed safe to proceed with today?s procedure with IV conscious sedation as ASA class II designation. Safety time-out was performed to confirm patient ID, procedure to be performed and site of procedure. IV sedation was accomplished with a combination of 2mg of Versed was administered by the RN after DO order, titrated to patient comfort during the course of the procedure while the patient remained responsive to all verbal commands In the prone position, following sterile prep and drape of the lumbar region, the right L4, L5 and S1 anatomical location of the medial branch of the dorsal ramus was identified fluoroscopically. Subsequently an anesthetic skin wheal using 1% lidocaine solution was initiated at each of the anatomical spots. Subsequently then a 22-gauge 3.5-inch spinal needle was atraumatically introduced and advanced under fluoroscopic guidance at each of the corresponding sites at the right L4, L5 and S1 MB. After negative aspiration, 0.2 cc of Isovue 200 was injected, confirming placement without vascular or intrathecal uptake. Subsequently then 0.5 cc of 0.5% Marcaine solution was injected at each of the corresponding sites at the right L4, L5 and S1 medial branch locations. The patient tolerated the procedure well without signs or symptoms of complications. The procedure tolerated the procedure well without signs or symptoms of complications prior to transfer to the recovery area continued monitoring without incident. Post-procedure, the patient was monitored initiating provocative activities to measure the amount of relief from block of the facetogenic pain. The patient reported a VAS of 7 prior to the procedure and a post-procedure VAS of 1. It has been a pleasure to assist in the diagnostic and therapeutic care of your patient. POST OP INSTRUCTIONS The patient was provided with a Pain Log to complete over the next several hours and subsequent days prior to the patient's follow up with the ordering physician. If the patient has analog ic design engineer relief to the solution applied, then they may be a candidate for medial branch rhizotomy. The patient is aware, was provided, once again, with a Pain Log and will follow up with the referring physician for review and clinical correlation.
== END 2025-01-31 14:30 | disposition home or self-care (01) ==
PROVIDERS: Family Provider Family Medicine; PCP Family Medicine; Referring Provider Family Medicine; Visit Provider Physical Medicine & Rehabilitation
DX: M47.816 Spondylosis without myelopathy or radiculopathy, lumbar region (principal); M47.817 Spondylosis without myelopathy or radiculopathy, lumbosacral region
CPT/HCPCS: 64493; 64494; 99152; J2250

== ENCOUNTER → 2025-02-01 06:48 | Outpatient (CLI) | payer MEDICARE, SELFPAY ==
--- NOTE | 2025-02-01 06:50 | DI.US.S_ITS ---
PROCEDURE: US AORTA LIMITED INDICATIONS: Peripheral tear disease TECHNIQUE: Real time scanning was performed of the aorta and iliac arteries, with image documentation. COMPARISON: None. FINDINGS: Aorta: No infrarenal aortic aneurysm. Maximum velocity measures 80 centimeter/second in the mid aorta. Iliac arteries: Right common iliac artery measures 1.2 cm, velocities between 63 through 89 centimeter/second. These are triphasic. Left common iliac artery measures 1.1 cm, velocities between 75 through 93 centimeter/second. The right external iliac artery measures 95 centimeter/second. Common femoral artery measures 84 centimeter/second. Left external iliac artery is not well demonstrated. The common femoral artery measures 100 centimeter/second. All waveforms are triphasic. IMPRESSION: Left external iliac artery stent is not well demonstrated . Velocity is proximal and distal to the stent are patent, with triphasic waveforms. Findings do not suggest hemodynamically significant stenosis. Dictated by: Caio Caballero M.D. on 02/02/2025 at 14:06 Approved by: Caio Caballero M.D. on 02/02/2025 at 14:09
--- NOTE | 2025-02-01 06:50 | DI.US.S_ITS ---
PROCEDURE: US BURTON LIMITED SINGLE LEVEL INDICATIONS: PERIPHERAL ARTERIAL DISEASE TECHNIQUE: 1) Ankle-brachial indices were obtained bilaterally and recorded. COMPARISON: None. FINDINGS: Ankle-brachial indices: Pressures are as follows: Right brachial 135 mm of Hg Left brachial 137 mm of Hg Right ankle 173 mm of Hg, asymmetrically increased right ankle fracture. Left ankle 111 mm of Hg Right BURTON 1.26 Left BURTON 0.81 Triphasic waveforms are noted in the bilateral lower extremities. Bilateral ankle edema noted. IMPRESSION: Left BURTON of 0.81 concerning for opmu-il-omymzscf disease. Right BURTON of 1.26. Asymmetric increased pressures in the right lower extremity of unclear significance. Dictated by: Nayeli Masters M.D. on 02/04/2025 at 9:24 Approved by: Nayeli Masters M.D. on 02/04/2025 at 9:29
== END ==
LOC: US 06:50
PROVIDERS: Family Provider Family Medicine; PCP Family Medicine; Referring Provider Physician Assistant; Visit Provider Physician Assistant
DX: I73.9 Peripheral vascular disease, unspecified (principal)
CPT/HCPCS: 93922; 93978

== ENCOUNTER → 2025-02-14 09:32 | Outpatient (CLI) | payer MEDICARE, SELFPAY ==
--- NOTE | 2025-02-14 16:25 | ST.SWALLOW ---
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 Pt is being followed by Neurology Department and is undergoing diagnostic workup ALS. Pt was accompanied by his ,, who assisted with background information. Pt's PMH included GERD treated with Omneprozol, and a recent EGD during which he had expansion of 2 areas of his esophagus. He was treated for an esophageal yeast infection, according to his . Pt presented with dysarthric speech, but was 100% intelligible. Relative to his swallowing, pt reported he feels foods getting stuck, pointing to his sternal notch. He stated this globus sensation occurs with solid foods and pills. He denied regurgitation of undigested foods or liquids. Pt was previously seen for a MBSS at [facility] on 08/07/21. The results of that evaluation indicated OME and DKS to be WNL. Premature spillage, moderately reduced hyolaryngeal elevation, significant pooling in the vallecula and pyriform sinuses. 4+ swallows were attempted to clear the solid trials from the pharynx. No laryngeal penetration or tracheal aspiration were noted. Small diverticulum and large CP bar were also described Subjective Pt was seated in the flouroscopy chair with directions Observations and procedures explained for him. He indicated he understood and agreed to proceed. Patient Positioning Position View Lat-A/P Imaging Lateral View Textures Administered Trials Presented Thin Liquid via Spoon (IDDSI 0),Thin Liquid via Cup ( IDDSI 0),Extremely Thick Liquid via Spoon (IDDSI 4), Regular (IDDSI 7) Barium Tablet Yes The IDDSI Framework Protocol: IDDSI.1 Oral Impairment Source: The Modified Barium Swallow Impairment Profile (MBSImP??) Lip Closure Escape from interlab.space/lat.junct.;no ext. beyond vermilion border Tongue Control Cohesive bolus between tongue to palatal seal During Bolus Hold Bolus Preparation/ Disorganized chewing/mashing with solid pieces of bolus Mastication unchewed Bolus Transport/ Repetitive/disorganized tongue motion Lingual Motion Oral Residue Residue collection on oral structures Location Tongue Initiation of Bolus head at pyriforms Pharyngeal Swallow Additional Oral *OME noted reduced lingual control, ROM and speed. Impairment Facial and labial muscles were WFL Observations *Lingual fasciculations not observed *DKS was observed to be slower than expected. Speech was dysarthric *Dentition included an upper denture and many missing lower teeth *Mastication observed with anterior munching pattern with unchewed solid pieces *Reduced bolus formation, control and AP transition. *Velopharyngeal closure appeared to be adequate Pharyngeal Impairment Source: The Modified Barium Swallow Impairment Profile (MBSImP??) Soft Palate No bolus between soft palate & pharyngeal wall Elevation Laryngeal Elevation Part.sup.move.thyroid cart/part.approx.arytenoids to epiglot.petiole Anterior Hyoid No anterior movement Excursion Epiglottic Movement Complete inversion Laryngeal Vestibular Complete; no air/contrast in laryngeal vestibule Closure Pharyngeal Stripping Present - diminished Wave Pharyngoesophageal Complete distention & complete duration; no obstruction Segment Opening of flow Tongue Base Narrow column of contrast/air betwn tongue base & post. Retraction pharyngeal wall Pharyngeal Residue Collection of residue within/on pharyngeal structures Location Diffuse (>3 areas) Additional *Weak tongue base retraction and hyolaryngeal elevation Pharyngeal and movement. Impairment *Epiglottic inversion complete but reduced stripping of Observations the posterior wall resulting in reduced bolus control through the pharynx *Diffuse pharyngeal residue observed post swallow *Laryngeal penetration of thin liquid x1 without laryngeal residue (WNL for pt's age) *No tracheal aspiration observed A/P View The IDDSI Framework Protocol: IDDSI.1 A/P View Observations Pharyngeal Complete Contraction Esophageal Clearance Esophageal retention w/regtrograde flow below Upright Position pharyngoesoph segment Vocal Fold Function Good Esophageal Function Slowed Clearing,Reverse Peristalsis,Stasis Additional A-P Thin barium and calibrated barium tablet provided for Observations AP trials *Esophageal retention of solid and semi-solid food trials noted from UES to mid esophagus *Thin barium cleared esophagus in a timely manner *Calibrated barium tablet stopped at LES. additional water was not effective in clearing tablet to the stomach. *MBSS was stopped with the tablet remaining in the esophagus near LES Esophageal phase of swallow observed to be WFL Clinical Impressions Dysphagia Type WNL,Oral,Pharyngeal Findings Pt presented with oropharyngeal dysphagia. Oral weakness with reduced lingual coordination was observed . Dysarthric speech was moderate with reduced diadochkinesis. This is a reduction in oral motor skills compared to the MBSS report of 08/07/21. In 2021, pt's OME and DKS were observed to be WNL. Reduced lingual control during mastication was observed in this MBSS and was not observed in 2021. The current pharyngeal phase results are noted to be minimally different from those observed in 08/07/21. For both MBSSs, premature spillage of all trials to the vallecula and pyriform sinuses was observed. The hyolaryngeal elevation was reduced re: reduction in base of tongue retraction strength. (Posterior wall stripping was noted in this MBSS to be reduced.) Pooling was observed in the valeculla and the pyriform sinuses. 4+ swallows were attempted in both studies to clear the solid trials from the pharynx requiring additional water to clear the pharynx. No penetration or aspiration were noted Rehabilitation Good Potential Patient Appropriate Yes: Base of tongue exercises; safe swallow strategies for Therapy Recommendations Diet Comments No change in diet recommended Aspiration Precautions Recommended Alternate Liquids/Solids,Frequent Rest Periods,Small Precautions Bites/Sips Treatment Plan Therapy Outpatient Speech Therapy Recommendations Recommended Primary Care Physician,Neurology Referrals Therapy Strategy Sitting Upright (90 deg),Small Bites and Sips,Alternate Recommendations Liquids/Solids
== END ==
PROVIDERS: Family Provider Family Medicine; PCP Family Medicine; Referring Provider Physician Assistant; Visit Provider Physician Assistant
DX: R13.10 Dysphagia, unspecified (principal); R09.A2 Foreign body sensation, throat
CPT/HCPCS: 74230; 92611

== ENCOUNTER 2025-04-23 08:14 | Outpatient (CLI) | payer MEDICARE, SELFPAY ==
[2025-04-23] VITALS (7 sets, daily range): BP systolic 130–167; BP diastolic 56–76; PULSE 72–76; RESP 14–20; TEMP 36.6; O2SAT 96–99
[2025-04-23] MEDS: MIDAZOLAM 2 MG/2 ML VIAL IV (09:37)
[2025-04-23] MEDS: LIDOCAINE 2% INJ MDV 20ML 5 ML INJ (09:42)
--- NOTE | 2025-04-23 09:54 | PM.PROC.IR.1 ---
Date/Time/Diagnoses Date of procedure: 04/23/25 Time of procedure: 09:54 Pre-procedure diagnosis: Lumbar Facet Arthropathy Post-procedure diagnosis: same Procedure Notes Procedure: 1. Right L4, L5 and S1 MB BLOCKS SA Indications: Judah is referred by Dr. Villafana for treatment of Right Axial LBP. Physician: Cisco Rogers Total Fluoroscopy time (seconds): 7 Total sedation minutes: 11 Complications: none Procedure in detail & Post-procedure care: DESCRIPTION OF PROCEDURE Fluoroscopically guided, contrast-controlled right L4, L5 and S1 medial branch blocks with 0.5cc of 2% Lidocaine. Following review of allergy and review of potential side effects and complications, including, but not necessarily limited to, infection, allergic reaction, local tissue breakdown, nerve injury, paralysis, stroke and possible , the patient indicated that the patient understood and agreed to proceed. An informed consent document was signed by the patient, witnessed by a nurse, and placed in the patient's chart. After review of previous anaesthesic history and IV conscious sedation the patient was deemed safe to proceed with today?s procedure with IV conscious sedation as ASA class II designation. Safety time-out was performed to confirm patient ID, procedure to be performed and site of procedure. IV sedation was accomplished with a combination of 2mg of Versed was administered by the RN after DO order, titrated to patient comfort during the course of the procedure while the patient remained responsive to all verbal commands In the prone position, following sterile prep and drape of the lumbar region, the right L4, L5 and S1 anatomical location of the medial branch of the dorsal ramus was identified fluoroscopically. Subsequently an anesthetic skin wheal using 1% lidocaine solution was initiated at each of the anatomical spots. Subsequently then a 22-gauge 3.5-inch spinal needle was atraumatically introduced and advanced under fluoroscopic guidance at each of the corresponding sites at the right L4, L5 and S1 MB. After negative aspiration, 0.2 cc of Isovue 200 was injected, confirming placement without vascular or intrathecal uptake. Subsequently then 0.5 cc of 2% Lidocaine solution was injected at each of the corresponding sites at the right L4, L5 and S1 medial branch locations. The patient tolerated the procedure well without signs or symptoms of complications. The procedure tolerated the procedure well without signs or symptoms of complications prior to transfer to the recovery area continued monitoring without incident. Post-procedure, the patient was monitored initiating provocative activities to measure the amount of relief from block of the facetogenic pain. The patient reported a VAS of 7 prior to the procedure and a post-procedure VAS of 1. It has been a pleasure to assist in the diagnostic and therapeutic care of your patient. POST OP INSTRUCTIONS The patient was provided with a Pain Log to complete over the next several hours and subsequent days prior to the patient's follow up with the ordering physician. If the patient has wet end operator relief to the solution applied, then they may be a candidate for medial branch rhizotomy. The patient is aware, was provided, once again, with a Pain Log and will follow up with the referring physician for review and clinical correlation.
== END 2025-04-23 13:02 | disposition home or self-care (01) ==
LOC: RAD 08:15
PROVIDERS: Family Provider Family Medicine; PCP Family Medicine; Referring Provider Physical Medicine & Rehabilitation; Visit Provider Physical Medicine & Rehabilitation
DX: M47.816 Spondylosis without myelopathy or radiculopathy, lumbar region (principal); M47.817 Spondylosis without myelopathy or radiculopathy, lumbosacral region
CPT/HCPCS: 64493; 64494; 99152; J2250